=== PATIENT | female | born 1995 | race Caucasian/White ===

== ENCOUNTER → 2018-08-10 09:12 | Outpatient (CLI) | payer BC, SELFPAY ==
[2018-08-10 08:04] VITALS: BMI 26.7
[2018-08-10 10:22] LABS: Absolute Lymphocyte Count 1.67 X10^3/ul (0.83-4.51); Absolute Neutrophil Count 4.9 X10^3/uL (2.0-7.7); Basophil# 0.03 X10^3/uL; Basophil% 0.4 % (0-1); Eosinophils% 1.4 % (0-5); Hematocrit 32.7 % (37-47); Hemoglobin 10.9 g/dl (12.0-15.0); Lymphocyte # 1.67 X10^3/ul (4.0); Lymphocyte % 23.3 % (19-41); Mean Corp Hgb Conc 33.3 g/gl (32-36); Mean Corpuscular Hgb 29.6 pg (27.0-32.0); Mean Corpuscular Volume 88.9 fL (81-99); Mean Platelet Vol. 9.6 fl (6.2-12.0); Neutrophil # 4.87 X10^3/uL (2.7-7.7); Neutrophil % 67.8 % (47-70); Platelet Count 268 K/mm3 (150-450); RBC Distribution Width CV 12.9 % (11.6-14.6); RBC Distribution Width SD 41.6 fl (35.1-43.9); Red Blood Count 3.68 M/mm3 (4.2-5.4); White Blood Count 7.2 K/mm3 (4.4-11.0)
[2018-08-10 10:30] LABS: POSITIVE COUNT NO; POSITIVE DIFFERENTIAL NO; POSITIVE MORPHOLOGY NO
[2018-08-10 11:52] LABS: HIV - WCH Non-Reactive (Nonreactive); Rubella IgG 46.7 IU/mL
[2018-08-10 17:54] LABS: Chlamydia Trachomatis by PCR Negative (Negative); Neisserai gonorrhoeae by PCR Negative (Negative); Probe Check PASS; Sample Adequacy Control PASS; Specimen Processing Control PASS
[2018-08-12 05:48] LABS: Rapid Plasmin Reagin (RPR) NONREACTIVE (NONREACTIVE)
[2018-08-15 14:55] LABS: HPV Reflexed? NOT INDICATED
== END ==
PROVIDERS: Family Provider Family Medicine; PCP Family Medicine; Referring Provider Obstetrics & Gynecology; Visit Provider Obstetrics & Gynecology
DX: Z34.90 Encounter for supervision of normal pregnancy, unspecified, unspecified trimester (principal)
CPT/HCPCS: 36415; 85025; 86592; 86703; 86762; 86850; 86900; 87086; 87088; 87491; 87591; 87624; 88175; G0145

== ENCOUNTER → 2018-12-02 08:30 | Outpatient (CLI) | payer BC, SELFPAY ==
[2018-12-02 08:27] VITALS: BMI 26.7
[2018-12-02 09:25] LABS: Absolute Neutrophil Count 6.8 X10^3/uL (2.0-7.7); Basophil# 0.06 X10^3/uL; Basophil% 0.6 % (0-1); Eosinophil# 0.13 X10^3/uL; Eosinophils% 1.3 % (0-5); Hematocrit 33.9 % (37-47); Hemoglobin 11.3 g/dL (12.0-15.0); Lymphocyte % 19.6 % (19-41); Mean Corp Hgb Conc 33.3 g/dL (32-36); Mean Corpuscular Hgb 30.8 pg (27.0-32.0); Mean Corpuscular Volume 92.4 fL (81-99); Mean Platelet Vol. 9.6 fl (6.2-12.0); Monocyte# 0.75 X10^3/uL; Monocyte% 7.7 % (0-10); NRBC Flagged by Analyzer 0 % (0-5); Neutrophil # 6.82 X10^3/uL (2.7-7.7); Neutrophil % 70.3 % (47-70); Platelet Count 237 K/mm3 (150-450); RBC Distribution Width CV 12.8 % (11.6-14.6); RBC Distribution Width SD 43.2 fl (35.1-43.9); Red Blood Count 3.67 M/mm3 (4.2-5.4); White Blood Count 9.7 K/mm3 (4.4-11.0)
[2018-12-02 09:31] LABS: Glucose Challenge Gest 1H 50g 88 mg/dL (70-140)
[2018-12-02 10:16] LABS: Hepatitis B Surface Antigen Non-Reactive (Nonreactive)
== END ==
PROVIDERS: Family Provider Family Medicine; PCP Family Medicine; Referring Provider Obstetrics & Gynecology; Visit Provider Obstetrics & Gynecology
DX: Z34.90 Encounter for supervision of normal pregnancy, unspecified, unspecified trimester (principal)
CPT/HCPCS: 36415; 82950; 85025; 87340

== ENCOUNTER → 2019-01-12 14:32 | Outpatient (CLI) | payer BC, SELFPAY ==
[2019-01-11 15:17] VITALS: BMI 26.7
[2019-01-12 15:36] LABS: Color, Urine Yellow (Yellow); Glucose, Dipstick Normal (Normal); Ketone-Dipstick Negative (Negative); Leukocyte Esterase-Dipstick 25 /ul (Negative); Nitrite-Dipstick Negative (Negative); Occult Blood-Urine 250 /ul (Negative); Protein-Dipstick 15 mg/dl (Negative); Urine Bilirubin Dipstick Negative (Negative); Urine Clarity Sl. Cloudy (Clear); Urine Urobilinogen Normal (Normal)
[2019-01-12 15:41] LABS: Amorphous Sediment 2+; Bacteria 2+ /hpf (None Seen); Mucous, Urine RARE /hpf (<or=2+); Red Blood Cells-Urine 25-50 SEEN /hpf (0-5); Squamous Epithelial Cells - UA 0-5 SEEN /hpf (5-10); White Blood Cells 5-10 SEEN /hpf (0-5)
== END ==
PROVIDERS: Family Provider Family Medicine; PCP Family Medicine; Referring Provider Nurse Practitioner Family; Visit Provider Nurse Practitioner Family
DX: N39.0 Urinary tract infection, site not specified (principal); R35.0 Frequency of micturition
CPT/HCPCS: 81001; 87086

== ENCOUNTER 2019-01-12 19:05 | Outpatient (CLI) | payer BC, SELFPAY ==
[2019-01-11 15:17] VITALS: BMI 26.7
[2019-01-12 19:41] VITALS: BMI 31.8
[2019-01-12 20:14] LABS: Absolute Lymphocyte Count 2.19 X10^3/uL (0.83-4.51); Absolute Neutrophil Count 10.1 X10^3/uL (2.0-7.7); Basophil# 0.03 X10^3/uL; Basophil% 0.2 % (0-1); Eosinophil# 0.08 X10^3/uL; Eosinophils% 0.6 % (0-5); Hematocrit 31.8 % (37-47); Hemoglobin 10.7 g/dL (12.0-15.0); Lymphocyte # 2.19 X10^3/ul (4.0); Lymphocyte % 16.5 % (19-41); Mean Corp Hgb Conc 33.6 g/dL (32-36); Mean Corpuscular Hgb 30.1 pg (27.0-32.0); Mean Corpuscular Volume 89.6 fL (81-99); Mean Platelet Vol. 10.1 fl (6.2-12.0); Monocyte# 0.78 X10^3/uL; Monocyte% 5.9 % (0-10); NRBC Flagged by Analyzer 0 % (0-5); Neutrophil # 10.12 X10^3/uL (2.7-7.7); Neutrophil % 76.3 % (47-70); Platelet Count 227 K/mm3 (150-450); RBC Distribution Width CV 12.5 % (11.6-14.6); Red Blood Count 3.55 M/mm3 (4.2-5.4); White Blood Count 13.3 K/mm3 (4.4-11.0)
[2019-01-12] MEDS: Ondansetron 4 MG/2 ML Vial IV (20:14)
[2019-01-12] MEDS: HYDROmorphone 1 MG/ML Syringe IV (20:14)
--- NOTE | 2019-01-12 20:18 | CT_ITS ---
STUDY: CT ABDOMEN AND PELVIS WITHOUT CONTRAST REASON FOR EXAM: Female, 23 years old. Flank pain. Surgery 1 week . RADIATION DOSAGE (If Supplied By Facility): CTDIvol = ( 012.00 ) mGy, DLP = ( 603.02 ) mGycm TECHNIQUE: Transaxial images were obtained from the dome of the diaphragm to the symphysis pubis without oral contrast, and without intravenous contrast. Sagittal and coronal images were reconstructed. Individualized dose optimization techniques were used for this CT. COMPARISON: None. FINDINGS: The visualized lung bases are unremarkable. The visualized portions of the heart are within normal limits. Normal liver. Normal gallbladder and extrahepatic biliary system. Normal spleen. Normal pancreas. Normal bilateral adrenal glands. There is a 3 mm nonobstructing calculus in the mid right kidney. No other evidence of renal abnormality. Normal left kidney. Normal visualized ureters. Normal visualized stomach. Normal small intestine. There is feces scattered throughout the nondistended colon. The appendix is visualized and appears normal. Normal abdominal aorta. Normal inferior vena cava. Normal retroperitoneum. Normal urinary bladder. Uterus is enlarged. There is evidence of a late term intrauterine in a cephalic presentation. No obvious anatomic abnormality. The placenta appears fundal and posterior in location. There is adequate amniotic fluid. There is no free air or free fluid within the abdominal cavity. Normal abdominal wall. Normal osseous structures. CT/Abdomen/Pelvis without Cont IMPRESSION: 1. Nonobstructing right renal calculus. There is no other obvious renal or ureteral or urinary bladder abnormality. 2. Late term intrauterine . 3. No other evidence of acute intra-abdominal or pelvic abnormality. Electronically Signed: José Luis Haines DO at 20:55 EST Tel [phone], Service support ,
[2019-01-12] MEDS: 0.9% Normal Saline 1,000 ML IV.SOLN. 1000 ML IV (21:06)
[2019-01-12] MEDS: Ceftriaxone 1 GM/50 ML BAG IV (21:19)
--- NOTE | 2019-01-13 04:02 | OB.TRI.NOTE ---
- Problem List (1) Nephrolithiasis Status: Acute Comment: seen 01/12- ct showed kidney stones, recommend fluids and given augmentin History of Present Illness Date of Service: 01/12/19 Was patient seen by the physician?: No Reason For Visit: LEFT SIDED BACK PAIN History of Present Illness: flank pain, recent UTI Allergies No Known Allergies Allergy (Verified 01/12/19 19:42) - Pertinent Past Medical History Medical History: Past Medical History (Last Reviewed 01/11/19 @ 15:07 by Ethan Foreman) History of cardiac murmur Family history of heart murmur Surgical History: Past Surgical History (Last Reviewed 01/11/19 @ 15:07 by Ethan Foreman) S/P tonsillectomy and adenoidectomy Laboratory Studies: Laboratory Tests 01/12/19 Range/Units 20:05 WBC 13.3 H (4.4-11.0) K/mm3 RBC 3.55 L (4.2-5.4) M/mm3 Hgb 10.7 L (12.0-15.0) g/dL Hct 31.8 L (37-47) % MCV 89.6 (81-99) fL MCH 30.1 (27.0-32.0) pg MCHC 33.6 (32-36) g/dL RDW Std Deviation 41.0 (35.1-43.9) fl RDW Coeff of Toni 12.5 (11.6-14.6) % Plt Count 227 (150-450) K/mm3 MPV 10.1 (6.2-12.0) fl Immature Gran % (Auto) 0.500 (0.0-0.9) % Neut % (Auto) 76.3 H (47-70) % Lymph % (Auto) 16.5 L (19-41) % Waller % (Auto) 5.9 (0-10) % Eos % (Auto) 0.6 (0-5) % Baso % (Auto) 0.2 (0-1) % Absolute Neuts (auto) 10.1 H (2.0-7.7) X10^3/uL Absolute Lymphs (auto) 2.19 (0.83-4.51) X10^3/uL Nucleated RBC % 0 (0-5) % NST - FHR Rate Baby A Baseline: 130 Variability:: Moderate Accelerations:: 15 x 15 Decelerations:: None NST Reactive:: Yes FHR Category:: Category I Uterine Activity:: irregular Impression/Plan nephrolithiasis Multi Select Codes - Urinary/Genital Urinary/Genital CPT Codes: 05730-63 non-stress test Interp
== END 2019-01-12 22:50 | disposition home or self-care (01) ==
LOC: WPOUT 19:16 → WP 19:20
PROVIDERS: Family Provider Family Medicine; PCP Family Medicine; Referring Provider Obstetrics & Gynecology; Visit Provider Obstetrics & Gynecology
DX: O26.831 Pregnancy related renal disease, first trimester (principal); N20.0 Calculus of kidney; Z3A.00 Weeks of gestation of pregnancy not specified
CPT/HCPCS: 96365; 96366; 96367; 36415; 59025; 59050; 74176; 85025; 87086; 99218; J7030; G0378; J2405

== ENCOUNTER → 2019-02-13 12:53 | Outpatient (CLI) | payer BC, SELFPAY ==
[2019-02-13 08:28] VITALS: BMI 31.8
== END ==
PROVIDERS: Family Provider Family Medicine; PCP Family Medicine; Referring Provider Nurse Practitioner Women's Health; Visit Provider Nurse Practitioner Women's Health
DX: Z34.90 Encounter for supervision of normal pregnancy, unspecified, unspecified trimester (principal)
CPT/HCPCS: 87081

== ENCOUNTER 2019-03-11 09:01 | Outpatient (CLI) | payer BC, SELFPAY ==
[2019-03-10 10:12] VITALS: BMI 31.8
[2019-03-11 09:20] VITALS: BMI 33.5
--- NOTE | 2019-03-11 10:41 | OB.TRI.PN ---
Progress Notes Date of Service: 03/11/19 Progress Note: seen for vb and abdminal pain fht 140s moderate vairbilaity reactive no decels cat I toco q 2-4 a/p abdominal pain - false labor dc home no cervical change labor precautions and kick counts Multi Select Codes - Urinary/Genital Urinary/Genital CPT Codes: 26366-63 non-stress test Interp
== END 2019-03-11 09:40 | disposition home or self-care (01) ==
PROVIDERS: PCP Family Medicine; Referring Provider Obstetrics & Gynecology; Visit Provider Obstetrics & Gynecology
DX: O47.9 False labor, unspecified (principal); Z3A.00 Weeks of gestation of pregnancy not specified
CPT/HCPCS: 59025; 59050; 99218; G0378

== ENCOUNTER 2019-03-12 09:10 | Inpatient (IN) | payer BC, SELFPAY ==
[2019-03-11 09:20] VITALS: BMI 33.5
[2019-03-12] MEDS: Lactated Ringers 1,000 ML 50 ML IV (09:40)
[2019-03-12 09:57] VITALS: BMI 33.5
[2019-03-12 10:22] LABS: Absolute Lymphocyte Count 2.13 X10^3/uL (0.83-4.51); Absolute Neutrophil Count 9.9 X10^3/uL (2.0-7.7); Basophil# 0.06 X10^3/uL; Basophil% 0.5 % (0-1); Eosinophil# 0.03 X10^3/uL; Eosinophils% 0.2 % (0-5); Hematocrit 38.3 % (37-47); Hemoglobin 12.5 g/dL (12.0-15.0); Lymphocyte # 2.13 X10^3/ul (4.0); Lymphocyte % 16.3 % (19-41); Mean Corp Hgb Conc 32.6 g/dL (32-36); Mean Corpuscular Hgb 29.2 pg (27.0-32.0); Mean Corpuscular Volume 89.5 fL (81-99); Mean Platelet Vol. 11.5 fl (6.2-12.0); Monocyte# 0.74 X10^3/uL; Monocyte% 5.7 % (0-10); NRBC Flagged by Analyzer 0 % (0-5); Neutrophil # 9.91 X10^3/uL (2.7-7.7); Neutrophil % 75.6 % (47-70); Platelet Count 228 K/mm3 (150-450); RBC Distribution Width CV 14.6 % (11.6-14.6); RBC Distribution Width SD 46.8 fl (35.1-43.9); Red Blood Count 4.28 M/mm3 (4.2-5.4); White Blood Count 13.1 K/mm3 (4.4-11.0)
--- NOTE | 2019-03-12 10:32 | PCM.HP.OB ---
- Problem List (1) Active labor at term Status: Acute (2) Supervision of normal Status: Acute Qualifiers: Comment: PRR (HepB) ALLIE 03/10/2019 girl Spouse Abram (3) Status: Acute Qualifiers: Comment: declined genetic, carrier and NTD. MFM Anatomy US normal. Cardiac and spine views complete and normal History Date of Admission: 03/12/19 Final ALLIE: 03/10/19 Gestational age: 40 Weeks and 2 Days History of this : This is a 24 year-old, at 40 weeks gestational age presents IAL 4-5 cm. she co regular ctx and no vb or lof Medical History: Medical History (Last Reviewed 03/10/19 @ 10:08 by Nita Frost) History of cardiac murmur Z86.79 Family history of heart murmur Z84.89 Surgical History: Surgical History (Last Reviewed 03/10/19 @ 10:08 by Nita Frost) S/P tonsillectomy and adenoidectomy Z90.89 Allergies No Known Allergies Allergy (Verified 03/10/19 10:08) Home Medications: Home Medications vitamin#30 30 mg iron-10 mg iron-folic acid 1 mg-omg3 capsule 1 cap PO DAILY cap 08/10/18 Magnesium Citrate [Citrate Of Magnesia] 300 ml PO Q8 03/11/19 Smoking Status: Former smoker Number of Fetus(es): 1 NST - FHR Rate Baby A Baseline: 130 Variability:: Moderate Accelerations:: 15 x 15 Decelerations:: None NST Reactive:: Yes FHR Category:: Category I Uterine Activity:: q 2-3 History Past Pregnancies: Past Pregnancies Delivery Date Name GA/ Weeks Outcome Route Wt Sex Labor Length Anesthesia Delivery Location Provider FOB Labs: Mom's Labs & Results 03/12/19 03/12/19 09:40 09:40 WBC 13.1 H RBC 4.28 Hgb 12.5 Hct 38.3 MCV 89.5 MCH 29.2 MCHC 32.6 RDW Std Deviation 46.8 H RDW Coeff of Toni 14.6 Plt Count 228 MPV 11.5 Immature Gran % (Auto) 1.700 H Neut % (Auto) 75.6 H Lymph % (Auto) 16.3 L [place] % (Auto) 5.7 Eos % (Auto) 0.2 Baso % (Auto) 0.5 Absolute Neuts (auto) 9.9 H Absolute Lymphs (auto) 2.13 Nucleated RBC % 0 Blood Type Pending Antibody Screen Pending Course Did the patient receive Yes care? Labs RPR/VDRL/Syphilis Nonreactive Rubella status Equivocal HbSAg Negative Date Done: 12/02/18 Chlamydia Negative Gonorrhea Negative HIV/AIDS Reactive Group B Strep: Negative Social History Hx Smoking Yes Smoking Status Former smoker How long have you used denies substances (years)? Expected Delivery Method: Spontaneous Vaginal Review of Systems Constitutional: Denies: Fever, Malaise Eyes: Denies: Blurred vision, Vision Change HEENT: Denies: Head Aches, Visual Changes Cardiovascular: Denies: Chest Pain, Palpitations Respiratory: Denies: Cough, Shortness of Breath, Wheezing Gastrointestinal: Denies: Abdominal Pain, Diarrhea, Nausea, Vomiting Genitourinary: Denies: Dysuria, Hematuria Musculoskeletal: Denies: Joint Pain, Muscle pain Skin: Denies: Lesions, Rash Neurological: Denies: Blurred vision, Focal weakness, Headaches Psychiatric: Denies: Anxiety, Depression Endocrine: Denies: Heat/ Cold Intolerance Hematologic/ Lymphatic: Denies: Easy Bruising, Easy Bleeding Physical Exam General: Alert, Cooperative, No apparent distress HEENT: Atraumatic, Normocephalic. Negative for: Thyromegaly, Lymphadenopathy Cardiovascular: Regular rate Lungs: Normal air movement Abdomen: Soft, Non Tender, Gravid Neurological: Deep Tendon Reflexes 2+/4 and Symmetrical, Neuro grossly intact. Negative for: Clonus [employer]: Normal external genitalia. Negative for: Vulvar lesions Estimated gestational size: Appropriate for gestational size Presentation: Cephalic Cervix Dilation (cm): 4.5 Assessment/Plan All Active Problems (Last Reviewed 03/10/19 @ 10:08 by Nita Frost) Nephrolithiasis (Acute) Active labor at term (Acute) Supervision of normal (Acute) (Acute) Missed (Resolved) Threatened (Resolved) This is a 24 year-old, , at 40 weeks gestational age presents IAL. Patient presents IAL, arom and pit PRN. Pain management: plans epidural. GBS neg. Management of any complications: none I have reviewed the [facility] and made any clinically relevant updates.
[2019-03-12] MEDS: Ondansetron 4 MG/2 ML Vial IV (16:53)
[2019-03-12] MEDS: 0.9% Saline Lock 10 ML Syringe IV ×2 (16:53→23:42)
[2019-03-12] MEDS: Lactated Ringers 500 ML 999 ML IV ×2 (17:15→20:15)
[2019-03-12] MEDS: fentaNYL-bupivacaine (epidural) 100 ML BAG EPIDURAL (18:09)
--- NOTE | 2019-03-12 21:27 | PCM.OPRPT ---
Problem List (1) Active labor at term Status: Acute (2) Supervision of normal Status: Acute Qualifiers: Comment: PRR (HepB) ALLIE 03/10/2019 girl Spouse Abram (3) Status: Acute Qualifiers: Comment: declined genetic, carrier and NTD. MFM Anatomy US normal. Cardiac and spine views complete and normal (4) Fourth degree perineal laceration during delivery, delivered Status: Acute Comment: intermediate risk for recurrence- may be considered if smaller EFW Vaginal Delivery Maternal Presentation: Active Labor ial Amniotic Membrane Rupture Type: Artificial Amniotic Fluid Description: Clear Final ALLIE: 03/10/19 Gestational age: 40 Weeks and 2 Days Date of Procedure: 03/12/19 Pre-Operative Diagnosis: ial Post-Operative Diagnosis: same plus 4th degree laceration Surgery/ Procedure Performed: Spontaneous Vaginal Delivery Type of Anesthesia: Epidural Description of Procedure: Patient began pushing and delivered the head in the CHRISTY presentation. The head was delivered atraumatically . The anterior and posterior shoulders delivered without complication followed by the rest of the and the infant was placed on the maternal abdomen. Delayed cord clamping was employed for approximately 60 seconds. Cord was clamped and cut and gentle traction was applied to the cord and the placenta delivered spontaneously immediately following it was noted to be intact with three-vessel cord. The perineum and vagina were inspected and noted to have what was initially thought to be third-degree perineal laceration which was repaired partially and then with rectal exploration a small rectal mucosal tear was noted and therefore the repair was taken down and redone to include the rectal mucosa separation making and 1/4 degree perineal laceration. The rectal mucosa was reapproximated in 2 layers with 3-0 Vicryl Rapide and a third layer overlapping and reapproximating the rectovaginal fascia was done and the anal sphincter was repaired including the capsule and muscle with 2 interrupted [id number] stitches of 2-0 PDS. The rest of the laceration was then closed per routine incorporating Betadine washes throughout the repair and changing gloves. The repair came together well and excellent hemostasis was noted. Increased EBL was noted overall due to the lacerations. EBL was 700 cc. Some postdelivery hypotension was noted which was felt to be intravascular depletion and therefore IV fluids including hetastarch was given and a stat hemoglobin was sent. Upon review of the predelivery hemoglobin and taking to account EBL, significant anemia is unlikely. Patient and tolerated delivery well. Presentation: CHRISTY Placental Delivery Description: Spontaneous Placenta Disposition: [facility] Cord Vessel Description: 3 Vessels Estimated Blood Loss: 700 Infant A gender: Female Episiotomy Description: None Laceration: Perineal Extension/lac, 4th Degree Medications given after delivery: IV Pitocin Complications: None Multi Select Codes - Urinary/Genital Urinary/Genital CPT Codes: 95854 Vaginal Delivery global pkg - fourth degree laceration repair
[2019-03-12] MEDS: Oxytocin 30 units/NS 500 ml 30 UNITS/500 ML IV.SOLN 999 UNITS IV (22:05)
[2019-03-12] MEDS: Lactated Ringers 1,000 ML 999 ML IV (22:31)
[2019-03-12] MEDS: Oxytocin 30 units/NS 500 ml 30 UNITS/500 ML IV.SOLN 334 UNITS IV (22:35)
[2019-03-12 22:50] LABS: Hematocrit 26.7 % (37-47); Hemoglobin 8.8 g/dL (12.0-15.0)
[2019-03-12] MEDS: Cefazolin 2 GM in 0.9% Normal Saline 100 ML IV (23:22)
[2019-03-12] MEDS: Ketorolac 30 MG/ML Syringe IM (23:41)
[2019-03-13 03:55] VITALS: BP 115/75; PULSE 75; RESP 16; TEMP 36.9
[2019-03-13 04:55] VITALS: BP 107/58
[2019-03-13] MEDS: Ketorolac 10 MG Tablet PO ×3 (06:39→17:55)
[2019-03-13 07:51] VITALS: BP 109/67; PULSE 80; RESP 16; TEMP 36.8
--- NOTE | 2019-03-13 08:19 | PCM.PN.OB ---
Patient Problems: Active and Suspected Problems (Last Reviewed 03/10/19 @ 10:08 by Nita Frost) Active labor at term (Acute) Fourth degree perineal laceration during delivery, delivered (Acute) intermediate risk for recurrence- may be considered if smaller EFW Subjective: Doing well, no complaints.Pain controlled. Denies CP, SOB, N,V. Ambulating well, tolerating po. Lochia moderate, going well. Has not urinated yet, straight cath early AM - Physical Exam Vitals/I&O's: Vital Signs Temp Pulse Resp BP 98.3 F 80 16 109/67 03/13/19 07:51 03/13/19 07:51 03/13/19 07:51 03/13/19 07:51 Oxygen Delivery Method Room Air Weight: 189 lb 3.2 oz Body Mass Index (BMI) 33.5 Intake and Output for Last 24 Hours 03/11/19 03/12/19 03/13/19 23:59 23:59 23:59 Intake Total 3271.59 / 3271.59 437.43 / 437.43 Output Total 80 / 80 200 / 200 Balance 3191.59 / 3191.59 237.43 / 237.43 General: Alert, Oriented x3 Abdomen: Soft, Non Tender, Non-Distended, - - FF below U. Per nurse exam-perineum well approximated and limited edema. Laboratory Results 03/12/19 09:40: WBC 13.1 H, RBC 4.28, Hgb 12.5, Hct 38.3, MCV 89.5, MCH 29.2, MCHC 32.6, RDW Std Deviation 46.8 H, RDW Coeff of Toni 14.6, Plt Count 228, MPV 11.5, Immature Gran % (Auto) 1.700 H, Neut % (Auto) 75.6 H, Lymph % (Auto) 16.3 L, Ashley % (Auto) 5.7, Eos % (Auto) 0.2, Baso % (Auto) 0.5, Absolute Neuts (auto) 9.9 H, Absolute Lymphs (auto) 2.13, Nucleated RBC % 0 03/12/19 09:40: Blood Type A POSITIVE, Antibody Screen NEGATIVE 03/12/19 22:41: Hgb 8.8 L, Hct 26.7 L Current Medications Acetaminophen (Tylenol) 1,000 mg PO Q8H PRN PRN PRN Reason: Pain Score 1-3/10 Bisacodyl (Dulcolax) 10 mg RECTAL UD PRN PRN Reason: If no BM Dibucaine (Dibucaine) 1 applic TOPICAL TID PRN PRN; Protocol PRN Reason: Discomfort Fentanyl/Bupivacaine/Sodium Chlor () 0 ml EPIDURAL UD [facility]; Protocol Last Admin: 03/12/19 18:09 Dose: 10 ml Documented by: Hydrocortisone (Hytone) 1 applic TOPICAL TID PRN PRN; Protocol PRN Reason: Discomfort Naloxone HCl 4 mg/ Dextrose 504 mls @ 0 mls/hr IV .Q0M PRN; Protocol PRN Reason: To maintain Resp. rate >10 Ketorolac Tromethamine (Toradol) 10 mg PO Q6H [facility] Stop: 03/17/19 22:52 Last Admin: 03/13/19 06:39 Dose: 10 mg Documented by: Methylergonovine Maleate (Methergine) 0.2 mg IM X1 PRN PRN Reason: Excess bleeding/uterine atony Naloxone HCl (Narcan) 0.02 mg IV Q1M PRN PRN Reason: RR <10 and pt unresponsive Naproxen (Naprosyn) 500 mg PO Q8H PRN PRN PRN Reason: Pain Score 1-3/10 Ondansetron HCl (Zofran) 4 mg IV Q4H PRN PRN PRN Reason: Nausea Oxycodone HCl (Oxyir) 5 - 10 mg PO Q4H PRN PRN PRN Reason: Pain Score 4-10/10 Multivit/Folic Acid/Iron (Prenatabs Fa) 1 tablet PO DAILY@1200 [facility] Senna/Docusate Sodium (Senokot-S, Beverly-Colace) 1 tablet PO BID [facility] Simethicone (Mylicon) 80 mg PO PCHS PRN PRN Reason: Indigestion/Stomach pain Sodium Chloride () 5 - 15 ml IV UD PRN PRN Reason: SALINE FLUSH Last Admin: 03/12/19 23:42 Dose: 10 ml Documented by: Medical Necessity - Tobacco Use Smoking Status: Former smoker Assessment/Plan All Active Problems (Last Reviewed 03/10/19 @ 10:08 by Nita Frost) Nephrolithiasis (Acute) Active labor at term (Acute) Fourth degree perineal laceration during delivery, delivered (Acute) Supervision of normal (Acute) (Acute) Missed (Resolved) Threatened (Resolved) s/p PPD # 1 1. routine post delivery care 2. breast feeding- support given 3. rh positive 4. rubella equivicol, plan MMR 5. stool softener scheduled.
[2019-03-13] MEDS: Senna/Docusate Sodium 1 Tablet PO ×2 (09:02→22:08)
[2019-03-13] MEDS: Prenatal Vits Tablet 1 TABLET PO (13:00)
[2019-03-13 13:05] VITALS: BP 102/63; PULSE 78; TEMP 36.9
--- NOTE | 2019-03-13 13:41 | NURSING ---
This instructor reviewed the documentation completed by Maggie Funk, student nurse. Also, directly observed the medication administration of toradol and vitamins.
[2019-03-13 18:00] VITALS: BP 118/69; PULSE 91; RESP 16; TEMP 36.9
[2019-03-13 20:24] VITALS: BP 112/78; PULSE 93; RESP 16; TEMP 37.4
[2019-03-14] MEDS: Ketorolac 10 MG Tablet PO ×3 (00:18→12:34)
[2019-03-14 03:16] VITALS: BP 107/55; PULSE 73; RESP 16; TEMP 37.1
--- NOTE | 2019-03-14 06:57 | DCINST_ITS ---
Discharge Diet: No Restrictions Discharge Activity: Return to Normal Activity, May not drive while taking narcotic pain medications., May Shower May resume sexual activity in: 4-6 weeks Call your doctor if your incision/area has: Continuous Slow Oozing, Sudden Increased Bleeding, Increased Pain/ Swelling, Increased Redness, Foul Smelling Discharge Additional Instructions: If you experience any of the following, contact your healthcare provider. * Bleeding that soaks a pad every hour for 2 hours * Fever 100.4 or higher * Unrelieved incision or abdominal pain * Swelling, redness, discharge or bleeding from your incision or episiotomy site * Your incision begins to separate * Problems urinating (including inability to urinate or burning while urinating). * Visual changes * Severe headache * Flu-like symptoms * Pain or redness in one of both of your breasts * Pain, warmth, tenderness or swelling in your legs, especially the calf area * Frequent nausea and vomiting * Symptoms of depression or anxiety If you experience any of the following, call 911 or go to the nearest Emergency Room. * Chest pain * Problems breathing * Seizure activity * Partial or complete paralysis of a body part, slurred speech, weakness or drooping of the face, or a sudden inability to walk or hold your balance Allergies/Adverse Reactions: Allergies No Known Allergies Allergy (Verified 03/12/19 11:18) Medications to take at Discharge vitamin#30 30 mg iron-10 mg iron-folic acid 1 mg-omg3 capsule 1 cap PO DAILY cap 08/10/18 Magnesium Citrate [Citrate Of Magnesia] 300 ml PO Q8 03/11/19 Docusate Sodium [Colace] 100 mg PO BID #60 cap 03/14/19 Ibuprofen [Motrin] 600 mg PO Q6H PRN PRN #30 tab 03/14/19 Oxycodone HCl/Acetaminophen [Percocet 5-325] 1 - 2 tablet PO Q6H PRN PRN 7 Days #15 tablet 03/14/19 The following prescriptions were given: Docusate Sodium [Colace] 100 mg PO BID #60 cap Transmission Status: Pending to [facility] Ibuprofen [Motrin] 600 mg PO Q6H PRN PRN #30 tab PRN Reason: Pain Transmission Status: Pending to [facility] Oxycodone HCl/Acetaminophen [Percocet 5-325] 1 - 2 tablet PO Q6H PRN PRN 7 Days #15 tablet PRN Reason: Pain Transmission Status: Sent to [facility] Please Follow Up With: Lois Killian MD - [phone] When: Call to make an appointment with your doctor in 6 weeks. If you had elevated Blood pressure or 4th degree laceration you will need to be seen in 2 weeks. Primary Care Physician: Lele Barraza III, MD [Primary Care Provider] - Test Results: Test results from this visit will be discussed in further detail at your follow- up appointment, if applicable.
--- NOTE | 2019-03-14 08:05 | PCM.PN.OB ---
Patient Problems: Active and Suspected Problems (Last Reviewed 03/10/19 @ 10:08 by Nita Frost) Active labor at term (Acute) Fourth degree perineal laceration during delivery, delivered (Acute) intermediate risk for recurrence- may be considered if smaller EFW Subjective: Doing well, no complaints.Pain controlled. Did have 4th degree lac-states pain controlled. Denies CP, SOB, N,V. Ambulating well, tolerating po. Lochia moderate, going well. - Physical Exam Vitals/I&O's: Vital Signs Temp Pulse Resp BP 98.7 F 73 16 107/55 L 03/14/19 03:16 03/14/19 03:16 03/14/19 03:16 03/14/19 03:16 Oxygen Delivery Method Room Air Weight: 189 lb 3.2 oz Body Mass Index (BMI) 33.5 Intake and Output for Last 24 Hours 03/12/19 03/13/19 03/14/19 23:59 23:59 23:59 Intake Total 3271.59 / 3271.59 437.43 / 437.43 Output Total 80 / 80 1580 / 1580 Balance 3191.59 / 3191.59 -1142.57 / -1142.57 General: Alert, Oriented x3 Abdomen: Soft, Non Tender, Non-Distended, - - FF below U Current Medications Acetaminophen (Tylenol) 1,000 mg PO Q8H PRN PRN PRN Reason: Pain Score 1-3/10 Bisacodyl (Dulcolax) 10 mg RECTAL UD PRN PRN Reason: If no BM Dibucaine (Dibucaine) 1 applic TOPICAL TID PRN PRN; Protocol PRN Reason: Discomfort Fentanyl/Bupivacaine/Sodium Chlor () 0 ml EPIDURAL UD [facility]; Protocol Last Admin: 03/14/19 07:46 Dose: Not Given Documented by: Hydrocortisone (Hytone) 1 applic TOPICAL TID PRN PRN; Protocol PRN Reason: Discomfort Naloxone HCl 4 mg/ Dextrose 504 mls @ 0 mls/hr IV .Q0M PRN; Protocol PRN Reason: To maintain Resp. rate >10 Ketorolac Tromethamine (Toradol) 10 mg PO Q6H [facility] Stop: 03/17/19 22:52 Last Admin: 03/14/19 06:06 Dose: 10 mg Documented by: Methylergonovine Maleate (Methergine) 0.2 mg IM X1 PRN PRN Reason: Excess bleeding/uterine atony Naloxone HCl (Narcan) 0.02 mg IV Q1M PRN PRN Reason: RR <10 and pt unresponsive Naproxen (Naprosyn) 500 mg PO Q8H PRN PRN PRN Reason: Pain Score 1-3/10 Ondansetron HCl (Zofran) 4 mg IV Q4H PRN PRN PRN Reason: Nausea Oxycodone HCl (Oxyir) 5 - 10 mg PO Q4H PRN PRN PRN Reason: Pain Score 4-10/10 Multivit/Folic Acid/Iron (Prenatabs Fa) 1 tablet PO DAILY@1200 [facility] Last Admin: 03/13/19 13:00 Dose: 1 tablet Documented by: Senna/Docusate Sodium (Senokot-S, Beverly-Colace) 1 tablet PO BID [facility] Last Admin: 03/13/19 22:08 Dose: 1 tablet Documented by: Simethicone (Mylicon) 80 mg PO PCHS PRN PRN Reason: Indigestion/Stomach pain Sodium Chloride () 5 - 15 ml IV UD PRN PRN Reason: SALINE FLUSH Last Admin: 03/12/19 23:42 Dose: 10 ml Documented by: Medical Necessity - Tobacco Use Smoking Status: Former smoker Assessment/Plan All Active Problems (Last Reviewed 03/10/19 @ 10:08 by Nita Frost) Nephrolithiasis (Acute) Active labor at term (Acute) Fourth degree perineal laceration during delivery, delivered (Acute) Supervision of normal (Acute) (Acute) Missed (Resolved) Threatened (Resolved) s/p PPD # 2 1. routine post delivery care 2. breast feeding- support given 3. rh equivocal-MMR 4. rubella immune 5. Encouraged stool softener at home 6. Home today.
[2019-03-14 09:30] VITALS: BP 110/56; PULSE 88; RESP 16; TEMP 36.4
[2019-03-14] MEDS: Senna/Docusate Sodium 1 Tablet PO (12:34)
[2019-03-14] MEDS: Prenatal Vits Tablet 1 TABLET PO (12:35)
== END 2019-03-14 13:25 | disposition home or self-care (01) | DRG 768 ==
PROVIDERS: Admitting Provider Obstetrics & Gynecology; PCP Family Medicine; Referring Provider Obstetrics & Gynecology; Visit Provider Obstetrics & Gynecology
DX: O36.0130 Maternal care for anti-D [Rh] antibodies, third trimester, not applicable or unspecified (principal); Z37.0 Single live birth; O70.3 Fourth degree perineal laceration during delivery; O26.53 Maternal hypotension syndrome, third trimester; Z3A.40 40 weeks gestation of pregnancy; Z86.79 Personal history of other diseases of the circulatory system; Z87.891 Personal history of nicotine dependence
CPT/HCPCS: 59025; 59050; 85014; 85018; 85025; 86850; 86900; 86901; 99218; J7120; A4216; G0378; J2405

== ENCOUNTER → 2020-07-10 13:40 | Outpatient (CLI) | payer OTHER, SELFPAY ==
[2020-07-10 13:01] VITALS: BMI 33.5
[2020-07-10 14:20] LABS: Absolute Lymphocyte Count 1.12 X10^3/uL (0.83-4.51); Absolute Neutrophil Count 6.9 X10^3/uL (2.0-7.7); Basophil# 0.03 X10^3/uL; Basophil% 0.3 % (0-1); Eosinophil# 0.04 X10^3/uL; Eosinophils% 0.5 % (0-5); Hematocrit 34.7 % (37-47); Hemoglobin 11.7 g/dL (12.0-15.0); Lymphocyte # 1.12 X10^3/ul (0.83-4.51); Lymphocyte % 12.9 % (19-41); Mean Corp Hgb Conc 33.7 g/dL (32-36); Mean Corpuscular Hgb 30.7 pg (27.0-32.0); Mean Corpuscular Volume 91.1 fL (81-99); Monocyte# 0.54 X10^3/uL; Monocyte% 6.2 % (0-10); NRBC Flagged by Analyzer 0 % (0-5); Neutrophil # 6.91 X10^3/uL (2.7-7.7); Neutrophil % 79.8 % (47-70); Platelet Count 223 K/mm3 (150-450); RBC Distribution Width CV 12.6 % (11.6-14.6); RBC Distribution Width SD 41.7 fl (35.1-43.9); Red Blood Count 3.81 M/mm3 (4.2-5.4); White Blood Count 8.7 K/mm3 (4.4-11.0)
[2020-07-10 17:45] LABS: Amphetamine Urine VISTA NEGATIVE (<1000 ng/mL); Barbiturate Urine VISTA NEGATIVE (< 200 ng/mL); Benzodiazepine Urine VISTA NEGATIVE (< 200 ng/mL); Cocaine Urine VISTA NEGATIVE (< 300 ng/mL); Ecstacy Urine VISTA NEGATIVE (< 500 ng/mL); Methadone Urine VISTA NEGATIVE (< 300 ng/mL); PCP Urine VISTA NEGATIVE (< 25 ng/mL); THC Urine VISTA NEGATIVE (< 50 ng/mL); Vista UDS pH Range 7
[2020-07-11 10:33] LABS: HIV - WCH Non-Reactive (Nonreactive); Hepatitis B Surface Antigen Non-Reactive (Nonreactive); Hepatitis C Antibody Non-Reactive (Nonreactive); Rubella IgG Reactive (Nonreactive); Syphilis Antibodies Non-reactive
[2020-07-13 03:06] LABS: Chlamydia By Nucleic Acid AMP Negative (Negative)
[2020-07-13 07:33] LABS: Gonococcus By Nucleic Acid AMP Negative (Negative)
== END ==
PROVIDERS: PCP Family Medicine; Referring Provider Obstetrics & Gynecology; Visit Provider Obstetrics & Gynecology
DX: O26.891 Other specified pregnancy related conditions, first trimester (principal); Z67.91 Unspecified blood type, Rh negative; Z3A.01 Less than 8 weeks gestation of pregnancy
CPT/HCPCS: 36415; 80307; 85025; 86703; 86762; 86780; 86803; 86850; 86900; 86901; 87086; 87088; 87340; 87491; 87591

== ENCOUNTER → 2020-11-29 09:31 | Outpatient (CLI) | payer OTHER, SELFPAY ==
[2020-11-29 09:50] LABS: Absolute Lymphocyte Count 1.91 X10^3/uL (0.83-4.51); Absolute Neutrophil Count 6.1 X10^3/uL (2.0-7.7); Basophil# 0.04 X10^3/uL; Basophil% 0.4 % (0-1); Eosinophil# 0.14 X10^3/uL; Eosinophils% 1.6 % (0-5); Hematocrit 32.9 % (37-47); Hemoglobin 10.8 g/dL (12.0-15.0); Lymphocyte # 1.91 X10^3/ul (0.83-4.51); Lymphocyte % 21.3 % (19-41); Mean Corp Hgb Conc 32.8 g/dL (32-36); Mean Corpuscular Hgb 30.3 pg (27.0-32.0); Mean Corpuscular Volume 92.2 fL (81-99); Mean Platelet Vol. 9.9 fl (6.2-12.0); Monocyte# 0.75 X10^3/uL; Monocyte% 8.4 % (0-10); NRBC Flagged by Analyzer 0 % (0-5); Neutrophil # 6.06 X10^3/uL (2.7-7.7); Neutrophil % 67.5 % (47-70); Platelet Count 226 K/mm3 (150-450); RBC Distribution Width CV 13.5 % (11.6-14.6); RBC Distribution Width SD 45.8 fl (35.1-43.9); Red Blood Count 3.57 M/mm3 (4.2-5.4)
== END ==
PROVIDERS: Referring Provider Obstetrics & Gynecology; Visit Provider Obstetrics & Gynecology
DX: Z34.80 Encounter for supervision of other normal pregnancy, unspecified trimester (principal)
CPT/HCPCS: 36415; 85025

== ENCOUNTER → 2020-12-13 10:25 | Outpatient (CLI) | payer OTHER, SELFPAY ==
[2020-12-13 10:55] LABS: Basophil# 0.04 X10^3/uL; Basophil% 0.4 % (0-1); Eosinophil# 0.12 X10^3/uL; Eosinophils% 1.2 % (0-5); Hematocrit 33.1 % (37-47); Hemoglobin 11.1 g/dL (12.0-15.0); Lymphocyte % 18.5 % (19-41); Mean Corp Hgb Conc 33.5 g/dL (32-36); Mean Corpuscular Hgb 30.4 pg (27.0-32.0); Mean Corpuscular Volume 90.7 fL (81-99); Monocyte# 0.61 X10^3/uL; Monocyte% 6.3 % (0-10); NRBC Flagged by Analyzer 0 % (0-5); Neutrophil # 7.03 X10^3/uL (2.7-7.7); Neutrophil % 72.4 % (47-70); Platelet Count 215 K/mm3 (150-450); RBC Distribution Width CV 13.7 % (11.6-14.6); Red Blood Count 3.65 M/mm3 (4.2-5.4); White Blood Count 9.7 K/mm3 (4.4-11.0)
[2020-12-13 11:21] LABS: Glucose Challenge Gest 1H 50g 102 mg/dL (70-140)
== END ==
PROVIDERS: Referring Provider Obstetrics & Gynecology; Visit Provider Obstetrics & Gynecology
DX: Z34.92 Encounter for supervision of normal pregnancy, unspecified, second trimester (principal); Z13.1 Encounter for screening for diabetes mellitus
CPT/HCPCS: 36415; 82950; 85025

== ENCOUNTER → 2021-01-07 10:35 | Outpatient (CLI) | payer OTHER, SELFPAY | PROVIDERS: Visit Provider Obstetrics & Gynecology | DX: O26.899 Other specified pregnancy related conditions, unspecified trimester (principal); R30.0 Dysuria; Z3A.00 Weeks of gestation of pregnancy not specified | CPT/HCPCS: 87086; 87088 ==

== ENCOUNTER → 2021-01-27 | Outpatient (CLI) | payer OTHER, SELFPAY | END | disposition home or self-care (01) | LOC: LABSPEC 13:02 | PROVIDERS: Visit Provider Obstetrics & Gynecology | DX: Z34.80 Encounter for supervision of other normal pregnancy, unspecified trimester (principal) | CPT/HCPCS: 87081 ==

== ENCOUNTER 2021-02-11 08:07 | Outpatient (CLI) | payer OTHER, SELFPAY ==
--- NOTE | 2021-02-11 08:09 | US_ITS ---
STUDY: SECOND AND THIRD TRIMESTER OBSTETRICAL ULTRASOUND - LIMITED REASON FOR EXAM: Female, 26 years old growth LMP: 05/19/2020. PRIOR ULTRASOUND: None. TECHNIQUE: Transabdominal TECHNICAL QUALITY: Adequate. FINDINGS: There is a single intrauterine fetus. The fetus is in a cephalic presentation. There is demonstrated cardiac activity with a heart rate of 147 bpm. There is a normal amniotic fluid volume. The largest amniotic fluid pocket measures 7.2 cm. The amniotic fluid index (SATINDER) is 14.2 cm. The placenta is fundal in location. There are Grade 1 placental changes. BIOMETRY: BPD: 9.35 cm: 38 weeks, 0 days HC: 33.97 cm: 39 weeks, 0 days AC: 39.73 cm: weeks, days FL: 7.57 cm: 38 weeks, 5 days Age by LMP: 38 weeks, 2 days. ALLIE by LMP: 02/23/2021 age by current US: 38 weeks, 4 days. ALLIE by current US: 02/21/2021. Estimated weight: 4489 grams, +/- 673 grams, 99 percentile. Gender: US/OB Limited With Biometrics IMPRESSION: Single live intrauterine gestation with a mean gestational age of 38 weeks and 4 days Electronically Signed: Chan Freed MD at 15:52 EST , Service support ,
== END 2021-02-11 23:59 | disposition short-term general hospital (02) ==
LOC: OPUS 08:07
PROVIDERS: Referring Provider Nurse Practitioner Women's Health; Visit Provider Nurse Practitioner Women's Health
DX: O98.513 Other viral diseases complicating pregnancy, third trimester (principal); U07.1 COVID-19; Z3A.00 Weeks of gestation of pregnancy not specified
CPT/HCPCS: 76816

== ENCOUNTER 2021-02-21 12:40 | Outpatient (CLI) | payer OTHER, SELFPAY | END 2021-02-21 23:59 | disposition short-term general hospital (02) | LOC: LABSPEC 12:42 | PROVIDERS: Referring Provider Obstetrics & Gynecology; Visit Provider Obstetrics & Gynecology | DX: Z34.80 Encounter for supervision of other normal pregnancy, unspecified trimester (principal); Z20.822 Contact with and (suspected) exposure to COVID-19 | CPT/HCPCS: 87635; U0003; U0005 ==

== ENCOUNTER 2021-02-24 07:30 | Inpatient (IN) | payer OTHER, SELFPAY ==
[2021-02-24] VITALS (44 sets, daily range): BP systolic 94–145; BP diastolic 50–87; PULSE 44–107; RESP 16; TEMP 36.6–37.4; O2SAT 83–100; BMI 33.3
[2021-02-24] MEDS: Lactated Ringers 1,000 ML 50 ML IV (07:50)
[2021-02-24 08:05] LABS: Absolute Neutrophil Count 6.2 X10^3/uL (2.0-7.7); Basophil# 0.06 X10^3/uL; Basophil% 0.6 % (0-1); Eosinophil# 0.08 X10^3/uL; Eosinophils% 0.8 % (0-5); Hematocrit 35.1 % (37-47); Hemoglobin 11.5 g/dL (12.0-15.0); Lymphocyte % 25.5 % (19-41); Mean Corp Hgb Conc 32.8 g/dL (32-36); Mean Corpuscular Hgb 29.8 pg (27.0-32.0); Mean Corpuscular Volume 90.9 fL (81-99); Mean Platelet Vol. 11.3 fl (6.2-12.0); Monocyte% 7.1 % (0-10); NRBC Flagged by Analyzer 0 % (0-5); Neutrophil # 6.21 X10^3/uL (2.7-7.7); Neutrophil % 63.3 % (47-70); Platelet Count 189 K/mm3 (150-450); RBC Distribution Width CV 14.9 % (11.6-14.6); RBC Distribution Width SD 48.9 fl (35.1-43.9); Red Blood Count 3.86 M/mm3 (4.2-5.4); White Blood Count 9.8 K/mm3 (4.4-11.0)
[2021-02-24] MEDS: Oxytocin 30 units/NS 500 ml 30 UNITS/500 ML IV.SOLN IV (08:14)
[2021-02-24] MEDS: Lactated Ringers 500 ML 999 ML IV (10:57)
[2021-02-24] MEDS: fentaNYL-bupivacaine (epidural) 100 ML BAG EPIDURAL ×2 (12:23→12:29)
[2021-02-24] MEDS: Oxytocin 30 units/NS 500 ml 30 UNITS/500 ML IV.SOLN 334 UNITS IV (16:53)
[2021-02-24] MEDS: Methylergonovine 0.2 MG/ML Ampul IM (16:53)
--- NOTE | 2021-02-24 17:35 | HP.PCM.OB_ITS ---
HPI - General General Date of Admission: 02/24/21 HPI Narrative SHERRI ROSEN, is a 26 F who presents for IOL sec history of fourth degree. Maternal Data Information ALLIE Calculator Estimated Delivery Date Method Current WG Current Estimate 02/23/21 Ultrasound #1 40w 1d Other Estimates 02/06/21 LMP (Uncertain) 42w 4d PFSH PFS Medical History (Updated 02/24/21 @ 08:04 by Hortensia Cisneros) Family history of heart murmur History of cardiac murmur macrosomia hemorrhage Home Medications vitamin#30 30 mg iron-10 mg iron-folic acid 1 mg-omg3 capsule 1 cap PO DAILY cap 08/10/18 [History Last Taken 02/23/21 10:00] ferrous sulfate 325 mg PO DAILY 02/24/21 [History Last Taken 02/23/21 22:00] Allergy/AdvReac Type Severity Reaction Status Date / Time No Known Allergies Allergy Verified 02/21/21 08:18 Family History Father Heart disease Grandmother No problems noted. Surgical History S/P tonsillectomy and adenoidectomy Social History adopted: No household members: spouse and children housing: house number of children: 1 current occupational status: employed current occupation: [employer] Smoking Status: Former smoker second hand exposure: No alcohol intake: never substance use type: does not use what type of physical activity do you participate in: none and walking seatbelt use: always do you feel safe at home: Yes additional social history: Abram Patient works at [employer] History 2 Elective abortions Hx Para 1 Spontaneous abortions Hx # Term Pregnancies Ectopic pregnancies Hx # Pregnancies Multiple births # of living children 1 Past Pregnancies Del. Date Name GA/Weeks Outcome Route Bth Weight Infant Gen Labor Lgth Anesthesia Del Locatn Provider FOB 03/12/19 Snow 40 live - full term 8lbs 11oz Female e pidural [facility] SUN[facility] Abram Delivery Date: 03/12/19 4 degree laceration Erna Smith Visit Details Expected Delivery Route/Plan discussed risks of recurrent laceration, desires , discussed IOL 39-40 to reduce size at Labor Preferences- labor support person: Abram labor intervention preferences: minimal intervention if possible pain management options preferred: epidural cut cord/dad catch: desires delayed : [] PP control planned: declines LARC discussed possible routes of delivery and associated risks: [] special requests: [] Plans covid vaccine: naturally immune, counseled regarding risk of covid in vs vaccination and declined vaccination flu vaccine: declined tdap vaccine: declined rhogam: [] LARC form signed: 12/26/2020 movement and labor precautions reviewed. Problem list reviewed and updated with the most current plan of care details and appropriate orders placed. Relevant counseling for the gestational age provided. Continue routine care and follow up unless otherwise noted in visit notes/problem list details OB Flowsheet Initial Weight: Not Recorded Date -?-?-?-?-?-?-?-?-?-?-?-?- EGA Weight BP Urine Prot -?-?-?-?-?-?-?-?-?-?-?-?- Glucose FHR FuHt Pres Dilation -?-?-?-?-?-?-?-?-?-?-?-?- Effaced St Visit Note 07/02/20 -?-?-?-?-?-?-?-?-?-?-?-?- 6w 2d -?-?-?-?-?-?-?-?-?-?-?-?- -?-?-?-?-?-?-?-?-?-?-?-?- 07/10/20 -?--?-?-?-?-?-?-?-?-?-?-?- 7w 3d 164 lb 138/70 -?-?-?-?-?-?-?-?-?-?-?-?- 160 -?-?-?-?-?-?-?-?-?-?-?-?- GP - CRL 13mm co nsistent with LMP. 08/09/20 -?-?-?-?-?-?-?-?-?-?-?-?- 11w 5d 161 lb 6 oz 114/62 Nega tive -?-?-?-?-?-?-?-?-?-?-?-?- Negative 170 -?-?-?-?-?-?-?-?-?-?-?-?- GP - no cramping or bleeding. Anatomy ordered. 09/06/20 -?-?-?-?-?-?-?-?-?-?-?-?- 15w 5d 166 lb 2 oz 130/62 Nega tive -?-?-?-?-?-?-?-?-?-?-?-?- Negative 155 -?-?-?-?-?-?-?-?-?-?-?-?- GP - no cramping or bleeding. +FM. Did a sneak peak - having a girl! 11/01/20 -?-?-?-?-?-?-?-?-?-?-?-?- 23w 5d 175 lb 138/80 Negative -?-?-?-?-?-?-?-?-?-?-?-?- Negative 150 24 -?-?-?-?-?-?-?-?-?-?-?-?- GP - no LOF, VB, dFM, ctx. Denies complaints. Plan home BGTs in place of GCT 11/29/20 -?-?-?-?-?-?-?-?-?-?-?-?- 27w 5d 112/82 Negative -?-?-?-?-?-?-?-?-?-?-?-?- Negative 150 28 -?-?-?-?-?-?-?-?-?-?-?-?- SM- no vb lof go od fm no regular ctx discused and andrew get 1 hr GCT. 12/13/20 -?-?-?-?-?-?-?-?-?-?-?-?- 29w 5d 114/72 -?-?-?-?-?-?-?-?-?-?-?-?- 135 30 -?-?-?-?-?-?-?-?-?-?-?-?- SM- no vb lof go od fm no regular ctx 12/26/20 -?-?-?-?-?-?-?-?-?-?-?-?- 31w 4d 178 lb 2 oz 118/78 Nega tive -?-?-?-?-?-?-?-?-?-?-?-?- Negative 140 32 -?-?-?-?-?-?-?-?-?-?-?-?- JV- no lof, vagi nal bleeding, or dec fm. PTL precautions discussed 01/07/21 -?-?-?-?-?-?-?-?-?-?-?-?- 33w 2d 180 lb 8 oz 110/70 Nega tive -?-?-?-?-?-?-?-?-?-?-?-?- Negative 147 34 -?-?-?-?-?-?-?-?-?-?-?-?- JV- pt had some kidney stone like pain and has blood in urine today. she feels better today. trace leuks. urine sent for cx and encouraged increasing fluids. stop calcium supplement due to h/o stones. 01/24/21 -?-?-?-?-?-?-?-?-?-?-?-?- 35w 5d 184 lb 4 oz 110/60 Trac e -?-?-?-?-?-?-?-?-?-?-?-?- Negative 145 36 Cephalic -?-?-?-?-?-?-?-?-?-?-?-?- SM- no vb lof go od fm no reualr ctx pain resolved. 01/27/21 -?-?-?-?-?-?-?-?-?-?-?-?- 36w 1d 186 lb 110/70 -?-?-?-?-?-?-?-?-?-?-?-?- 140 37 Cephalic 0.5 -?-?-?-?-?-?-?-?-?-?-?-?- SM- co pelvic pr essure, no vb lof good fm no regular ctx gbd collected 02/12/21 -?-?-?-?-?-?-?-?-?-?-?-?- 38w 3d 185 lb 112/86 -?-?-?-?-?-?-?-?-?-?-?-?- 140 39 Cephalic 1 -?-?-?-?-?-?-?-?-?-?-?-?- 60- -2 Sm- discus sed 10% risk of fecal incontinence if recurrent laceration, discussed LGA diagnosis, patient wants exp management is open to considering IOL at 39-40 weeks to reduce size. patient to call with decision. Patient declines primary . 02/21/21 -?-?-?-?-?-?-?-?-?-?-?-?- 39w 5d 189 lb 2 oz 130/84 Nega tive -?-?-?-?-?-?-?-?-?-?-?-?- Negative 140 40 3 -?-?-?-?-?-?-?-?-?--?-?-?- 60 -2 SM- no vb lof dec fm will get NST now no reuglar ctx plan IOL wednesday02/24/21 -?-?-?-?-?-?-?-?-?-?-?-?- 40w 1d 188 lb 127/60 122/87 115/74 137/82 129/76 135/77 124/73 114/59 145/70 112/63 112/53 125/68 103/57 94/54 97/50 128/62 127/58 -?-?-?-?-?-?-?-?-?-?-?-?- -?-?-?-?-?-?-?-?-?-?-?-?- NST FHR Rate Baby A Baseline: 130 Variability:: Moderate Accelerations:: 15 x 15 Decelerations:: None NST Reactive:: Yes FHR Category:: Category I Uterine Activity:: irregular ROS Constitutional Constitutional: Reports systems reviewed and no addt'l complaints, except as documented Eyes Eyes: Denies change in vision ENT HEENT: Reports systems reviewed and no addt'l complaints, except as documented; Denies headache(s) Cardiovascular Cardiovascular: Reports systems reviewed and no addt'l complaints, except as documented; Denies chest pain or dyspnea Respiratory/Chest Respiratory/Chest: Reports systems reviewed and no addt'l complaints, except as documented Gastrointestinal Gastrointestinal: Reports systems reviewed and no addt'l complaints, except as documented; Denies abdominal pain Genitourinary Genitourinary: Reports systems reviewed and no addt'l complaints, except as documented, contractions Details: present (irregular) and movement Details: present; Denies dysuria or genital lesions Musculoskeletal Musculoskeletal: Reports systems reviewed and no addt'l complaints, except as documented Neurologic Neurologic: Reports systems reviewed and no addt'l complaints, except as documented Endocrine Endocrinology: Reports systems reviewed and no addt'l complaints, except as documented Vital Signs Vital Signs Vital Signs: 02/24/21 08:17 02/24/21 08:18 02/24/21 09:23 Temperature 98.2 F Temperature Source Temporal Pulse Rate 69 Blood Pressure 127/60 H BP Systolic 127 BP Diastolic 60 Pulse Ox 98 97 02/24/21 09:24 02/24/21 10:24 02/24/21 10:25 Temperature 99.0 F 97.9 F Temperature Source Temporal Pulse Rate 84 86 Blood Pressure 122/87 H 115/74 BP Systolic 122 115 BP Diastolic 87 74 Pulse Ox 83 97 02/24/21 11:30 02/24/21 11:31 02/24/21 11:35 Temperature 99.3 F H Temperature Source Temporal Pulse Rate 68 Blood Pressure 137/82 H BP Systolic 137 BP Diastolic 82 Pulse Ox 100 99 02/24/21 11:36 02/24/21 11:40 02/24/21 11:41 Temperature Temperature Source Pulse Rate 75 68 Blood Pressure 129/76 H 135/77 H BP Systolic 129 135 BP Diastolic 76 77 Pulse Ox 99 02/24/21 11:45 02/24/21 11:46 02/24/21 11:50 Temperature Temperature Source Pulse Rate 75 70 Blood Pressure 124/73 H BP Systolic 124 BP Diastolic 73 Pulse Ox 98 99 02/24/21 11:51 02/24/21 11:55 02/24/21 11:56 Temperature Temperature Source Pulse Rate 63 76 Blood Pressure 114/59 L 145/70 H BP Systolic 114 145 BP Diastolic 59 70 Pulse Ox 100 01/17/22 12:00 02/24/21 12:01 02/24/21 12:06 Temperature 97.8 F Temperature Source Pulse Rate 60 65 61 Blood Pressure 112/63 112/53 L BP Systolic 112 112 BP Diastolic 63 53 Pulse Ox 100 98 02/24/21 12:27 02/24/21 12:32 02/24/21 12:37 Temperature 98.9 F Temperature Source Temporal Pulse Rate 65 64 62 Blood Pressure 125/68 H BP Systolic 125 BP Diastolic 68 Pulse Ox 100 100 98 02/24/21 12:40 02/24/21 13:25 02/24/21 14:05 Temperature 98.9 F Temperature Source Temporal Pulse Rate 65 71 65 Blood Pressure 103/57 L 94/54 L 97/50 L BP Systolic 103 94 97 BP Diastolic 57 54 50 Pulse Ox 100 02/24/21 14:06 02/24/21 14:10 02/24/21 15:28 Temperature 98.8 F 99.2 F H Temperature Source Temporal Pulse Rate 64 Blood Pressure 128/62 H BP Systolic 128 BP Diastolic 62 Pulse Ox 98 98 02/24/21 17:23 02/24/21 17:24 02/24/21 17:29 Temperature 98.9 F Temperature Source Temporal Pulse Rate 44 L 77 Blood Pressure 127/58 H BP Systolic 127 BP Diastolic 58 Pulse Ox 86 Weight Weight: 188 lb Body Mass Index (BMI) 33.3 Physical Exam Const alert, oriented x3, no apparent distress and healthy appearing HEENT normocephalic and moist oral mucous membranes Head and Scalp: atraumatic Neck full ROM, no lymphadenopathy, supple and thyroid normal General: trachea midline Lymph Lymphatic: no lymphadenopathy noted Chest inspection of chest normal Resp normal respiratory effort Cardio regular rate GI normal to inspection, nondistended, normoactive bowel sounds, soft to palpation and non-tender Inspection: gravid external exam normal Manual OB Exam: estimated gestational size appropriate, presentation cephalic, dilated, effaced and station Extremity normal to inspection General Extremity: Negative for edema Skin no rashes or lesions noted Neuro no focal motor deficits and deep tendon reflexes 2+ bilaterally Motor Exam: strength 5/5 throughout and clonus absent Psych mental status grossly normal Labs Labs Labs: Blood Type A POSITIVE Antibody Screen NEGATIVE Hct 35.1 % (37-47) L Hgb 11.5 g/dL (12.0-15.0) L Obstetrics US Syphilis Total Ab Non-reactive Rubella IgG Antibody Reactive (Nonreactive) Hep Bs Antigen Non-Reactive (Nonreactive) Neisseria gonorrhoeae DNA (COOPER) Negative (Negative) HIV 1&2 Antibody Non-Reactive (Nonreactive) C.trachomatis DNA (PCR) Negative (Negative) Glucose 1 Hr 50 gm 102 mg/dL (70-140) Rhogam given: No Assessment & Plan (1) Macrosomia: COMMENT: counseled regarding increased risk for laceration with larger EFW. discussed IOL at 39-40. patient to decide will call (2) COVID-19 affecting in third trimester: COMMENT: Start aspirin, growth US ordered (3) Supervision of other normal : COMMENT: PRR ALLIE 02/24/20 girl PC: Gabriela Spouse:Abram (4) : QUALIFIERS: Weeks of gestation: 39 weeks Qualified Code(s): Z3A.39 - 39 weeks gestation of COMMENT: Declines ntd, carrier and genetic screen; NL anatomy; GBS NEG (5) Fourth degree perineal laceration during delivery, delivered: COMMENT: Discussed vs. PCD. Desires . Discussed growth at 36w. PLAN: pit IOL epi PRN
--- NOTE | 2021-02-24 17:39 | OP.PCM_ITS ---
Maternal Data Information ALLIE Calculator Estimated Delivery Date Method Current WG Current Estimate 02/23/21 Ultrasound #1 40w 1d Other Estimates 02/06/21 LMP (Uncertain) 42w 4d Vaginal Delivery Operative Information Date of Procedure: 02/24/21 Pre-Operative Diagnosis: IOL Post-Operative Diagnosis: same Surgery / Procedure Performed: Spontaneous Vaginal Delivery Type of Anesthesia: Epidural Special Medications: methergine Estimated Blood Loss: 400 Fluids Replaced: crystalloid Findings Description of Procedure: Patient began pushing and delivered the head in the ASHOK presentation. The head was delivered atraumatically a mild shoulder dystocia lasting 30 seconds and it was treated and remedied with Siva and suprapubic pressure. The anterior and posterior shoulders delivered without complication followed by the rest of the and the infant was placed on the maternal abdomen. Short cord was encountered and during delivery the cord spontaneously avulsed in the middle and was quickly clamped close to the infant's abdomen. The placenta delivered spontaneously immediately following it was noted to be intact with three-vessel cord. The perineum and vagina were inspected and noted to have 3 degree perineal laceration which was repaired in the usual fashion in 3 layers with 2-0 PDS and 3-0 Vicryl Rapide Methergine given for atony.. EBL was 400 cc. Patient and infant tolerated delivery well. Presentation: CHRISTY Amniotic Membrane Rupture Type: Artificial Amniotic Fluid Description: Clear Placental Delivery Description: Spontaneous Placenta Disposition: [facility] Cord Vessel Description: 3 Vessels Cord Entanglement: None Delayed Cord Clamping: Yes Post Vaginal Delivery Medications Given After Delivery: IV Pitocin and IM Methergin Episiotomy Description: None Laceration: Perineal Extension/lac and 3rd degree Complication Complications: None Procedures Urinary/Genital [id number]: [id number] Vaginal Delivery+PP Care([facility])
[2021-02-24] MEDS: Ondansetron 4 MG/2 ML Vial IV (17:59)
[2021-02-24] MEDS: Senna/Docusate Sodium 1 Tablet PO (23:04)
[2021-02-24] MEDS: Ketorolac 10 MG Tablet PO (23:05)
[2021-02-25] MEDS: Acetaminophen 500 MG Tablet 1000 MG PO ×3 (04:31→18:18)
[2021-02-25] MEDS: Benzocaine/Lanolin/Aloe Vera 1 SPRAY EACH TOPICAL (04:31)
[2021-02-25 04:32] VITALS: BP 122/67; PULSE 67; RESP 16; TEMP 36.8
[2021-02-25] MEDS: Ketorolac 10 MG Tablet PO ×2 (08:33→17:20)
[2021-02-25] MEDS: Senna/Docusate Sodium 1 Tablet PO (08:33)
[2021-02-25 09:30] VITALS: BP 111/53; PULSE 70; RESP 16; TEMP 36.4
--- NOTE | 2021-02-25 12:18 | PCM.PN.OB ---
Subjective Subjective Patient doing well without complaints. Tolerating PO. Ambulating and voiding without difficulty. feeding well. Denies chest pain, shortness of breath, calf pain/swelling, fevers, chills, lightheadedness. Objective Data Objective Data Vital Signs: Vital Signs Temp Pulse Resp BP Pulse Ox 97.6 F L 70 16 111/53 L 86 02/25/21 09:30 02/25/21 09:30 02/25/21 09:30 02/25/21 09:30 02/24/21 17:24 Oxygen Delivery Method Room Air Weight: 188 lb Body Mass Index (BMI) 33.3 Intake & Output: Intake and Output for Last 24 Hours 02/23/21 02/24/21 02/25/21 23:59 23:59 23:59 Intake Total 2089.41 / 2089.41 Output Total 1300 / 1300 350 / 350 Balance 789.41 / 789.41 -350 / -350 Lab / Micro Data Result Diagrams: 02/24/21 07:50 ROS Constitutional Constitutional: Reports systems reviewed and no addt'l complaints, except as documented Cardiovascular Cardiovascular: Reports systems reviewed and no addt'l complaints, except as documented Respiratory/Chest Respiratory/Chest: Reports systems reviewed and no addt'l complaints, except as documented Gastrointestinal Gastrointestinal: Reports systems reviewed and no addt'l complaints, except as documented Physical Exam Const alert, oriented x3 and no apparent distress HEENT Head and Scalp: atraumatic Resp normal respiratory effort GI soft to palpation and non-tender Bimanual Exam - Vag & Uterus: uterus non-tender Uterus Palpation: uterus fundus firm (below Umbilicus) Assessment & Plan (1) Third degree laceration of perineum during delivery, : (2) Vaginal delivery: COMMENT: SM 3rd degree laceration mild SD lance suprapubic 10lb1 oz girl Lina PLAN: s/p PPD # 1 1. routine post delivery care 2. breast feeding- support given 3. rh positive 4. rubella immune
--- NOTE | 2021-02-25 12:19 | PCM.DC ---
Discharge Instructions Diet Discharge Diet: No restrictions Activity Discharge Activity: Return to Normal Activity, May Not Drive (while taking narcotic pain medications.) and May Shower May resume sexual activity in: 4-6 weeks Dressing / Incision Call your doctor if your incision/area has: Continuous Slow Oozing, Sudden Increased Bleeding, Increased Pain/ Swelling, Increased Redness and Foul Smelling Discharge Follow Up Care Please Follow Up With: Lois Killian MD When: Call [phone] to make an appointment with your doctor in 6 weeks. If you had elevated blood pressure or 4th degree laceration, you will need to be seen in 2 weeks. Test Results: Test results from this visit will be discussed in further detail at your follow-up appointment, if applicable. Discharge Plan Admission Admit Date/Time: 02/24/21 07:30 Attending Provider: Lois Killian Primary Care Provider: Care Physician,No Primary Discharge Orders/Prescriptions Prescriptions: New oxycodone-acetaminophen [Percocet] 5-325 mg tablet 1 tab PO Q6H PRN (Reason: pain) 7 Days Qty: 20 RF: 0 naproxen 250 MG tablet 250 - 500 mg PO Q8H PRN PRN (Reason: MILD PAIN) Qty: 30 RF: 1 Continued vitamin#30 30 mg iron-10 mg iron-folic acid 1 mg-omg3 capsule 30 mg iron-10 mg iron-1 mg capsule 1 cap PO DAILY RF: 0 ferrous sulfate 325 mg (65 mg iron) Tablet,Delayed Release (Dr/Ec) 325 mg PO DAILY RF: 0 Referrals / Follow Up: Care Physician,No Primary [Primary Care Provider] - Disposition Disposition (needs filled in before D/C Order can be placed): Home, Self Care
[2021-02-25 12:26] VITALS: BP 118/70; PULSE 59; RESP 18; TEMP 36.4
[2021-02-25 17:12] VITALS: BP 110/73; PULSE 61; RESP 16; TEMP 36.3
== END 2021-02-25 18:50 | disposition home or self-care (01) | DRG 768 ==
PROVIDERS: Admitting Provider Obstetrics & Gynecology; Referring Provider Obstetrics & Gynecology; Visit Provider Obstetrics & Gynecology
DX: O36.63X0 Maternal care for excessive fetal growth, third trimester, not applicable or unspecified (principal); Z37.0 Single live birth; O72.1 Other immediate postpartum hemorrhage; O70.20 Third degree perineal laceration during delivery, unspecified; O69.3XX0 Labor and delivery complicated by short cord, not applicable or unspecified; O66.0 Obstructed labor due to shoulder dystocia; Z87.891 Personal history of nicotine dependence; Z3A.40 40 weeks gestation of pregnancy
CPT/HCPCS: 59025; 59050; 85025; 86850; 86900; 86901; 99218; J7120; G0378; J2405; J3490

== ENCOUNTER 2021-03-04 15:00 | Outpatient (CLI) | payer OTHER, SELFPAY | END 2021-03-04 23:59 | disposition short-term general hospital (02) | LOC: LABSPEC 03-06 11:13 | PROVIDERS: Visit Provider Obstetrics & Gynecology | DX: O70.20 Third degree perineal laceration during delivery, unspecified (principal) | CPT/HCPCS: 87070; 87205 ==

== ENCOUNTER 2021-04-25 16:21 | Outpatient (CLI) | payer OTHER, SELFPAY ==
[2021-05-01 20:37] LABS: HPV Reflexed? NOT INDICATED
== END 2021-04-25 23:59 | disposition home or self-care (01) ==
LOC: LABSPEC 16:23
PROVIDERS: Referring Provider Obstetrics & Gynecology; Visit Provider Obstetrics & Gynecology
DX: Z12.4 Encounter for screening for malignant neoplasm of cervix (principal)
CPT/HCPCS: 88175; G0145

== ENCOUNTER → 2022-03-13 | Outpatient (CLI) | payer MEDICAID, SELFPAY ==
[2022-03-13 15:17] LABS: Absolute Neutrophil Count 3.5 X10^3/uL (2.0-7.7); Basophil# 0.06 X10^3/uL; Basophil% 0.9 % (0-1); Eosinophil# 0.17 X10^3/uL; Eosinophils% 2.6 % (0-5); Hematocrit 39.3 % (37-47); Hemoglobin 12.7 g/dL (12.0-15.0); Mean Corp Hgb Conc 32.3 g/dL (32-36); Mean Corpuscular Hgb 29.3 pg (27.0-32.0); Mean Corpuscular Volume 90.6 fL (81-99); Mean Platelet Vol. 10.2 fl (6.2-12.0); Monocyte# 0.52 X10^3/uL; Monocyte% 7.9 % (0-10); NRBC Flagged by Analyzer 0 % (0-5); Neutrophil # 3.51 X10^3/uL (2.7-7.7); Neutrophil % 53.4 % (47-70); Platelet Count 340 K/mm3 (150-450); RBC Distribution Width CV 13.1 % (11.6-14.6); RBC Distribution Width SD 43.3 fl (35.1-43.9); Red Blood Count 4.34 M/mm3 (4.2-5.4); White Blood Count 6.6 K/mm3 (4.4-11.0)
[2022-03-13 15:37] LABS: Vitamin B12 383 pg/mL (211-911); Vitamin D,25 Hydroxy 18.2 ng/mL
[2022-03-13 15:53] LABS: AST(SGOT) 14 U/L (15-37); Alanine Aminotransfer ALT/SGPT 23 U/L (13-56); Albumin, Serum 4.2 g/dL (3.2-5.0); Alkaline Phosphatase 66 U/L (45-117); Anion Gap 7 (5-15); BUN 18 mg/dL (7-18); BUN/Creat Ratio 17.1 RATIO (10-20); Calcium,Total 9.3 mg/dL (8.5-10.1); Chloride 106 mmol/L (98-107); Cholesterol 144 mg/dL (200); Creatinine, Serum 1.05 mg/dL (0.55-1.02); EST Glomerular Filtration Rate 66 mL/min (>60); Est Glom Filt Rate - Afr Amer 80 mL/min (>60); Glucose 93 mg/dL (74-106); High Density Lipoprotein 37 mg/dL; Potassium 3.6 mmol/L (3.5-5.1); Protein, Total 8.2 g/dL (6.4-8.2); Sodium Level 142 mmol/L (136-145); Thyroid Stim Hormone (TSH) 2.97 uIU/mL (0.358-3.74); Triglycerides 113 mg/dL; Very Low Density Lipoprotein 23 mg/dL (5-40)
== END | disposition home or self-care (01) ==
LOC: MFPLAB 12:03
PROVIDERS: PCP Family Medicine; Referring Provider Family Medicine; Visit Provider Family Medicine
DX: R53.83 Other fatigue (principal); E66.9 Obesity, unspecified
CPT/HCPCS: 36415; 80053; 80061; 82306; 82607; 84439; 84443; 85025

== ENCOUNTER → 2022-03-20 | Outpatient (CLI) | payer MEDICAID, SELFPAY ==
--- NOTE | 2022-03-20 10:53 | ECHOCS_ITS ---
Version 2 Reason For Study: Murmur Procedure This was a 2D Doppler, Color Flow transthoracic echocardiogram. Contrast injection was performed. Exam performed in department. Left Ventricle Normal LV size. Left ventricular systolic function is normal. The estimated ejection fraction is 65 %. No regional wall motion abnormalities noted. Right Ventricle Normal RV size. Normal systolic function. Atria Normal left atrium. Normal right atrium. Mitral Valve Normal mitral valve. Tricuspid Valve Normal tricuspid valve. Mild (1+) tricuspid valve insufficiency. Pulmonary artery systolic pressure is 22 mmHg. Aortic Valve Normal aortic valve. Trisinus/trileaflet aortic valve. Pulmonic Valve Normal pulmonic valve. Great Vessels Normal aortic root. The pulmonary artery is normal size. Normal inferior vena cava. Pericardium/Pleural No pericardial effusion. Medication Diluted definity 2.5ml given slow IV push to enhance endocardial definition. MMode/2D Measurements & Calculations LVIDd: 4.6 cm IVSd: 0.86 cm Ao root diam: 2.6 cm LVIDs: 3.1 cm LVPWd: 0.82 cm RVDd: 3.9 cm FS: 32.2 % LAV(MOD-bp): 34.1 ml LVAd ap4: 34.5 cm2 SV(MOD-sp4): 71.0 ml LAV(MOD-bp) Indexed: 17.8 ml/m2 LVLd ap4: 8.5 cm LAV(MOD-sp2): 34.6 ml EDV(MOD-sp4): 114.9 ml LAV(MOD-sp4): 31.6 ml EDV(sp4-el): 118.4 ml LVAs ap4: 19.0 cm2 LVLs ap4: 7.1 cm ESV(MOD-sp4): 43.9 ml ESV(sp4-el): 43.2 ml EF(MOD-sp4): 61.8 % EF(sp4-el): 63.5 % SV(sp4-el): 75.2 ml LA A4 area: 13.7 cm2 LA dimension(2D): 3.6 cm RA A4 area: 13.8 cm2 Time Measurements MV dec time: 0.21 sec Doppler Measurements & Calculations MV E max scott: 96.6 cm/sec Lat Peak E' Scott: 17.2 cm/sec Med Peak E' Scott: 12.6 cm/sec MV A max scott: 59.4 cm/sec E/E' lat: 5.6 E/E' med: 7.7 MV E/A: 1.6 MV dec slope: 453.5 cm/sec2 Ao V2 max: 169.3 cm/sec LV V1 max: 156.6 cm/sec Ao max P.5 mmHg LV V1 max P.8 mmHg Ao V2 mean: 115.1 cm/sec Ao mean P.2 mmHg Ao V2 VTI: 35.2 cm PA V2 max: 108.4 cm/sec PI end-d scott: 73.9 cm/sec TR max scott: 212.4 cm/sec TR max P.1 mmHg ECHO/Echo Complete W/ Contrast Interpretation Summary Normal LV size. Left ventricular systolic function is normal. The estimated ejection fraction is 65 %. Pulmonary artery systolic pressure is 22 mmHg. Structurally normal valves. Contrast injection was performed. Ordering Physician: [place] Gilbert Referring Physician: [place] Gilbert Performed By: Rupinder Caraballo, LORA, RVT
== END | disposition home or self-care (01) ==
PROVIDERS: PCP Family Medicine; Referring Provider Family Medicine; Visit Provider Family Medicine
DX: R01.1 Cardiac murmur, unspecified (principal)
CPT/HCPCS: 93306; Q9957; A4216; C8929

== ENCOUNTER → 2022-06-04 | Outpatient (CLI) | payer MEDICAID, SELFPAY | END | disposition home or self-care (01) | LOC: SL 19:57 | PROVIDERS: PCP Family Medicine; Visit Provider Internal Medicine | DX: G47.33 Obstructive sleep apnea (adult) (pediatric) (principal) | CPT/HCPCS: 95810 ==

== ENCOUNTER → 2022-07-03 | Outpatient (CLI) | payer MEDICAID, SELFPAY ==
[2022-07-03 17:57] LABS: AST(SGOT) 12 U/L (15-37); Alanine Aminotransfer ALT/SGPT 18 U/L (13-56); Albumin, Serum 4.1 g/dL (3.2-5.0); Alkaline Phosphatase 70 U/L (45-117); Anion Gap 8 (5-15); BUN 13 mg/dL (7-18); BUN/Creat Ratio 16.2 RATIO (10-20); Calcium,Total 9.2 mg/dL (8.5-10.1); Chloride 104 mmol/L (98-107); EST Glomerular Filtration Rate 90 mL/min (>60); Est Glom Filt Rate - Afr Amer 109 mL/min (>60); Globulin 4.2 g/dL (2.2-4.2); Glucose 89 mg/dL (74-106); Potassium 3.4 mmol/L (3.5-5.1); Protein, Total 8.3 g/dL (6.4-8.2); Sodium Level 139 mmol/L (136-145)
== END | disposition home or self-care (01) ==
LOC: MFPLAB 13:49
PROVIDERS: PCP Family Medicine; Visit Provider Family Medicine
DX: E55.9 Vitamin D deficiency, unspecified (principal)
CPT/HCPCS: 36415; 80053; 82306

== ENCOUNTER → 2022-12-10 | Outpatient (CLI) | payer MEDICAID, SELFPAY ==
--- NOTE | 2022-12-10 10:29 | RAD_ITS ---
STUDY: X-RAY CHEST REASON FOR EXAM: Female, 27 years old. 4 week history of cough. TECHNIQUE: PA and lateral views of the chest. COMPARISON: None. FINDINGS: The lungs are clear and expanded. There is no demonstrated pleural abnormality. Normal size heart. Normal mediastinum and kalie. Normal visualized pulmonary arteries. Normal visualized aortic arch and descending thoracic aorta. Normal visualized thoracic spine. Normal visualized ribs, clavicles, and shoulders. There is no demonstrated abnormality of the visualized soft tissue structures of the upper abdomen. RAD/Chest PA and Lateral IMPRESSION: Normal x-ray examination of the chest. Electronically Signed: Chan Freed MD at 11:03 EDT ,
== END | disposition home or self-care (01) ==
LOC: MTRAD 10:28
PROVIDERS: PCP Family Medicine; Referring Provider Family Medicine; Visit Provider Family Medicine
DX: J20.9 Acute bronchitis, unspecified (principal)
CPT/HCPCS: 71046

== ENCOUNTER 2023-12-20 18:07 | Emergency (ER) | payer MEDICAID, SELFPAY ==
[2023-12-20] VITALS (7 sets, daily range): BP systolic 111–153; BP diastolic 82–99; PULSE 75–103; RESP 16–18; TEMP 36.9–37.6; O2SAT 98–100; BMI 35.4
[2023-12-20] MEDS: Ibuprofen 600 MG Tablet PO (19:20)
[2023-12-20 19:22] LABS: Mucous, Urine 0 SEEN /hpf (<or=2+); Red Blood Cells-Urine 0 SEEN /hpf (0-5)
[2023-12-20 19:24] LABS: Absolute Neutrophil Count 5.8 X10^3/uL (2.0-7.7); Basophil# 0.04 X10^3/uL; Basophil% 0.6 % (0-1); Eosinophil# 0.02 X10^3/uL; Eosinophils% 0.3 % (0-5); Hematocrit 39.8 % (37-47); Hemoglobin 12.9 g/dL (12.0-15.0); Lymphocyte % 12.5 % (19-41); Mean Corp Hgb Conc 32.4 g/dL (32-36); Mean Corpuscular Hgb 28.5 pg (27.0-32.0); Mean Corpuscular Volume 88.1 fL (81-99); Mean Platelet Vol. 9.5 fl (6.2-12.0); Monocyte# 0.41 X10^3/uL; Monocyte% 5.7 % (0-10); NRBC Flagged by Analyzer 0 % (0-5); Neutrophil # 5.79 X10^3/uL (2.7-7.7); Neutrophil % 80.6 % (47-70); Platelet Count 270 K/mm3 (150-450); RBC Distribution Width CV 13.3 % (11.6-14.6); RBC Distribution Width SD 43.3 fl (35.1-43.9); Red Blood Count 4.52 M/mm3 (4.2-5.4); White Blood Count 7.2 K/mm3 (4.4-11.0)
[2023-12-20 19:37] LABS: Anion Gap 7 (5-15); BUN 11 mg/dL (7-18); BUN/Creat Ratio 12.3 RATIO (10-20); Calcium,Total 9.1 mg/dL (8.5-10.1); Chloride 103 mmol/L (98-107); Creatinine, Serum 0.89 mg/dL (0.55-1.02); EST Glomerular Filtration Rate 79 mL/min (>60); Est Glom Filt Rate - Afr Amer 95 mL/min (>60); Estimated Creatinine Clearance 99.72 ml/min; Glucose 102 mg/dL (74-106); Potassium 3.3 mmol/L (3.5-5.1); Sodium Level 138 mmol/L (136-145)
[2023-12-20 19:46] LABS: Internal QC Validated? YES +Cl - CLEAR BKGD; Pregnancy, Serum, hCG Quali. NEGATIVE Negative
[2023-12-20 19:47] LABS: Color, Urine Yellow (Yellow); Glucose, Dipstick Normal (Normal); Ketone-Dipstick 15 mg/dl (Negative); Leukocyte Esterase-Dipstick 25 /ul (Negative); Nitrite-Dipstick Negative (Negative); Occult Blood-Urine 25 /ul (Negative); Protein-Dipstick Negative (Negative); Urine Bilirubin Dipstick Negative (Negative); Urine Clarity Clear (Clear); Urine Urobilinogen 1 mg/dl (Normal)
[2023-12-20 19:54] LABS: Bacteria RARE /hpf (None Seen); Squamous Epithelial Cells - UA 0-5 SEEN /hpf (5-10); White Blood Cells 0-5 SEEN /hpf (0-5)
[2023-12-20] MEDS: Azithromycin 250 MG Tablet 500 MG PO (21:18)
== END 2023-12-20 21:20 | disposition home or self-care (01) ==
PROVIDERS: Emergency Provider Emergency Medicine; PCP Family Medicine; Visit Provider Emergency Medicine
DX: J18.9 Pneumonia, unspecified organism (principal); Z87.891 Personal history of nicotine dependence
CPT/HCPCS: 71046; 80048; 81001; 84703; 85025; 87631; 99283

== ENCOUNTER → 2024-01-28 | Outpatient (CLI) | payer MEDICAID, SELFPAY ==
[2024-02-10 14:07] LABS: HPV APTIMA, High Risk Negative (Negative)
[2024-02-11 11:38] LABS: HPV Reflexed? YES, CHARGE PATIENT
== END | disposition home or self-care (01) ==
LOC: LABSPEC 11:27
PROVIDERS: PCP Family Medicine; Referring Provider Obstetrics & Gynecology; Visit Provider Obstetrics & Gynecology
DX: Z12.4 Encounter for screening for malignant neoplasm of cervix (principal)
CPT/HCPCS: 87624; 88175; G0145

== ENCOUNTER → 2024-09-22 | Outpatient (CLI) | payer MEDICAID, SELFPAY ==
[2024-09-22 15:29] LABS: Hematocrit 38.2 % (37-47); Hemoglobin 12.6 g/dL (12.0-15.0); Immature Granulocytes Count 0.020 X10^3/uL (0.0-0.0); Mean Corp Hgb Conc 33.0 g/dL (32-36); Mean Corpuscular Volume 87.6 fL (81-99); Mean Platelet Vol. 10.0 fl (6.2-12.0); NRBC Flagged by Analyzer 0 % (0-5); Platelet Count 331 K/mm3 (150-450); RBC Distribution Width CV 13.2 % (11.6-14.6); RBC Distribution Width SD 42.5 fl (35.1-43.9); Red Blood Count 4.36 M/mm3 (4.2-5.4); White Blood Count 6.9 K/mm3 (4.4-11.0)
[2024-09-22 15:59] LABS: AST(SGOT) 20 U/L (<=31); Alanine Aminotransfer ALT/SGPT 27 U/L (<=34); Albumin, Serum 4.4 g/dL (3.5-5.0); Alkaline Phosphatase 63 U/L (35-104); Anion Gap 10 (5-15); BUN 13 mg/dL (4-19); BUN/Creat Ratio 16.9 RATIO (10-20); Calcium,Total 9.6 mg/dL (7.6-11.0); Carbon Dioxide 25.4 mmol/L (21.0-32.0); Chloride 103 mmol/L (98-108); Globulin 3.0 g/dL (2.2-4.2); Glucose 92 mg/dL (70-99); Potassium 4.0 mmol/L (3.3-5.1)
--- OUTSIDE RECORDS SUMMARY | 2024-09-22 18:56 | XMS RPT_ITS | CCD ---
Author Organization [facility] CliniSyut Care Team Providers Care Payroll Examiner Name Role Phone ADEBAYO WILKES Unavailable Unavailable MOSES WILDE Unavailable Unavailable MOSES WILDE Unavailable Unavailable Unavailable Primary Care Provider Dr. Ailyn Tate Primary Care Provider Dr. Vimal Kumar Attending Provider Dr. Ailyn Brasher Primary Care Provider Dr. Vimal Kumar Attending Provider Dr. Ailyn Brasher Referring Provider Dr. Emerson Kimball Attending Provider [phone] Care Physician, No Primary Referring Provider Un available Dr. Gudelia Gilbert Attending Provider Dr. Ailyn Brasher Primary Care Provider Gudelia Gilbert Attending UnavailAilyn Levy Primary Care Unavailable Ailyn Brasher Referring Unavailable Gudelia Gilbert Attending UnavailGudelia Moon Referring UnavailAilyn Levy Primary Care Unavailable Ailyn Brasher Primary Care Unavailable Romeo Richardson Attending Unavailable Unavailable Primary Care Provider UnavailAilyn Levy MD Primary Care Provider AILYN BRASHER Primary Care Unavailable SARAI MAY Attending Unavailable MADHURI CHRISTOPHER Attending Unavailable AILYN BRASHER Primary Care Unavailable ARIEL SOLO Attending Unavailable Allergies Allergy Classification Reported Allergen(s) Allergy Type Date of Onset Reaction(s) Facility (2 sources) OTHER; Translations: [OTHER] Propensity to adverse reactions (disorder) 9 [facility] Repository (5 sources) Seasonal allergy; Translations: [SEASONAL ALLERGIES] Allergy to substance [address] [facility] (1 source) oxyCODONE Drug Allergy 4 [facility] Repository Medications Current Medications Medication Drug Class(es) Dates Sig (Normalized) Sig (Original) acetaminophen 250 mg / aspirin 250 mg / caffeine 65 mg oral tablet (1 source) Platelet Aggregation Inhibitor, Nonsteroidal Anti-inflammatory Drug, Central Nervous System Stimulant, Methylxanthine Start: 09-01-2024 take 2 tablets by mouth every six hours as needed Aspirin-Acetamino phen-Caffeine (EXCEDRIN MIGRAINE) 250-250-65 mg per tablet Take 2 tablets by mouth every 6 hours as needed (Headache). Do not exceed 8 tablets per 24 hours 16 tablet 09/01/2024 Active amoxicillin 500 mg oral capsule (2 sources) Penicillin-class Antibacterial Start: 07-06-2024 End: 07-16-2024 take 1 capsule by mouth twice daily amoxicillin (AMOXIL) 500 mg capsule Indications: Strep throat Take 1 capsule by mouth two times a day for 10 days. 20 capsule 07/06/2024 07/16/2024 Active Start: 01-30-2022 End: 02-06-2022 take 1 tablet by mouth twice daily amoxicillin (AMOXIL) 875 mg tablet Take 1 tablet by mouth twice daily for 7 days. 14 tablet 0 01/30/2022 02/06/2022 Active Comment on above: Take 1 tablet by iker twice daily for 7 days. baclofen 5 mg oral tablet (1 source) gamma-Aminobutyric Acid-ergic Agonist Start: 08-19-19 take 1 tablet by mouth three times daily baclofen 5 mg tablet Take 5 mg by mouth three times a day. 08/18/2024 Active lidocaine hydrochloride 20 mg/ml mucous membrane topical solution (4 sources) Antiarrhythmic, Amide Local Anesthetic Start: 05-26-19 19 lidocaine viscous (LIDOCAINE VISCOUS) 2 % solution Indications: Sore throat Gargle and spit 10-15mLs every 3-4 hours as need for throat discomfort. 120 mL 05/25/2018 Active Comment on above: Gargle and spit 10-1 5mLs every 3-4 hours as need for throat discomfort. metoclopramide 5 mg oral tablet (1 source) Dopamine-2 Receptor Antagonist Start: 09-02-19 End: 09-09-19 take 1 tablet by mouth every six hours as needed metoclopramide HCl (REGLAN) 5 mg tablet Take 1 tablet by mouth every 6 hours as needed for up to 7 days. 20 tablet 09/01/2024 09/08/2024 Active naproxen 250 mg oral tablet (6 sources) Nonsteroidal Anti-inflammatory Drug Start: 08-19-19 take 1 tablet by mouth every eight hours as needed naproxen (NAPROSYN) 250 mg tablet Take 250 mg by mouth three times a day as needed. 08/18/2024 Active Start: 02-25-2021 End: 03-04-2021 take 250-500 mg by mouth every eight hours as needed Naproxen Discontinued 250 - 500 MG PO EVERY 8 HOURS NEEDED February 25, 2021 12:00am March 04, 2021 1:31pm vitamin#30 30 mg iron-10 mg iron-folic acid 1 mg-omg3 capsule (5 sources) Start: 08-10-2018 take 1 capsule by mouth once daily vitamin#30 30 mg iron-10 mg iron-folic acid 1 mg-omg3 capsule Active 1 CAP PO DAILY August 10, 2018 12:00am Start: 08-10-2018 take 1 capsule by mo ut once daily vitamin#30 30 mg iron-10 mg iron-folic acid 1 mg-omg3 capsule Active 1 CAP PO DAILY August 09, 2018 11:00pm Completed/Discontinued Medications Medication Drug Class(es) Dates Sig (Normalized) Sig (Original) acetaminophen 325 mg / oxyCODONE hydrochloride 5 mg oral tablet (10 sources) Opioid Agonist Start: 02-25-2021 End: 03-04-2021 take 1 tablet by mouth every six hours Oxycodone-Acetamino phen (Percocet) 5-325 mg tablet Discontinued 1 TABLET PO EVERY 6 HOURS 27 08February 25, 2021 March 04, 2021 1:31pm Start: 03-14-2019 End: 03-21-2019 take 1 tablet by mouth every six hours as needed Oxycodone-Acetaminophen Discontinued 1 - 2 TABLET PO EVERY 6 HOURS NEEDED 15 March 14, 2019 March 21, 2019 12:08am amoxicillin 875 mg / clavulanate 125 mg oral tablet (5 sources) Penicillin-class Antibacterial Start: 01-11-2019 End: 01-19-2019 take 1 tablet by mouth every twelve hours Amoxicillin-Pot Clavulanate Discontinued 1 TABLET PO Q12H 14 January 11, 2019 12:00am January 19, 2019 12:08am dicloxacillin 500 mg oral capsule (5 sources) Penicillin-class Antibacterial Start: 10-12-2019 End: 10-26-2019 take 500 mg by mouth every six hours Dicloxacillin Discontinued 500 MG PO EVERY 6 HOURS 56 14 October 11, 2019 11:00pm October 25, 2019 11:02pm docusate sodium 100 mg oral capsule (5 sources) Start: 03-14-2019 End: 04-26-2019 take 100 mg by mouth twice daily Docusate Sodium Discontinued 100 MG PO TWICE A DAY March 14, 2019 12:00am April 26, 2019 9:48am ferrous sulfate 325 mg delayed release oral tablet (5 sources) Start: 02-24-2021 End: 03-04-2021 take 325 mg by mouth once daily Ferrous Sulfate Discontinued 325 MG PO DAILY February 24, 2021 12:00am March 04, 2021 1:31pm fluconazole 150 mg oral tablet (10 sources) Azole Antifungal Start: 03-02-2021 End: 04-25-2021 take 1 tablet by mouth once daily Fluconazole (Diflucan) 150 mg tablet Discontinued 150 MG PO DAILY 1 March 02, 2021 12:00am April 25, 2021 2:41pm Start: 05-29-2019 End: 07-02-2020 take 1 tablet by mouth once Fluconazole (Diflucan) 150 mg tablet Discontinued 150 MG PO ONCE May 28, 2019 11:00pm July 02, 2020 12:33pm ibuprofen 600 mg oral tablet (10 sources) Nonsteroidal Anti-inflammatory Drug Start: 03-14-2019 End: 04-26-2019 take 600 mg by mouth every six hours as needed Ibuprofen Discontinued 600 MG PO EVERY 6 HOURS NEEDED March 14, 2019 12:00am April 26, 2019 9:48am Start: 01-14-2017 End: 01-25-2017 take 600 mg by mouth every six hours Ibuprofen Discontinued 600 MG PO EVERY 6 HOURS January 14, 2017 12:00am January 25, 2017 9:54am 2 ml ketorolac tromethamine 30 mg/ml injection (2 sources) Nonsteroidal Anti-inflammatory Drug, Cyclooxygenase Inhibitor Start: 09-01-2024 End: 09-01-2024 keTORolac 60 mg injection (Toradol) Start: 09-01-2024 End: 09-01-2024 60 mg, INTRAMUSCULAR, ONCE, 1 dose, On Wed09/01/24 at 1630, Ketorolac (Toradol) is indicated for the short-term (up to 5 days) management of moderately severe acute pain. Continuation of ketorolac (Toradol) beyond 5 days increases the risk of developing serious adverse events. Please verify the duration of therapy for ketorolac (Toradol). magnesium citrate 58.2 mg/ml oral solution (10 sources) Start: 08-06-2015 End: 04-26-2019 take 1 mL by mouth every eight hours Magnesium Citrate Discontinued 300 ML PO EVERY 8 HOURS March 11, 2019 9:23am April 26, 2019 9:48am metroNIDAZOLE 500 mg oral tablet (20 sources) Nitroimidazole Antimicrobial Start: 03-18-2021 End: 03-25-2021 take 500 mg by mouth twice daily Metronidazole Discontinued 500 MG PO TWICE A DAY 14 7 March 18, 2021 9:03am March 25, 2021 12:03am Start: 03-06-2021 End: 03-13-2021 take 500 mg by mouth twice daily Metronidazole Discontinued 500 MG PO TWICE A DAY 14 7 March 06, 2021 12:00am March 13, 2021 12:03am Start: 10-12-2019 End: 10-12-2019 take 1 tablet by mouth twice daily Metronidazole (Flagyl) 500 mg tablet Discontinued 500 MG PO TWICE A DAY 14 7 October 11, 2019 11:00pm October 12, 2019 2:56pm Start: 05-29-2019 End: 06-05-2019 take 1 tablet by mouth twice daily Metronidazole (Flagyl) 500 mg tablet Discontinued 500 MG PO TWICE A DAY 14 7 May 28, 2019 11:00pm June 04, 2019 11:02pm Start: 05-12-2019 End: 05-19-2019 take 1 tablet by mouth twice daily Metronidazole (Flagyl) 500 mg tablet Discontinued 500 MG PO TWICE A DAY 14 7 May 11, 2019 11:00pm May 18, 2019 11:02pm miSOPROStol 0.2 mg oral tablet (5 sources) Prostaglandin E1 Analog Start: 01-14-2017 End: 01-25-2017 take 1 tablet by mouth at bedtime Misoprostol (Cytotec) 200 mcg tablet Discontinued 800 MCG PO after meals and at bedtime January 14, 2017 12:00am January 25, 2017 9:54am norethindrone 0.35 mg oral tablet (5 sources) Start: 07-28-2019 End: 07-02-2020 take 1 tablet by mouth once daily Norethindrone (Contraceptive) (Ortho Micronor) 0.35 mg tablet Discontinued 0.35 MG PO DAILY July 27, 2019 11:00pm July 02, 2020 12:33pm Problems Active Problems Problem Classification Problem Date Documented Date Episodic/Chronic Calculus of urinary tract (5 sources) Kidney stone; Translations: [Calculus of kidney] 11-29-2020 Episodic Fever of unknown origin (1 source) Fever, unspecified; Translations: [Fever, unspecified] Onset: 01-16-2024 Episodic Headache; including migraine (2 sources) Migraine without aura, not refractory ; Translations: [Migraine without aura, not intractable, without status migrainosus] Onset: 09-01-2024 09-01-2024 Chronic Hemorrhage during ; abruptio placenta; placenta previa (5 sources) Threatened miscarriage; Translations: [Threatened ] 01-25-2017 Episodic OB-related trauma to perineum and vulva (10 sources) Fourth degree perineal laceration; Translations: [Fourth degree perineal laceration during delivery] 02-25-2021 Episodic Other complications of (5 sources) Missed miscarriage; Translations: [Missed ] 01-25-2017 Episodic Other complications of (5 sources) Disease caused by 2019-nCoV; Translations: [Other viral diseases complicating , third trimester] 02-25-2021 Episodic Other complications of (5 sources) Reduced movement; Translations: [Decreased movements, third trimester, not applicable or unspecified] 02-25-2021 Episodic Other complications of (5 sources) RhD negative; Translations: [Other specified related conditions, unspecified trimester] 02-24-2021 Episodic Other ear and sense organ disorders (1 source) Otalgia, left ear; Translations: [Otalgia, left ear] Onset: 01-19-2018 Episodic Other female genital disorders (5 sources) Pruritus of vagina; Translations: [Other specified noninflammatory disorders of vagina] 03-04-2021 Episodic Other lower respiratory disease (3 sources) Snoring; Translations: [Snoring] 05-15-2022 Episodic Other conditions (5 sources) Exceptionally large at ; Translations: [Exceptionally large baby] 02-25-2021 Episodic Other and delivery including normal (15 sources) Vaginal delivery; Translations: [Encounter for full-term uncomplicated delivery] 02-25-2021 Episodic Other screening for suspected conditions (not mental disorders or infectious disease) (1 source) Encounter for screening for malignant neoplasm of cervix; Translations: [Encounter for screening for malignant neoplasm of cervix] Onset: 02-24-2024 Episodic Other upper respiratory infections (8 sources) Pharyngitis; Translations: [Acute pharyngitis, unspecified] Onset: 07-03-2024 Episodic Otitis media and related conditions (1 source) Acute left otitis media; Translations: [Otitis media, unspecified, left ear] Episodic Residual codes; unclassified (2 sources) Obstructive sleep apnea (adult) (pediatric); Translations: [Obstructive sleep apnea (adult)(pediatric)] 04-17-2022 Chronic Unclassified (1 source) Unknown / UNK(Unknown) Onset: 01-19-2018 Past or Other Problems Problem Classification Problem Date Documented Da te Episodic/Chronic Deficiency and other anemia (4 sources) Anemia; Translations: [Anemia, unspecified] Onset: 08-26-2018 08-26-2018 Episodic Other skin disorders (4 sources) Ingrowing nail; Translations: [Ingrowing nail] Onset: 01-02-2009 01-02-2009 Episodic Skin and subcutaneous tissue infections (8 sources) Cellulitis and abscess of toe; Translations: [Cellulitis of unspecified toe] Onset: 02-07-2008 02-07-2008 Episodic Unclassified (1 source) Otalgia, left ear Onset: 01-19-2018 Results Test Name Value Interpretation Reference Range Facility [facility] 09-01-2024 CNOV Office Visit ([facility]) -- SHERRI ROSEN ([id number]) 1995 F Date Time Provider Department 09/01/24 4:00 PM SARAI MAY During your visit today, we recorded the following information about you: Temperature Pulse Respiration Blood pressure 99.2 degrees 77/minute 20/minute 123/85 Weight Last Period 90 kg 08/21/24 Sarai May PA 09/01/2024 4:36 PM Signed [facility] Subjective Sherri Rosen is a 29 year old female. Patient presents with: Migraine: States she has had them for 4 months on and off, has seen PCP and had no testing done, placed on muscle relaxer's, and naproxen, same has had no relief, today @ 7:30 and having them weekly, states Behind R eye usually HPI Migraine: - Severe migraine, primarily right-sided, with onset this morning. - Chronic migraines occurring approximately once a week for the past 4 months. - Current treatment with muscle relaxers and naproxen, prescribed two weeks ago, is ineffective. - Prfk-ypb-[id number] medications, including Excedrin, Tylenol, and ibuprofen, provide no relief. - Benadryl used at night but causes excessive sedation. - Associated symptoms today include nausea and blurred vision, which have since resolved. 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 - Recent menstrual period ended last Wednesday; denies concern for . - Reports anxiety about upcoming travel due to potential for prolonged migraine episodes. Review of Systems Head: (+) right-sided headache Eyes: (+) right eye pain, (-) blurred vision Neck: (+) neck pain Gastrointestinal: (+) nausea, (-) vomiting Psychiatric: (+) anxiety Objective BP 123/85 Pulse 77 Temp 37.3 ?C (99.2 ?F) Resp 20 Wt 90 kg (198 lb 6.6 oz) LMP 08/21/2024 SpO2 100% BMI 35.15 kg/m? Physical Exam Vitals and nursing note reviewed. Constitutional: General: She is not in acute distress. Appearance: Normal appearance. She is not toxic-appearing. HENT: Mouth/Throat: Mouth: Mucous membranes are moist. Eyes: General: Vision grossly intact. Extraocular Movements: Extraocular movements intact. Conjunctiva/sclera: Conjunctivae normal. Pupils: Pupils are equal, round, and reactive to light. Cardiovascular: Rate and Rhythm: Normal rate and regular rhythm. Pulmonary: Effort: Pulmonary effort is normal. Breath sounds: Normal breath sounds. Skin: General: Skin is warm and dry. Neurological: Mental Status: She is alert. Cranial Nerves: Cranial nerves 2-12 are intact. Sensory: Sensation is intact. Motor: Motor function is intact. Coordination: Coordination is intact. Gait: Gait is intact. { 1. Migraine without aura and without status migrainosus, not intractable (G43.009) - Chronic migraines occurring approximately once per week; current episode refractory to naproxen, muscle relaxants, Excedrin, Tylenol, and ibuprofen. - Acute episode today - Administer Toradol 60 mg IM in clinic. Denies concern . LMP last week - Prescribe Reglan for nausea. - Advised to avoid additional NSAIDs for the rest of the day; may use Tylenol if needed. - May use Benadryl at night for symptom relief. - May use Excedrin Migraine as needed, not to exceed recommended daily dose. - Advised to maintain adequate hydration. - Instructed to go to the emergency room if symptoms become severe or unmanageable. - Advised to follow up with primary care on Wednesday to discuss initiation of abortive and/or preventative migraine therapy. - Referral to primary care for ongoing management. and Recording using milog software for draft documentation of the visit was discussed with the patient/authorized telephone service representative; all questions welcomed and answered. Patient/authorized telephone service representative agreed to proceed Diagnosis and treatment plan were discussed and questions were answered to the patient's satisfaction. Pt acknowledged understanding of concepts and follow up plan. Specific signs and symptoms that would indicate the need for higher level of care were discussed in detail warranting prompt ER evaluation. Differential Diagnoses - Migraine is more likely for the following reason(s): suggested by HANDP - Acute intracranial hemorrhage is less likely for the following reason(s): Duration of symptoms, chronic, no neurodeficit, HANDP not suggestive Disposition The patient was discharged. Procedures Allergies As of Date: 09/01/2024 Noted Allergy Reaction SEASONAL ALLERGIES 11/12/2008 5 - Intolerance Date Reviewed: 09/01/2024 Reviewed by: Coby Puga LPN - Fully Assessed Reason for Visit: Migraine [4107] Cmt: States she has had them for 4 months on and off, has seen PCP and had no testing done, placed on muscle relaxer's, and naproxen, same has had no relief, today @ 7:30 and having them weekly, states Behind R eye usually Pr (more content not included)... Normal [facility] CNOVon 07-06-2024 CNOV Office Visit ([facility] ) -- SHERRI ROSEN Marina ([id number]) 1995 F Date Time Provider Department 07/06/24 8:15 AM MADHURI CHRISTOPHER [facility] During your visit today, we recorded the following information about you: Temperature Pulse Respiration Blood pressure 98.5 degrees 93/minute 18/minute 127/88 Weight 90.3 kg Madhuri Christopher APRN.PRICER 07/06/2024 8:31 AM Signed [facility] Subjective HPI HPI Sherri Rosen is a 29 year old female who presents today for CC of st, h/a, sinus congestion. This started 5 days ago. Has tried otc medication for relief. Symptoms are worsened by nothing. Risk factors daughter pos for strep last week. Patient tested negative on 07/03 for strep. Denies possibility of being . nonsmoker .Patient presents with: Sore Throat: MENDEZ, sinus congestion x5 days, 07/03 for same PAST MEDICAL HISTORY Diagnosis Date Allergic rhinitis, cause unspecified Seizure (HCC) febrile seizure x 1 age 2 , no further seizures. PAST SURGICAL HISTORY Procedure Laterality Date TONSILLECTOMY PRIMARY/SECONDARY Tonsillectomy ALLERGIES Seasonal Allergies MEDICATIONS amoxicillin (AMOXIL) 500 mg capsule Take 1 capsule by mouth two times a day for 10 days. lidocaine viscous (LIDOCAINE VISCOUS) 2 % solution Gargle and spit 10-15mLs every 3-4 hours as need for throat discomfort. (Patient not taking: Reported on 01/30/2022) FAMILY HISTORY Problem Relation Age of Onset Hypertension Maternal Grandmother other (skin cancer) Maternal Grandmother bc AND sc Cancer Paternal Grandmother Stroke Paternal Grandmother Social History Tobacco Use Smoking status: Never Smokeless tobacco: Never Substance Use Topics Alcohol use: No Drug use: No Review of Systems Constitutional: Negative for chills, fatigue and fever. HENT: Positive for rhinorrhea and sore throat. Negative for ear discharge, ear pain, sinus pressure and sinus pain. Eyes: Negative for discharge and redness. Respiratory: Negative for cough, shortness of breath and wheezing. Cardiovascular: Negative for chest pain. Skin: Negative for rash. Neurological: Positive for headaches. Objective BP 127/88 Pulse 93 Temp 36.9 ?C (98.5 ?F) Resp 18 Wt 90.3 kg (199 lb 1.2 oz) LMP 01/20/2018 SpO2 100% BMI 35.26 kg/m? Physical Exam Constitutional: General: She is not in acute distress. Appearance: She is not toxic-appearing or diaphoretic. HENT: Head: Normocephalic and atraumatic. Right Ear: Hearing, tympanic membrane, ear canal and external ear normal. Left Ear: Hearing, tympanic membrane, ear canal and external ear normal. Nose: Nose normal. Mouth/Throat: Lips: [place]. Mouth: Mucous membranes are moist. Pharynx: Uvula midline. Posterior oropharyngeal erythema (uvulitis noted.) present. Eyes: General: Lids are normal. No scleral icterus. Right eye: No discharge. Left eye: No discharge. Conjunctiva/sclera: Conjunctivae normal. Pupils: Pupils are equal, round, and reactive to light. Neck: Trachea: Trachea normal. Cardiovascular: Rate and Rhythm: Normal rate and regular rhythm. Heart sounds: Normal heart sounds. Pulmonary: Effort: Pulmonary effort is normal. Breath sounds: Normal breath sounds. Musculoskeletal: Cervical back: Normal range of motion and neck supple. Lymphadenopathy: Cervical: Cervical adenopathy present. Right cervical: Superficial cervical adenopathy present. Left cervical: Superficial cervical adenopathy present. Skin: Findings: No rash. Neurological: Mental Status: She is alert and oriented to person, place, and time. {ASSESSMENT/PLAN: 1. Strep throat - ICD9: 034.0, ICD10: J02.0 (primary diagnosis) - suspect strep - Group A strep molecular testing positive - antibiotic as written - Discussed supportive care treatment with fluids, rest and analgesia. - Contagious dz precautions discussed- including considered contagious until on antibiotics for 24 hours - The patient should follow up in 3-5 days if symptoms persist or worsen - AMOXICILLIN 500 MG CAPSULE 2. Sore throat - ICD9: 462, ICD10: J02.9 Positive, strep - STREP A MOLECULAR (POC) Madhuri Christopher APRN.PRICER History and Record Review External record(s) reviewed: prior outpatient record. Differential Diagnoses - strep is more likely for the following reason(s): consistent with laboratory studies Disposition The patient was discharged. Procedures Allergies As of Date: 07/06/2024 Noted Allergy Reaction SEASONAL ALLERGIES 11/12/2008 5 - Intolerance Date Reviewed: 07/06/2024 Reviewed by: Tamica Kerr MA - Fully Assessed Reason for Visit: Sore Throat [200] Cmt: MENDEZ, sinus congestion x5 days, 07/03 for same Primary Visit Diagnosis:Strep throat [J02.0] Other Visit Diagnosis:Sore throat [J02.9] Order(s):STREP A MOLECULAR (POC) [[id number]] Order #: [id number]. #:[id number] (more content not included)... Normal [facility] STREP A MOLECULAR (POC)on Interpretation and review of laboratory results Abnormal [facility] Procedural Control Valid [facility] Strep A (POCT) Positive Abnormal Negative [facility] CNOVon 07-03-2024 CNOV Office Visit ([facility] ) -- SHERRI ROSEN ([id number]) 1995 F Date Time Provider Department 07/03/24 12:00 PM ARIEL SOLO [facility] During your visit today, we recorded the following information about you: Temperature Pulse Respiration Blood pressure 99.1 degrees 76/minute 18/minute 128/82 Weight 90.3 kg Ariel SoloZEUS.PRICER 07/03/2024 12:19 PM Signed [facility] Subjective Sherri Rosen is a 29 year old female. Patient presents with: Sore Throat: ST, MENDEZ x 1 day-strep exposure Sore Throat Fever, Headache, and Sore Throat: - Low-grade fever of 99.5?F, onset last night. - Severe headache. - Sore throat described as feeling like a big lump. - Took ibuprofen with some relief. - Recent exposure to daughter with similar symptoms; shared a spoon on Wednesday. - No other family members with symptoms. Constitutional: (+) fever Head: (+) headache Ears/Nose/Mouth/Throat: (+) sore throat, (+) globus Objective BP 128/82 Pulse 76 Temp 37.3 ?C (99.1 ?F) (Tympanic) Resp 18 Wt 90.3 kg (199 lb 1.2 oz) LMP 01/20/2018 SpO2 98% BMI 35.26 kg/m? PAST MEDICAL HISTORY Diagnosis Date Allergic rhinitis, cause unspecified Seizure (HCC) febrile seizure x 1 age 2 , no further seizures. PAST SURGICAL HISTORY Procedure Laterality Date TONSILLECTOMY PRIMARY/SECONDARY Tonsillectomy ALLERGIES Seasonal Allergies MEDICATIONS lidocaine viscous (LIDOCAINE VISCOUS) 2 % solution Gargle and spit 10-15mLs every 3-4 hours as need for throat discomfort. (Patient not taking: Reported on 01/30/2022) FAMILY HISTORY Problem Relation Age of Onset Hypertension Maternal Grandmother other (skin cancer) Maternal Grandmother bc AND sc Cancer Paternal Grandmother Stroke Paternal Grandmother Social History Tobacco Use Smoking status: Never Smokeless tobacco: Never Substance Use Topics Alcohol use: No Drug use: No Physical Exam Vitals and nursing note reviewed. Constitutional: Appearance: Normal appearance. HENT: Mouth/Throat: Mouth: Mucous membranes are moist. Pharynx: Oropharynx is clear. Uvula midline. Postnasal drip present. No posterior oropharyngeal erythema. Tonsils: No tonsillar exudate or tonsillar abscesses. Eyes: Pupils: Pupils are equal, round, and reactive to light. Cardiovascular: Rate and Rhythm: Normal rate and regular rhythm. Pulses: Normal pulses. Heart sounds: Normal heart sounds. Pulmonary: Effort: Pulmonary effort is normal. Breath sounds: Normal breath sounds. Abdominal: General: Abdomen is flat. Lymphadenopathy: Cervical: No cervical adenopathy. Neurological: Mental Status: She is alert. - Onset of symptoms following exposure to daughter's spoon; low-grade fever of 99.5?F, headache, and sensation of a lump in the throat. - Awaiting results of strep PCR test. - Advised use of ibuprofen for symptomatic relief. 1. Sore throat (J02.9) 2. Viral Pharyngitis { and Recording using milog software for draft documentation of the visit was discussed with the patient/authorized telephone service representative; all questions welcomed and answered. Patient/authorized telephone service representative agreed to proceed History and Record Review External record(s) reviewed: prior outpatient record. Findings from review of outpatient records: Previous medical history Differential Diagnoses - Viral pharyngitis is more likely for the following reason(s): suggested by HANDP and consistent with laboratory studies - Strep is less likely for the following reason(s): HANDP not suggestive and laboratory studies not suggestive - OPERATIONS SUPPORT COORDINATOR is less likely for the following reason(s): HANDP not suggestive Disposition The patient was discharged. OTC Medications were advised: Tylenol and Ibuprofen Allergies As of Date: 07/03/2024 Noted Allergy Reaction SEASONAL ALLERGIES 11/12/2008 5 - Intolerance Date Reviewed: 07/03/2024 Reviewed by: Abeba Lau LPN - Fully Assessed Reason for Visit: Sore Throat [200] Cmt: ST, MENDEZ x 1 day-strep exposure Primary Visit Diagnosis:Sore throat [J02.9] Other Visit Diagnosis:Viral pharyngitis [J02.9] Order(s):STREP A MOLECULAR (POC) [0849873] Order #: [id number]. #:[id number] Prescriptions as of 07/03/2024 - lidocaine viscous (LIDOCAINE VISCOUS) 2 % solution Gargle and spit 10-15mLs every 3-4 hours as need for throat discomfort. Problem List As Of Date 07/03/2024 Noted Resolved CELLULITIS, TOE NOS [L03.039, L02.619] 02/07/2008 Onychia and Paronychia of Toe [L03.039] 11/12/2008 Ingrowing Nail [L60.0] 01/02/2009 Anemia [D64.9] 08/26/2018 Encounter Status:Closed by ARIEL SOLO on 07/03/24 Normal [facility] STREP A MOLECULAR (POC)on Procedural Control Valid [facility] Strep A (POCT) Negative Negative [facility] PAP I-G w/rfx hrHPV-Aptimaon 02-10-2024 HPV APTIMA, HR Negative Normal Negative [facility] Comment on above: Order Comment: Speci men Comment: Source.............Cervix Specimen Comment: No. of containers..01 ThinPrep Vial Result Comment: This nucleic acid amplification test detects fourteen high- risk HPV types (16,18,31,33,35,39,45,51,52,56,58,59,66,68) without differentiation. Performed By: #### L 7400.0353 #### [facility] [address] [place], [address] Associate Professor Of Radiology Office Visit Reporton 2024 Associate Professor Of Radiology Office Visit Report [facility] [address], [address] [place] [address] OFFICE VISIT Date of Service: 01/28/24 MR#: [id number] Acct: [id number] Name: SHERRI ROSEN Rep #: [id number] : 1995 Provider: Dr. 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 Is patient in pain?: No Allergies oxycodone Allergy (Intermediate, Verified 01/28/24 09:03) Vomiting Medications ???Medication ???Instructions ???Recorded ???Confirmed ???Type cholecalciferol (vitamin D3) 50 50 mcg PO QDAY 01/28/24 01/28/24 History mcg (2,000 unit) capsule vitamin B complex 1 tab PO QDAY 01/28/24 01/28/24 History Post menopausal: No Patient : No : No [facility] Medical History Primary snoring macrosomia hemorrhage History of cardiac murmur Family history of heart murmur Surgical History S/P tonsillectomy and adenoidectomy Family History Father Heart disease Grandmother No problems noted. Social History (Updated 01/28/24 @ 09:12 by Nita Frost) adopted: No household members: spouse and children housing: house number of children: 2 current occupational status: employed current occupation: [employer] Smoking Status: Former smoker second hand exposure: No alcohol intake: never substance use type: does not use what type of physical activity do you participate in: none seatbelt use: always do you feel safe at home: Yes additional social history: Abram Patient works at [employer] History 2 Elective abortions Hx Para 2 Spontaneous abortions Hx # Term Pregnancies Ectopic pregnancies Hx # Pregnancies Multiple births # of living children 2 Past Pregnancies Del. Date Name GA/Weeks Outcome Route Bth Weight Gen Labor Lgth Anesthesia Del Locatn Provider FOB 03/12/19 Snow 40 live - full term 8lbs 11oz Female epidural [facility] SUNNI Abram 02/25/21 Lina 40 live - full term Female [facility] Alden nthony Delivery Date: 03/12/19 Last Updated by: rEna Smith 4 degree laceration Delivery Date: 02/25/21 Last Updated by: Beatriz Wilkins Shoulder dystocia third degree laceration, IOL HPI Encounter for routine gynecological examination Details: SHERRI ROSEN is a 28 year old who presents for annual exam. Last PAP: 04/2021 History of abnormal PAP: no Last mammogram: n/a History of abnormal mammogram: n/a Colon cancer screening: n/a Other preventative health care screenings: followed by pcp Female Reproductive History Cycle Length: 21-35 Bleeding Duration: 5 Questions: metorrhagia: No, sexually active: Yes, dyspareunia: No and PCB: No Menopausal Symptoms: No hot flashes, No night sweats, No weight change, No mood changes, No difficulty concentrating, No sleep problems and No change in libido ROS Const Constitutional: Reports as per HPI; Denies fatigue, increased appetite, poor appetite, night sweats, weight gain or weight loss Cardio Card: Denies chest pain Resp Resp: Denies cough or dyspnea GI GI: Reports as per HPI; Denies abdominal pain, bloating, constipation, nausea or vomiting : Reports as per HPI and other; Denies difficulty voiding, dysuria, hematuria, hot flashes, nipple discharge, pelvic pain, prolapse symptoms, urinary frequency, urinary incontinence, urinary urgency, vaginal discharge, vaginal dryness, vaginal odor or vaginal pruritus Skin Skin/Breast: Denies changing lesions, breast mass, breast pain, breast skin changes or nipple discharge Psych Psych: Denies anxiety, change in libido, depression or difficulty concentrating Exam Const General: cooperative, healthy appearing, comfortable, no acute distress, well developed and well groomed [facility] Head: normal to inspection and normocephalic Ears: hearing grossly normal bilaterally and external ears normal Nose: external nose normal Face and sinus: normal facial exam Neck Neck: normal visual inspection, full ROM and no lymphadenopathy Thyroid: thyroid normal Chest Chest palpation inspection: normal inspection of the chest Breast inspection: normal inspection of the breasts and normal inspection of the axillae Breast palpation: normal palpation of the breasts, normal palpation of the axillae and no axillary lymphadenopathy Resp Effort Inspection: normal respi (more content not included)... Normal [facility] Basic Metabolic Profile (BMP )on 12-20-2023 BUN/CRE 12.3 RATIO Normal 10-20 [facility] Comment on above: Performed By: #### L 500.2500, L100.0100, L700.6800 #### [facility] [address] [place], [address] CA,Total 9.1 mg/dL Normal 8.5-10.1 [facility] Comment on above: Performed By: #### L 500.2500, L100.0100, L700.6800 #### [facility] [address] [place], [address] Chloride [Moles/Vol] 103 mmol/L Normal 98-107 [facility] Comment on above: Performed By: #### L 500.2500, L100.0100, L700.6800 #### [facility] [address] [place], [address] CO2 [Moles/Vol] 28.0 mmol/L Normal 21.0-32.0 [facility] Comment on above: Performed By: #### L 500.2500, L100.0100, L700.6800 #### [facility] [address] [place], [address] Creatinine [Mass/Vol] 0.89 mg/dL Normal 0.55-1.02 [facility] Comment on above: Result Comment: The validity of the calculated GFR GFRAA in patients over 70 years has not been determined. Clinical correlation is essential. Performed By: #### L 500.2500, L100.0100, L700.6800 #### [facility] [address] [place], [address] ECRCL 99.72 ml/min Normal [facility] Comment on above: Performed By: #### L 500.2500, L100.0100, L700.6800 #### [facility] [address] [place], [address] EST GFR - AA 95 mL/min Normal >60 [facility] Comment on above: Result Comment: Afri can [place] GFR Calc Performed By: #### L 500.2500, L100.0100, L700.6800 #### [facility] [address] [place], [address] GAP 7 Normal 5-15 [facility] Comment on above: Performed By: #### L 500.2500, L100.0100, L700.6800 #### [facility] [address] [place], [address] GFR/1.73 sq M.predicted among non-blacks MDRD (S/P/Bld) [Vol rate/Area] 79 mL/min/{1.73_m2} Normal >60 [facility] Comment on above: Result Comment: Non- GFR Calc Performed By: #### L 500.2500, L100.0100, L700.6800 #### [facility] [address] [place], [address] Glucose [Mass/Vol] 102 mg/dL Normal 74-106 [facility] Comment on above: Result Comment: Fast ing Glucose result from 100 to 125 mg/dL suggests IMPAIRED HOMEOSTASIS per A.D.A. criteria. Performed By: #### L 500.2500, L100.0100, L700.6800 #### [facility] [address] [place], [address] Potassium [Moles/Vol] 3.3 mmol/L Low 3.5-5.1 [facility] Comment on above: Performed By: #### L 500.2500, L100.0100, L700.6800 #### [facility] [address] [place], [address] Sodium [Moles/Vol] 138 mmol/L Normal 136-145 [facility] Comment on above: Performed By: #### L 500.2500, L100.0100, L700.6800 #### [facility] [address] [place], [address] Urea nitrogen [Mass/Vol] 11 mg/dL Normal 7-18 [facility] Comment on above: Performed By: #### L 500.2500, L100.0100, L700.6800 #### [facility] [address] [place], [address] CBC W/Diff, Automatedon 11-1 Absolute Lymph 0.90 X10 3/uL Normal 0.83-4.51 [facility] Comment on above: Performed By: #### L 500.2500, L100.0100, L700.6800 #### [facility] [address] [place], [address] Absolute Neut 5.8 X10 3/uL Normal 2.0-7.7 [facility] Comment on above: Performed By: #### L 500.2500, L100.0100, L700.6800 #### [facility] [address] [place], [address] Basophils/100 WBC (Bld) 0.6 % Normal 0-1 [facility] Comment on above: Performed By: #### L 500.2500, L100.0100, L700.6800 #### [facility] [address] [place], [address] Eosinophils/100 WBC (Bld) 0.3 % Normal 0-5 [facility] Comment on above: Performed By: #### L 500.2500, L100.0100, L700.6800 #### [facility] [address] [place], [address] Erythrocyte distribution width (RBC) [Ratio] 13.3 % Normal 11.6-14.6 [facility] Comment on above: Performed By: #### L 500.2500, L100.0100, L700.6800 #### [facility] [address] [place], [address] Hematocrit (Bld) [Volume fraction] 39.8 % Normal 37-47 [facility] Comment on above: Performed By: #### L 500.2500, L100.0100, L700.6800 #### [facility] [address] [place], [address] Hemoglobin (Bld) [Mass/Vol] 12.9 g/dL Normal 12.0-15.0 [facility] Comment on above: Performed By: #### L 500.2500, L100.0100, L700.6800 #### [facility] [address] [place], [address] IG% 0.300 Normal 0.0-0.9 [facility] Comment on above: Result Comment: IG% - Immature Granulocytes (promyelocytes, myelocytes and metamyelocytes) > 1% indicates that a LEFT SHIFT is Present. Performed By: #### L 500.2500, L100.0100, L700.6800 #### [facility] [address] [place], [address] Lymphocytes/100 WBC (Bld) 12.5 % Low 19-41 [facility] Comment on above: Performed By: #### L 500.2500, L100.0100, L700.6800 #### [facility] [address] [place], [address] MCH (RBC) [Entitic mass] 28.5 pg Normal 27.0-32.0 [facility] Comment on above: Performed By: #### L 500.2500, L100.0100, L700.6800 #### [facility] [address] [place], [address] MCHC (RBC) [Mass/Vol] 32.4 g/dL Normal 32-36 [facility] Comment on above: Performed By: #### L 500.2500, L100.0100, L700.6800 #### [facility] [address] [place], [address] MCV (RBC) [Entitic vol] 88.1 fL Normal 81-99 [facility] Comment on above: Performed By: #### L 500.2500, L100.0100, L700.6800 #### [facility] [address] [place], [address] Monocytes/100 WBC (Bld) 5.7 % Normal 0-10 [facility] Comment on above: Performed By: #### L 500.2500, L100.0100, L700.6800 #### [facility] [address] [place], [address] Neutrophils/100 WBC (Bld) 80.6 % High 47-70 [facility] Comment on above: Performed By: #### L 500.2500, L100.0100, L700.6800 #### [facility] [address] [place], [address] Nucleated RBC (Bld) [#/Vol] 0 10*3/uL Normal 0-5 [facility] Comment on above: Performed By: #### L 500.2500, L100.0100, L700.6800 #### [facility] [address] [place], [address] Platelet mean volume (Bld) [Entitic vol] 9.5 fL Normal 6.2-12.0 [facility] Comment on above: Performed By: #### L 500.2500, L100.0100, L700.6800 #### [facility] [address] [place], [address] Platelets (Bld) [#/Vol] 270 10*3/uL Normal 150-450 [facility] Comment on above: Performed By: #### L 500.2500, L100.0100, L700.6800 #### [facility] [address] [place], [address] RBC (Bld) [#/Vol] 4.52 10*6/uL Normal 4.2-5.4 [facility] Comment on above: Performed By: #### L 500.2500, L100.0100, L700.6800 #### [facility] [address] [place], [address] RDW SD 43.3 fl Normal 35.1-43.9 [facility] Comment on above: Performed By: #### L 500.2500, L100.0100, L700.6800 #### [facility] [address] [place], [address] WBC (Bld) [#/Vol] 7.2 10*3/uL Normal 4.4-11.0 [facility] Comment on above: Performed By: #### L 500.2500, L100.0100, L700.6800 #### [facility] [address] [place], [address] Chest PA and Lateralon 12-19 Chest PA and Lateral [facility] [address] [place] [address] Chest PA and Lateral MR#: [id number] Acct: [id number] Name: SHERRI ROSEN Rep #: [id number] : 1995 F 28 From: Layo sheridan DO PCP: Dr. Ailyn Brasher MD Status: [facility] ER Study: Chest PA and Lateral Date of Exam: 12/20/23 Exam# [id number] Ordering Dr: Romeo Richardson DO [id number] EXAM: XR CHEST, 2 VIEWS CLINICAL INDICATION: Fever TECHNIQUE: Frontal and lateral views of the chest. COMPARISON: 12/10/2022 FINDINGS: LUNGS AND PLEURAL SPACES: Left lower lobe pulmonary opacities consistent with pneumonia. No pneumothorax. No effusion. HEART: No significant abnormality. Cardiac silhouette not enlarged. MEDIASTINUM: Central airways and mediastinal contour are unremarkable. BONES/JOINTS: No significant abnormality. No acute fracture. SOFT TISSUES: No significant abnormality. RAD/Chest PA and Lateral IMPRESSION: Left lower lobe pulmonary opacities consistent with pneumonia. Electronically Signed: Layo Phelps DO at 20:04 EST , CC: Dr. Romeo Richardson DO; Dr. Ailyn Brasher MD Drum Puller: Signed Normal [facility] Emergency Department Summary on 12-20-2023 Emergency Department Summary [facility] Medical Records Department [address] [place] [address] Emergency Department Summary 12/20/23 MR#: [id number] Acct: [id number] Name: SHERRI ROSEN Rep #: [id number] : 1995 28 From: Romeo Richardson DO PCP: Dr. Ailyn Brasher MD Status:DEP ER Location: ED HPI History of Present Illness Chief Complaint: Fever Informant: patient Onset/Context/Timing Onset: Yesterday Context: Gradual Onset Timing: Continuous Quality: Aching Location: Generalized Worsened by: Nothing Relieved by: Warm bath Narrative Narrative: Patient presents with fever that began last night. Patient states that last night her temperature was up to 102. Patient states she has been taking some Tylenol. Patient states that today her temperature went up to 106.4 at home. Patient states she took Tylenol at home and this helped. Patient admits to diffuse myalgias. Patient describes it as aching. Patient also admits to a headache. Patient admits to some nausea but denies any vomiting. Patient admits to a cough but denies any sputum production. Patient denies any chest pain or shortness of breath. [facility] Medical History Primary snoring macrosomia hemorrhage History of cardiac murmur Family history of heart murmur Home Medications ???Medication ???Instructions ???Recorded ???Last Taken ???Type azithromycin 250 mg tablet 250 mg PO DAILY #4 TABLETS 12/20/23 Unknown Rx Allergy/AdvReac Type Severity Reaction Status Date / Time oxycodone Allergy Intermediate Vomiting Verified 12/20/23 18:09 Family History Father Heart disease Grandmother No problems noted. Surgical History S/P tonsillectomy and adenoidectomy Social History adopted: No household members: spouse and children housing: house number of children: 1 current occupational status: employed current occupation: [employer] Smoking Status: Former smoker second hand exposure: No alcohol intake: never substance use type: does not use what type of physical activity do you participate in: none and walking seatbelt use: always do you feel safe at home: Yes additional social history: Abram Patient works at [employer] ROS ROS ED Constitutional Constitutional ED: Reports fever(s); Denies chills Eyes Eyes: Reports blurry vision; Denies change in vision ENT ENT ED: Denies rhinorrhea or sore throat Cardiovascular Cardiovascular: Denies chest pain or palpitations Respiratory/Chest Respiratory/Chest: Denies cough or dyspnea Gastrointestinal Gastrointestinal: Reports nausea; Denies vomiting Genitourinary Genitourinary ED: Denies dysuria or hematuria Musculoskeletal Musculoskeletal: Reports neck pain; Denies back pain Integumentary Denies abscess or rash Neurologic Neurologic: Reports headache(s); Denies weakness Allergic/Immunologic Allergic/Immunologic ED: Denies mouth swelling or urticaria EXAM Physical Exam Const Vital Signs: 12/20/23 18:09 12/20/23 18:28 12/20/23 18:28 Temperature 98.6 F 99.6 F H Temperature Source Oral Oral Pulse Rate 97 75 Respiratory Rate 16 16 Respiratory Effort Normal Non-Labored Respiratory Pattern Normal Blood Pressure 137/84 H 111/83 H Blood Pressure Mean 101 92 Pulse Ox 98 100 Oxygen Delivery Method Room Air Room Air 12/20/23 19:11 12/20/23 19:22 12/20/23 20:00 Temperature 98.8 F 98.8 F 98.7 F Temperature Source Oral Oral Oral Pulse Rate 103 H 90 98 Respiratory Rate 18 18 18 Respiratory Effort Respiratory Pattern Blood Pressure 153/99 H 153/99 H 134/88 H Blood Pressure Mean 117 117 103 Pulse Ox 99 99 99 Oxygen Delivery Method Room Air Room Air Room Air Positive well nourished and well developed General Appearance ED: well developed and NAD HEENT Reports moist mucous membranes HEENT Narrative: Oropharynx is mildly erythematous. There are no exudates noted. Neck no lymphadenopathy, supple and no JVD Resp normal respiratory effort and clear to auscultation bilaterally Cardio regular rate and regular rhythm GI non-tender and non-distended Palpation: soft Neuro oriented x3, CN's II-XII intact bilaterally and no sensory deficits noted Sensorium / Orientation: alert Motor Exam: strength 5/5 throughout Psych mental status grossly normal MDM MDM MDM Narrative Medical decision making narrative: Differential diagnosis includes pneumonia, bronchitis, viral illness, and urinary tract infection. Chest x-ray will be obtained to assess for pneumonia and bronchitis. COVID-19, (more content not included)... Normal [facility] M100.678on 12-20-2023 M100.678 Pending SARS-CoV-2 (COVID 19) Negative INFLUENZA A Negative INFLUENZA B Negative RSV PCR Negative Normal [facility] Comment on above: Performed By: #### M 100.678 #### [facility] [address] [place], [address] ,Serum,hCG Quali.on 12-20-2023 HCG, SERUM QUAL Negative Normal [facility] Comment on above: Performed By: #### L 500.2500, L100.0100, L700.6800 #### [facility] [address] [place], [address] Urinalysis, Completeon 12-19 BACTERIA RARE Normal None Seen [facility] Comment on above: Order Comment: CLEAN CATCH Performed By: #### L 400.0001 #### [facility] [address] [place], [address] EPI,SQUAMOUS 0-5 SEEN Normal 5-10 [facility] Comment on above: Order Comment: CLEAN CATCH Performed By: #### L 400.0001 #### [facility] [address] [place], [address] WBC 0-5 SEEN Normal 0-5 [facility] Comment on above: Order Comment: CLEAN CATCH Performed By: #### L 400.0001 #### [facility] [address] [place], [address] Mucus Ql (Urine sed) 0 SEEN Normal [facility] Comment on above: Order Comment: CLEAN CATCH Performed By: #### L 400.0001 #### [facility] [address] [place], [address] RBC 0 SEEN Normal 0-5 [facility] Comment on above: Order Comment: CLEAN CATCH Performed By: #### L 400.0001 #### [facility] [address] [place], [address] Basophil percentageOrdered B y: Ailyn Brasher on 07-03-2022 Bilirubin [Mass/Vol] 0.40 mg/dL 0.20-1.00 [facility] Comment on above: For patients on eltr ombopag therapy, use of Dimension [place] TBIL is not recommended. Chloride [Moles/Vol] 104 mmol/L 98-107 [facility] Glucose [Mass/Vol] 89 mg/dL 74-106 [facility] Potassium [Moles/Vol] 3.4 mmol/L 3.5-5.1 [facility] Protein [Mass/Vol] 8.3 g/dL 6.4-8.2 [facility] Sodium [Moles/Vol] 139 mmol/L 136-145 [facility] - Chemistry and C hemistry - challengeOrdered By: Ailyn Brasher on 07-03-2022 ALP [Catalytic activity/Vol] 70 U/L 45-117 [facility] ALT [Catalytic activity/Vol] 18 U/L 13-56 [facility] CO2 [Moles/Vol] 27.0 mmol/L 21.0-32.0 [facility] Globulin (S) [Mass/Vol] 4.2 g/dL 2.2-4.2 [facility] Urea nitrogen/Creatinine [Mass ratio] 16.2 mg/mg 10-20 [facility] No Panel InformationOrdered By: Ailyn Brasher on 07-03-2022 Estimated GFR (MDRD) Amer 109 mL/min >60 [facility] Comment on above: GFR Calc Estimated GFR (MDRD) Non-Af Amer 90 mL/min >60 [facility] Comment on above: Non- GFR Calc Vitamin D 25-Hydroxy 60.0 ng/mL [facility] Comment on above: Vitamin D 25(OH) Sta tus Range Deficiency <20 ng/mL (50nmol/L) Insufficiency 20 - 30 ng/mL (50 - 75 nmol/L) Sufficiency 30 - 100 ng/mL (75 - 250 nmol/L) Toxicity >100 ng/mL (>250 nmol/L) Serum or plasma albumin payton urement (mass/volume)Ordered By: Ailyn Brasher on 07-03-2022 Albumin [Mass/Vol] 4.1 g/dL 3.2-5.0 [facility] Serum or plasma albumin/glob ulin mass ratioOrdered By: Ailyn Brasher on 07-03-2022 Albumin/Globulin [Mass ratio] 1.0 {ratio} 0.9-2.4 [facility] Serum or plasma calcium payton urement (mass/volume)Ordered By: Ailyn Brasher on 07-03-2022 Calcium [Mass/Vol] 9.2 mg/dL 8.5-10.1 [facility] Serum or plasma creatinine m easurement (mass/volume)Ordered By: Ailyn Brasher on 07-03-2022 Creatinine [Mass/Vol] 0.80 mg/dL 0.55-1.02 [facility] Comment on above: The validity of the calculated GFR & GFRAA in patients over 70 years has not been determined. Clinical correlation is essential. Serum or plasma urea nitroge n measurement (mass/volume)Ordered By: Ailyn Brasher on 07-03-2022 Urea nitrogen [Mass/Vol] 13 mg/dL 7-18 [facility] Thin prep Papanicolaou smear with manual screeningOrdered By: Ailyn Brasher on 07-03-2022 Thin prep Papanicolaou smear with manual screening 12 U/L 15-37 [facility] Thin prep Papanicolaou smear with manual screening 8 5-15 [facility] Absolute lymphocyte countOrd ered By: Dr. Brasher on 03-13-2022 Lymphocytes Auto (Unsp spec) [#/Vol] 2.30 10*3/uL 0.83-4.51 [facility] Basophil percentageOrdered B y: Dr. Brasher on 03-13-2022 Basophils/100 WBC (Bld) 0.9 % 0-1 [facility] Bilirubin [Mass/Vol] 0.40 mg/dL 0.20-1.00 [facility] Comment on above: For patients on eltr ombopag therapy, use of Dimension [place] TBIL is not recommended. Chloride [Moles/Vol] 106 mmol/L 98-107 [facility] Cholesterol [Mass/Vol] 144 mg/dL <200 [facility] Comment on above: <200 mg/dL Desirable 200-240 mg/dL Borderline >240 mg/dL High Risk Eosinophils/100 WBC (Bld) 2.6 % 0-5 [facility] Glucose [Mass/Vol] 93 mg/dL 74-106 [facility] Neutrophils (Bld) [#/Vol] 3.5 10*3/uL 2.0-7.7 [facility] Neutrophils/100 WBC (Bld) 53.4 % 47-70 [facility] Potassium [Moles/Vol] 3.6 mmol/L 3.5-5.1 [facility] Protein [Mass/Vol] 8.2 g/dL 6.4-8.2 [facility] Sodium [Moles/Vol] 142 mmol/L 136-145 [facility] Triglyceride [Mass/Vol] 113 mg/dL <199 [facility] Comment on above: The drugs N-Acetylcy steine and Metamizole may falsely depress this assay.Serum Triglycerides Reference Interval Normal <150 mg/dL Borderline high 150 - 199 mg/dL High 200 - 499 mg/dL Very High > or = 500 mg/dL WBC (Bld) [#/Vol] 6.6 10*3/uL 4.4-11.0 [facility] Blood erythrocytes count (nu mber/volume)Ordered By: Dr. Brasher on 03-13-2022 RBC (Bld) [#/Vol] 4.34 10*6/uL 4.2-5.4 [facility] Blood hemoglobin measurement (mass/volume)Ordered By: Dr. Brasher on 03-13-2022 Hemoglobin (Bld) [Mass/Vol] 12.7 g/dL 12.0-15.0 [facility] Blood lymphocytes/100 leukoc ytesOrdered By: Dr. Brasher on 03-13-2022 Lymphocytes/100 WBC (Bld) 35.0 % 19-41 [facility] Blood monocytes/100 leukocyt esOrdered By: Dr. Brasher on 03-13-2022 Monocytes/100 WBC (Bld) 7.9 % 0-10 [facility] Blood platelet mean volumeOr dered By: Dr. Brasher on 03-13-2022 Platelet mean volume (Bld) [Entitic vol] 10.2 fL 6.2-12.0 [facility] Determination of erythrocyte mean corpuscular volume (MCV)Ordered By: Dr. Brasher on 03-13-2022 MCV (RBC) [Entitic vol] 90.6 fL 81-99 [facility] Hematocrit Auto (Bld) [Volum e fraction]Ordered By: Dr. Brasher on 03-13-2022 Hematocrit (Bld) [Volume fraction] 39.3 % 37-47 [facility] - Chemistry and C hemistry - challengeOrdered By: Dr. Brasher on 03-13-2022 ALP [Catalytic activity/Vol] 66 U/L 45-117 [facility] ALT [Catalytic activity/Vol] 23 U/L 13-56 [facility] CO2 [Moles/Vol] 29.0 mmol/L 21.0-32.0 [facility] Cobalamin (Vitamin B12) [Mass/Vol] 383 pg/mL 211-911 [facility] Free T4 [Mass/Vol] 1.20 ng/dL 0.76-1.46 [facility] Globulin (S) [Mass/Vol] 4.0 g/dL 2.2-4.2 [facility] Urea nitrogen/Creatinine [Mass ratio] 17.1 mg/mg 10-20 [facility] - Hematology and Cell countsOrdered By: Dr. Brasher on 03-13-2022 Erythrocyte distribution width (RBC) [Entitic vol] 43.3 fL 35.1-43.9 [facility] Erythrocyte distribution width (RBC) [Ratio] 13.1 % 11.6-14.6 [facility] Immature granulocytes/100 WBC (Bld) 0.200 % 0.0-0.9 [facility] Comment on above: IG% - Immature Granu locytes (promyelocytes, myelocytes and metamyelocytes) > 1% indicates that a LEFT SHIFT is Present. MCH (RBC) [Entitic mass] 29.3 pg 27.0-32.0 [facility] Nucleated RBC/100 WBC (Bld) [Ratio] 0 % 0-5 [facility] MCHC Auto (RBC) [Mass/Vol]Or dered By: Dr. Brasher on 03-13-2022 MCHC (RBC) [Mass/Vol] 32.3 g/dL 32-36 [facility] No Panel InformationOrdered By: Dr. Brasher on 03-13-2022 Estimated GFR (MDRD) Amer 80 mL/min >60 [facility] Comment on above: GFR Calc Estimated GFR (MDRD) Non-Af Amer 66 mL/min >60 [facility] Comment on above: Non- GFR Calc Thyroid Stimulating Hormone (TSH) 2.97 uIU/mL 0.358-3.74 [facility] Vitamin D 25-Hydroxy 18.2 ng/mL [facility] Comment on above: Vitamin D 25(OH) Sta tus Range Deficiency <20 ng/mL (50nmol/L) Insufficiency 20 - 30 ng/mL (50 - 75 nmol/L) Sufficiency 30 - 100 ng/mL (75 - 250 nmol/L) Toxicity >100 ng/mL (>250 nmol/L) Platelets bldOrdered By: Dr. Brasher on 03-13-2022 Platelets (Bld) [#/Vol] 340 10*3/uL 150-450 [facility] Serum or plasma albumin payton urement (mass/volume)Ordered By: Dr. Brasher on 03-13-2022 Albumin [Mass/Vol] 4.2 g/dL 3.2-5.0 [facility] Serum or plasma albumin/glob ulin mass ratioOrdered By: Dr. Brasher on 03-13-2022 Albumin/Globulin [Mass ratio] 1.0 {ratio} 0.9-2.4 [facility] Serum or plasma calcium payton urement (mass/volume)Ordered By: Dr. Brasher on 03-13-2022 Calcium [Mass/Vol] 9.3 mg/dL 8.5-10.1 [facility] Serum or plasma cholesterol in HDL measurement (mass/volume)Ordered By: Dr. Brasher on 03-13-2022 Cholesterol in HDL [Mass/Vol] 37 mg/dL >40 [facility] Comment on above: The drugs N-Acetylcy steine and Metamizole may falsely depress this assay. Reference Range HDL <40 mg/dL Low HDL Cholesterol HDL >or= 60 mg/dL High HDL Cholesterol Serum or plasma cholesterol in VLDL measurement (mass/volume)Ordered By: Dr. Brasher on 03-13-2022 Cholesterol in VLDL [Mass/Vol] 23 mg/dL 5-40 [facility] Serum or plasma creatinine m easurement (mass/volume)Ordered By: Dr. Brasher on 03-13-2022 Creatinine [Mass/Vol] 1.05 mg/dL 0.55-1.02 [facility] Comment on above: The validity of the calculated GFR & GFRAA in patients over 70 years has not been determined. Clinical correlation is essential. Serum or plasma low density lipoprotein (LDL) cholesterol measurement (mass/volume)Ordered By: Dr. Brasher on 03-13-2022 Cholesterol in LDL [Mass/Vol] 84 mg/dL 0-130 [facility] Serum or plasma urea nitroge n measurement (mass/volume)Ordered By: Dr. Brasher on 03-13-2022 Urea nitrogen [Mass/Vol] 18 mg/dL 7-18 [facility] Thin prep Papanicolaou smear with manual screeningOrdered By: Dr. Brasher on 03-13-2022 Thin prep Papanicolaou smear with manual screening 14 U/L 15-37 [facility] Thin prep Papanicolaou smear with manual screening 7 5-15 [facility] STREP A MOLECULAR (POC)on Procedural Control Valid [facility] Strep A (POCT) Negative Negative [facility] Comprehensive Panelon 2017 ALP enzyme act/vol 68 U/L Normal 46-116 [facility] Comment on above: Performed By: #### P 14 ####[address] [address] Bilirubin mass conc 0.5 mg/dL Normal 0.2-1.0 [facility] Comment on above: Performed By: #### P 14 ####[facility] [place], [place] [address] Protein mass conc 8.2 g/dL Normal 6.4-8.2 [facility] Comment on above: Performed By: #### P 14 ####[facility] [place], [place] [address] ALT enzyme act/vol 23 U/L Normal 12- [facility] Comment on above: Performed By: #### P 14 ####[facility] [place], [place] [address] AST enzyme act/vol 14 U/L Normal 9 [facility] Comment on above: Performed By: #### P 14 ####[facility] [place], [place] [address] Creatinine mass conc 0.66 mg/dL Normal 0.51-0.95 [facility] Comment on above: Performed By: #### P 14 ####[facility] [place], [place] [address] Albumin mass conc 4.2 g/dL Normal 3.4-5.0 [facility] Comment on above: Performed By: #### P 14 ####[address] [address] Anion gap 3 molar conc 10 mmol/L Normal 8-16 [facility] Comment on above: Performed By: #### P 14 ####[facility] [place], [place] [address] Calcium mass conc 9.0 mg/dL Normal 8.5-10.1 [facility] Comment on above: Performed By: #### P 14 ####[place] [address] CO2 molar conc 27 mmol/L Normal 21-32 [facility] Comment on above: Performed By: #### P 14 ####[place] [address] Glucose mass conc 101 mg/dL High 70-99 [facility] Comment on above: Performed By: #### P 14 ####[facility] [place], [place] [address] Urea nitrogen mass conc 11 mg/dL Normal 7-18 [facility] Comment on above: Performed By: #### P 14 ####[facility] [place], [place] [address] Chloride molar conc 104 mmol/L Normal 98-107 [facility] Comment on above: Performed By: #### P 14 ####[facility] [place] [address] Potassium molar conc 3.5 mmol/L Normal 3.5-5.1 [facility] Comment on above: Performed By: #### P 14 ####[facility] [place] [address] Sodium molar conc 137 mmol/L Normal 136-145 [facility] Comment on above: Performed By: #### P 14 ####[place] [address] ED NOTEon 01-19-2018 ED NOTE HNO ID: [id number] thor: Samanta (Rn) [place] RNService: Emergency MedicineAuthor Type: Registered NurseType: ED NotesFiled: 01/19/2018 12:25 AMNote Text:Discharge instructions and prescriptions given to pt. Pt verbalizedunderstanding of follow up with PCP and s/s to return to ED. All questionsanswered. Pt ambulatory by self on departure. Normal [facility] ED NOTE HNO ID: [id number] thor: Hubert (Rn) [place] RNService: Emergency MedicineAuthor Type: Registered NurseType: ED NotesFiled: 01/18/2018 10:32 PMNote Text:Pt seen [facility] and told she may have Mastoiditis, pt has alump behind left ear rates pain 3/10 at this time. Pt was told to comehere because urgent care could not do anything. Pt has tenderness behindleft ear Normal [facility] ED PROV NOTEon 01-19-2018 Protein mass conc HNO ID: [id number] thor: Moses Wilde DOService: Emergency MedicineAuthor Type: PhysicianType: ED Provider NotesFiled: 01/19/2018 12:26 AMNote Text:ED Provider NotePatient Name: Sherri LoaizaRN: [id number] DATE: 01/18/18HistoryPatient presents with:Ear Pain: behind left [id number] otherwise healthy female presents with pain behind the leftear that she's had over the past month. The patient was seen at urgentcare today and was referred to the ED for evaluation for mastoiditis. Thepatient states that the pain has been constant over the past month. Shedenies any injuries to the area. No pain in the ear canal or internal earpain. No fevers or chills. No trauma to the area. No tinnitus. Nodizziness. Denies any other URI symptoms. No nausea or vomiting. She isnot diabetic. She has not been taking any medications for the pain. Shehas no neck pain or rash. She has no other complaints.PAST MEDICAL HISTORYDiagnosis Date- Allergic rhinitis, cause unspecified- Seizure (HCC) febrile seizure x 1 age 2 , no further seizures.PAST SURGICAL HISTORYProcedure Laterality Date- REMOVAL OF TONSILS,<11 Y/O TonsillectomyFAMILY HISTORYProblem Relation Age of Onset- Hypertension Maternal Grandmother- Cancer Paternal Grandmother- Stroke Paternal Grandmother- other (skin cancer [Other]) Maternal Grandmother bc AND scSocial HistorySocial History Main Topics- Smoking status: Never Smoker- Smokeless tobacco: Never Used- Alcohol use No- Drug use: No- Sexual activity: NoALLERGIESAllergen Reactions- Environmental [Othe*Review of SystemsConstitutional: Negative for chills, diaphoresis, fatigue and fever.HENT: Positive for ear pain. Negative for congestion, dental problem, eardischarge, facial swelling, nosebleeds, postnasal drip, rhinorrhea, sinuspain, sinus pressure, sore throat, tinnitus, trouble swallowing and voicechange.Eyes: Negative for photophobia, pain, discharge, redness, itching andvisual disturbance.Respiratory: Negative for cough, choking, chest tightness, shortness ofbreath and stridor.Cardiovascular: Negative for chest pain and palpitations.Gastrointesti nal: Negative for abdominal distention, abdominal pain, bloodin stool, constipation, diarrhea, nausea and vomiting.Endocrine: Negative for polydipsia and polyuria.Genitourinary: Negative for difficulty urinating, dysuria, flank pain,frequency, hematuria and urgency.Musculoskeletal: Negative for arthralgias, back pain, gait problem,myalgias, neck pain and neck stiffness.Skin: Negative for color change and rash.Neurological: Negative for dizziness, tremors, syncope, speech difficulty,weakness, light-headedness, numbness and headaches.Hematological: Negative for adenopathy.Psychiatric/Beh avioral: Negative for confusion, hallucinations,self-injury and suicidal ideas. The patient is not nervous/anxious.Physical ExamBP 138/76 Pulse 82 Temp (Src) 98.4 (Oral) Resp 18 Ht 5' 3 (1.60m) Wt 154 lb (69.9kg) SpO2 100% LMP 12/20/2017 BMI 27.29 kg/(m2).Physical ExamConstitutional: She is oriented to person, place, and time. She appearswell-developed and well-nourished. Non-toxic appearance. No distress.HENT:Head: Normocephalic and atraumatic.Right Ear: External ear normal.Left Ear: External ear normal.Nose: Nose normal.Mouth/Throat: Oropharynx is clear and moist. No oropharyngeal exudate.There is very mild swelling to the left mastoid area. The swelling is masha circular area. There is no overlying erythema. There is very minimalpain to palpation. No external ear swelling or pain. No pain withmanipulation of the ear. Ear canal is clear with no edema or debris. TMsare clear bilaterally.Eyes: Pupils are equal, round, and reactive to light. Conjunctivae and EOMare normal. Right eye exhibits no discharge. Left eye exhibits nodischarge. No scleral icterus.Neck: Normal range of motion. Neck supple. No JVD present. No trachealdeviation present.No nuchal rigidity or meningeal signs.Cardiovascular: Normal rate, regular rhythm, normal heart sounds andintact distal pulses. Exam reveals no gallop and no friction rub.No murmur heard.Pulmonary/Chest: Breath sounds normal. No stridor. No respiratorydistress. She has no wheezes. She has no rales. She exhibits notenderness.Abdominal: Soft. Bowel sounds are normal. She exhibits no distension andno mass. There is no tenderness. There is no rebound and no guarding.Musculoskeletal: Normal range of motion. She exhibits no edema ortenderness.Lymphadenopat hy: She has no cervical adenopathy.Neurological: She is alert and oriented to person, place, and time. Shehas normal reflexes. She displays normal reflexes. No cranial nervedeficit. She exhibits normal muscle tone. Coordination normal.Skin: Skin is warm and dry. No rash noted. She is not diaphoretic.Psychiatric: She has a normal mood and affect. Her behavior is normal.Judgment and thought content normal.Nursing note and vitals reviewed.Diagnostic TestingED Labs Ordered and ReviewedCBC + AUTO DIFF (AK,AV,EU,FV,HL,TITUS,MM,SP) - Abnormal; Notable for thefollowing: Result Value Ref Range Abs. Lymph 4.05 (*) 1.18 - 3.74 thou/cmm Abs. Baso 0.10 (*) 0.01 - 0.08 thou/cmm All other components within normal limitsCOMPREHENSIVE METABOLIC PANEL (AK,AV,EU,FV,HL,TITUS,MM,SP) - Abnormal;Notable for the following: Glucose 101 (*) 70 - 99 mg/dL All other components within normal limitsMDRD GFRHCG QUALITATIVE URINE (AK,AV,EU,FV,HL,TITUS,MM,SP)R esults for orders placed or performed during the hospital encounter of01/18/18CBC + AUTO DIFF (AK,AV,EU,FV,HL,TITUS,MM,SP)R esult Value Ref Range WBC 9.13 3.98 - 10.04 thou/cmm RBC 4.35 3.93 - 5.22 mil/cmm HGB 13.3 11.2 - 15.7 g/dL Hematocrit 38.6 34.1 - 44.9 % MCV 88.7 79.4 - 94.8 fl MCH 30.6 25.6 - 32.2 pg MCHC 34.5 31.6 - 34.8 % RDW 11.9 11.7 - 14.4 % RDW-SD 38.7 36.4 - 46.3 fl Platelet Count 290 182 - 369 thou/cmm MPV 9.6 9.4 - 12.3 fl Seg Neutrophil 45.1 % Immature Grans 0.20 % Lymphocyte 44.4 % Monocyte 7.6 % Eosinophil 1.6 % Basophil 1.1 % Abs. Neut(Anc) 4.12 1.56 - 6.13 thou/cmm Immature Grans # 0.02 0.00 - 0.05 thou/cmm Abs. Lymph 4.05 (H) 1.18 - 3.74 thou/cmm Abs. Cache 0.69 0.27 - 0.70 thou/cmm Abs. Eosin 0.15 0.00 - 0.31 thou/cmm Abs. Baso 0.10 (H) 0.01 - 0.08 thou/cmmCOMPREHENSIVE METABOLIC PANEL (AK,AV,EU,FV,HL,TITUS,MM,SP)R esult Value Ref Range Sodium 137 136 - 145 mEq/L Potassium 3.5 3.5 - 5.1 mEq/L Chloride 104 98 - 107 mEq/L CO2 27 21 - 32 mEq/L Glucose 101 (H) 70 - 99 mg/dL BUN 11 7 - 18 mg/dL Creatinine 0.66 0.51 - 0.95 mg/dL Calcium 9.0 8.5 - 10.1 mg/dL Albumin 4.2 3.4 - 5.0 g/dL Protein, Total 8.2 6.4 - 8.2 g/dL AST 14 9 - 37 U/L ALT 23 12 - 78 U/L Alkaline Phosphatase 68 46 - 116 U/L Bilirubin, Total 0.5 0.2 - 1.0 mg/dL Anion Gap 10 8 - 16MDRD GFRResult Value Ref Range eGFR >60 >60mL/min/[id number] ED Course / Clinical ImpressionClinical Impressions as of Jan 19 19Posterior auricular pain of left earMDM / Disposition / [id number] female presents from urgent care for concern for mastoiditis.The patient is having symptoms for a month. She is not diabetic. She isafebrile and is nontoxic appearing. On physical exam, she has some verymild swelling to the left mastoid area but no overlying erythema. Theswelling is actually in a circular area. I think that it would be veryunlikely for her to have mastoiditis for the past month and have nooverlying erythema, no fever, and be well-appearing. Laboratory workupwas obtained from triage and there is no leukocytosis. However, the causeof her symptoms are not completely clear. I did offer her CT imaging ofthe mastoid and facial bones to rule out and/or confirm diagnosis ofmastoiditis. However, she is declining at this time. She is exercisinginformed refusal at this time. We will treat her with antibiotics for apresumed very minor mastoiditis. Recommended NSAIDs for pain andinflammation as needed. Otherwise she is to follow up with her primarycare doctor or return for any worsening or new symptoms. She is agreeablewith plan.The patient was DISCHARGED: Counseled patient regarding lab results ANDsuspected diagnosis AND need for follow-up. Discharged home with verbal andwritten instructions. They were instructed to return as needed forpersistent or worsening symptoms or any new concerns.Condition at time of disposition: stableSIGNATURE: Tone Vela, DO01/19/18 0026 Normal [facility] ED Triage Noteon 01-19-2018 Cholesterol mass conc HNO ID: [id number] Author: Jose Eduardo (Osiel) Luis Fernando Sullivan: (none)Author Type: Physician AssistantType: ED Triage NotesFiled: 01/18/2018 10:33 PMNote Text:ED INTAKE NOTEPatient Name: Sherri EscalonaN: [id number] Date: 01/18/18BRIEF HPI:22-year-old female presents [place] the [place] for evaluation. [place] she [place] have mastoiditis he statesthat she has a lump behind her left ear and she states that that is tenderto palpation. She states she's had these symptoms for a few days. Deniesany fevers or chills.BRIEF EXAM:Pupils are round, reactive and equal bilaterallyHeart rate is regularLungs are clear to auscultation bilaterallytenderness to L mastoid processINTAKE WORKUP:Cbc, cmp, hcgPlan deferredSIGNATURE: Jose Eduardo Sullivan PA-C Normal [facility] Hemogram/Diffon 01-19-2018 Abs Immature Grans 0.02 thou/cmm Normal 0.00-0.05 [facility] Comment on above: Performed By: #### C BCD1 ####[place] [address] Abs. Baso 0.10 thou/cmm High 0.01-0.08 [facility] Comment on above: Result Comment: Smea r scanned; tech agrees with automated differential Performed By: #### C BCD1 ####[place] [address] Abs. Cache 0.69 thou/cmm Normal 0.27-0.70 [facility] Comment on above: Performed By: #### C BCD1 ####[place] [address] Abs. Neut (ANC) 4.12 thou/cmm Normal 1.56-6.13 [facility] Comment on above: Performed By: #### C BCD1 ####[place] [address] Basophils/100 WBC Auto (Bld) 1.1 % Normal [facility] Comment on above: Performed By: #### C BCD1 ####[place] [address] Eosinophils Auto #/vol (Bld) 0.15 thou/cmm Normal 0.00-0.31 [facility] Comment on above: Performed By: #### C BCD1 ####[place] [address] Eosinophils/100 WBC Auto (Bld) 1.6 % Normal [facility] Comment on above: Performed By: #### C BCD1 ####[place] [address] Immature Grans 0.20 % Normal [facility] Comment on above: Performed By: #### C BCD1 ####[place] [address] Lymphocytes Auto #/vol (Bld) 4.05 thou/cmm High 1.18-3.74 [facility] Comment on above: Performed By: #### C BCD1 ####[place] [address] Lymphocytes/100 WBC Auto (Bld) 44.4 % Normal [facility] Comment on above: Performed By: #### C BCD1 ####[address] [address] Monocytes/100 WBC Auto (Bld) 7.6 % Normal [facility] Comment on above: Performed By: #### C BCD1 ####[address] [address] Seg Neutrophil 45.1 % Normal [facility] Comment on above: Performed By: #### C BCD1 ####[address] [address] Erythrocyte distribution width Auto Ratio (RBC) 11.9 % Normal 11.7-14.4 [facility] Comment on above: Performed By: #### C BCD1 ####[place] [address] Hematocrit Auto Volume Fraction (Bld) 38.6 % Normal 34.1-44.9 [facility] Comment on above: Performed By: #### C BCD1 ####[address] [address] Hemoglobin mass conc (Bld) 13.3 g/dL Normal 11.2-15.7 [facility] Comment on above: Performed By: #### C BCD1 ####[place] [address] MCH Auto Entitic mass (RBC) 30.6 pg Normal 25.6-32.2 [facility] Comment on above: Performed By: #### C BCD1 ####[address] [address] MCHC Auto mass conc (RBC) 34.5 % Normal 31.6-34.8 [facility] Comment on above: Performed By: #### C BCD1 ####[place] [address] MCV Auto Entitic volume (RBC) 88.7 fL Normal 79.4-94.8 [facility] Comment on above: Performed By: #### C BCD1 ####[place] [address] Platelet mean volume Auto Entitic volume (Bld) 9.6 fL Normal 9.4-12.3 [facility] Comment on above: Performed By: #### C BCD1 ####[place] [id number] Platelets Auto #/vol (Bld) 290 thou/cmm Normal 182-369 [facility] Comment on above: Performed By: #### C BCD1 ####[place] [id number] RBC Auto #/vol (Bld) 4.35 mil/cmm Normal 3.93-5.22 [facility] Comment on above: Performed By: #### C BCD1 ####[place] [id number] RDW SD 38.7 fl Normal 36.4-46.3 [facility] Comment on above: Performed By: #### C BCD1 ####[place] [id number] WBC Auto #/vol (Bld) 9.13 thou/cmm Normal 3.98-10.04 [facility] Comment on above: Performed By: #### C BCD1 ####[place] [id number] MDRD GFRon 01-19-2018 GFR/1.73 sq M predicted among non-blacks MDRD vol rate/area (S/P/Bld) mL/min/{1.73_m2} Normal >60mL/min/1. 73m2 [facility] Comment on above: Result Comment: If t he patient is , multiply the result by 1.210. Performed By: #### G FR ####[place] [id number] Vital Signs Date Time Vital Sign Value Performing Clinician Facility 09-01-2024 16:15-0400 Body mass index (BMI) [Ratio] 35.15 kg/m2 Sarai SANDS Work Phone: [facility] 09-01-2024 16:15-0400 Body temperature 99.19 [degF] Krislyn Aberegg PA Work Phone: [facility] 09-01-2024 16:15-0400 Body weight 90 kg Krislyn Aberegg PA Work Phone: [facility] 09-01-2024 16:15-0400 Diastolic blood pressure 85 mm[Hg] Krislyn Aberegg PA Work Phone: [facility] 09-01-2024 16:15-0400 Heart rate 77 /min Krislyn Aberegg PA Work Phone: [facility] 09-01-2024 16:15-0400 Respiratory rate 20 /min Krislyn Aberegg PA Work Phone: [facility] 09-01-2024 16:15-0400 SaO2% (BldA) [Mass fraction] 100 % Krislyn Aberegg PA Work Phone: [facility] 09-01-2024 16:15-0400 Systolic blood pressure 123 mm[Hg] Krislyn Aberegg PA Work Phone: [facility] 07-06-2024 08:07-0400 Body mass index (BMI) [Ratio] 35.26 kg/m2 Madhuri Christopher APRN.PRICER Work Phone: [facility] 07-06-2024 08:07-0400 Body temperature 98.49 [degF] Madhuri Christopher APRN.PRICER Work Phone: [facility] 07-06-2024 08:07-0400 Body weight 90.3 kg Madhuri Christopher OTC CLERK.PRICER Work Phone: [facility] 07-06-2024 08:07-0400 Diastolic blood pressure 88 mm[Hg] Madhuri Christopher OTC CLERK.PRICER Work Phone: [facility] 07-06-2024 08:07-0400 Heart rate 93 /min Madhuri Christopher APRN.PRICER Work Phone: [facility] 07-06-2024 08:07-0400 Respiratory rate 18 /min Madhuri Christopher OTC CLERK.PRICER Work Phone: [facility] 07-06-2024 08:07-0400 SaO2% (BldA) [Mass fraction] 100 % Madhuri Ashwin OTC CLERK.PRICER Work Phone: [facility] 07-06-2024 08:07-0400 Systolic blood pressure 127 mm[Hg] Madhuri Ashwin OTC CLERK.PRICER Work Phone: [facility] 07-03-2024 11:50-0400 Body mass index (BMI) [Ratio] 35.26 kg/m2 Ariel Swank OTC CLERK.PRICER Work Phone: [facility] 07-03-2024 11:50-0400 Body temperature 99.1 [degF] Ariel Swank OTC CLERK.PRICER Work Phone: [facility] 07-03-2024 11:50-0400 Body weight 90.3 kg Ariel Swank OTC CLERK.PRICER Work Phone: [facility] 07-03-2024 11:50-0400 Diastolic blood pressure 82 mm[Hg] Ariel Swank OTC CLERK.PRICER Work Phone: [facility] 07-03-2024 11:50-0400 Heart rate 76 /min Ariel Swank OTC CLERK.PRICER Work Phone: [facility] 07-03-2024 11:50-0400 Respiratory rate 18 /min Ariel Swank OTC CLERK.PRICER Work Phone: [facility] 07-03-2024 11:50-0400 SaO2% (BldA) [Mass fraction] 98 % Ariel Swank OTC CLERK.PRICER Work Phone: [facility] 07-03-2024 11:50-0400 Systolic blood pressure 128 mm[Hg] Ariel Swank OTC CLERK.PRICER Work Phone: [facility] 04-17-2022 14:35-0500 Body height 160.[address] Ailyn Brasher Work Phone: [facility] 04-17-2022 14:34-0500 Body mass index (BMI) [Ratio] 33.7 kg/m2 Dr. Ailyn Brasher Work Phone: [facility] 04-17-2022 14:34-0500 Body weight 86.[address] Ailyn Brasher Work Phone: [facility] 04-17-2022 14:34-0500 Diastolic blood pressure 75 mm[Hg] Dr. Ailyn Brasher Work Phone: [facility] 04-17-2022 14:34-0500 Systolic blood pressure 117 mm[Hg] Dr. Ailyn Brasher Work Phone: [facility] 04-17-2022 09:24-0500 Body mass index (BMI) [Ratio] 33.3 kg/m2 Dr. Ailyn Brasher Work Phone: [phone] [place] [address] 04-17-2022 09:24-0500 Body temperature 97.2 [degF] Dr. Ailyn Brasher Work Phone: [facility] 04-17-2022 09:24-0500 Body weight 85.[address] Ailyn Brasher Work Phone: [facility] 04-17-2022 09:24-0500 Diastolic blood pressure 88 mm[Hg] Dr. Ailyn Brasher Work Phone: [facility] 04-17-2022 09:24-0500 Heart rate 60 /min Dr. Ailyn Brasher Work Phone: [facility] 04-17-2022 09:24-0500 Respiratory rate 18 /min Dr. Ailyn Brasher Work Phone: [facility] 04-17-2022 09:24-0500 SaO2% (BldA) [Mass fraction] 96 % Dr. Ailyn Brasher Work Phone: [facility] 04-17-2022 09:24-0500 Systolic blood pressure 137 mm[Hg] Dr. Ailyn Brasher Work Phone: [facility] 01-30-2022 17:56-0500 Body temperature 99.3 [degF] Kanu Walkerlornaremedios OTC CLERK.PRICER Work Phone: [facility] 01-30-2022 17:56-0500 Body weight 87.54 kg Kanu Walkerlornaremedios OTC CLERK.PRICER Work Phone: [facility] 01-30-2022 17:56-0500 Diastolic blood pressure 86 mm[Hg] Kanu Walkerlornaremedios OTC CLERK.PRICER Work Phone: [facility] 01-30-2022 17:56-0500 Heart rate 94 /min Kanu Walkerlornaremedios OTC CLERK.PRICER Work Phone: [facility] 01-30-2022 17:56-0500 Respiratory rate 20 /min Kanu Walkerlornaremedios OTC CLERK.PRICER Work Phone: [facility] 01-30-2022 17:56-0500 SaO2% (BldA) [Mass fraction] 100 % [facility] OTC CL[facility].PRICER Work Phone: [facility] 01-30-2022 17:56-0500 Systolic blood pressure 130 mm[Hg] [facility] OTC CL[facility].PRICER Work Phone: [facility] Encounters Encounter Date Encounter Type Care Provider Facility Start: 09-01-2024 End: 09-01-2024 Patient encounter procedure Sarai SANDS Work Phone: [facility] Comment on above: Migraine without aur a and without status migrainosus, not intractable (Primary Dx) Start: 09-01-2024 End: 09-01-2024 ambulatory [facility] Facility:[facility] Start: 07-06-2024 End: 07-06-2024 Patient encounter procedure Madhuri Christopher OTC CLERK.PRICER Work Phone: [facility] Comment on above: Strep throat (Primar y Dx); Sore throat Start: 07-06-2024 End: 07-06-2024 ambulatory MADHURI CHRISTOPHER Facility:[facility] Start: 07-03-2024 End: 07-03-2024 Patient encounter procedure Ariel Solo OTC CLERKBARRY Work Phone: [facility] Comment on above: Sore throat (Primary Dx); Viral pharyngitis Start: 07-03-2024 End: 07-03-2024 ambulatory ARIEL SOLO Facility:[facility] Start: 2024 End: 2024 ambulatory Gudelia Ash Miller Facility:[facility] Start: 2024 End: 2024 [facility]ulatory [facility] Start: 12-20-2023 End: 12-20-2023 Emergency department patient visit Ailyn Brasher Facility:[facility] Start: 12-10-2022 End: 12-10-2022 ambulatory [facility] Work Phone: Start: 12-10-2022 End: 12-10-2022 Patient encounter procedure [facility] Work Phone: Start: 07-03-2022 End: 07-03-[address] Ailyn Brasher Work Phone: [facility] Work Phone: Start: 07-03-2022 End: 07-03-[address] Ailyn Brasher Work Phone: [facility] Start: 06-04-2022 End: 06-04-[address] Ailyn Brasher Work Phone: [facility] Work Phone: Start: 06-04-2022 End: 06-04-[address] Ailyn Brasher Work Phone: [facility] Lab Start: 04-17-2022 End: 04-17-[address] Ailyn Brasher Work Phone: [facility] Start: 04-17-2022 End: 04-17-[address] Ailyn Brasher Work Phone: [facility]-Pulmonary Medicine [facility] Start: 03-20-2022 Non-patient / Non-visit Dr. Criss Brasher Work Phone: [facility] Start: 03-20-2022 End: 03-20-[address] Ailyn Brasher Work Phone: [facility] Work Phone: Start: 03-20-2022 End: 03-20-[address] Ailyn Brasher Work Phone: [facility]Cardiov[facility] Start: 03-13-2022 End: 03-13-[address] Ailyn Brasher Work Phone: [facility] Work Phone: Start: 03-13-2022 End: 03-13-[address] Ailyn Brasher Work Phone[facility] Start: 01-30-2022 End: 01-30-2022 Office outpatient visit 25 minutes Kanu Hill APRN.PRICER Work Phone: [facility] Comment on above: Pharyngitis, unspeci fied etiology (Primary Dx); Acute otitis media, left Start: 01-19-2018 End: 01-19-2018 Emergency department patient visit ADEBAYO WILKES Facility:[facility] Procedures Date Procedure Procedure Detail Performing Clinician Start: 07-06-2024 STREP A MOLECULAR (POC) Madhuri Christopher APRN.PRICER Work Phone: Start: 07-03-2024 STREP A MOLECULAR (POC) Ariel Solo APRN.PRICER Work Phone: Start: 12-10-2022 Plain chest X-ray Start: 01-30-2022 STREP A MOLECULAR (POC) Kanu Hill APRN.PRICER Work Phone: Plan of Treatment Date Care Activity Detail Author Start: 12-05-2024 End: 12-05-2024 Patient encounter procedure 12/05/2024 2:00 PM EDT Office Visit [facility] [address] [place] [address] Queta Lawson APRN.PRICER [address] [place] [address] Establish [facility] Comment on above: Establish Care Start: 10-09-2024 Influenza vaccination C [facility] Start: 10-10-2023 Covid-19 Vaccine ( season) Covid-19 Vacc[address] () [facility] Start: 03-20-2022 Echo tthrc r-t 2d w/wom-mode compl spec&colr d TTE W/DOPPLER COMPLETE [facility] Start: 10-09-2021 Influenza vaccination INFLUENZA (#1) [facility] Start: 08-10-2021 PAP TESTING PAP TESTING [facility] Start: 08-10-2021 Screening for malign ant neoplasm of cervix Cervical Cancer Screening [facility] Start: 02-08-2021 DEPRESSION ASSESSMENT [facility] Start: 09-18-[address] [facility] Start: 01-29-2012 Anxiety Screening Anxiety Screening [facility] Start: 01-29-2012 Depression Screening Depression Scre [facility] Start: 01-29-2012 HEPATITIS C SCREENING HEPATITIS C [facility] Start: 01-29-2012 Hepatitis C screening Hepatitis C [facility] Start: 01-29-2012 HIV SCREENING HIV SCREENING [facility] Start: 01-29-2012 HIV screening HIV Screening [facility] Start: 1994 COVID-19 VACCINE (#1) COVID-19 VACCI NE (#1) [facility] Immunizations Immunization Date Immunization Notes Care Provider Fa cility 02-03-2018 influenza virus vaccine, unspecified formulation Ariel Solo APRN.PRICER Work Phone: [facility] 09-18-2010 diphtheria, tetanus toxoids and acellular pertussis vaccine Kanu Hill OTC CLERK.PRICER Work Phone: [facility] Work Phone: 09-18-2010 varicella virus vaccine [facility] OTC CLERK.PRICER Work Phone: [facility] Work Phone: 10-12-2008 human papilloma viru s vaccine, quadrivalent [facility]ony [facility] OTC CLERK.PRICER Work Phone: [facility] Work Phone: 06-11-2008 human papilloma viru s vaccine, quadrivalent [facility] OTC CLERK.PRICER Work Phone: [facility] Work Phone: 04-12-2008 human papilloma viru s vaccine, quadrivalent [facility] OTC CLERK.[facility] Work Phone: [facility] 12-13-2006 influenza virus vaccine, unspecified formulation [facility]uebony [facility] OTC CLERK.[facility] Work Phone: [facility] Work Phone: 02-10-1999 diphtheria, tetanus toxoids and acellular pertussis vaccine [facility] OTC CLERK.PRICER Work Phone: [facility] Work Phone: 02-10-1999 measles, mumps and rubella virus vaccine [facility] OTC CLERK.[facility] Work Phone: [facility] Work Phone: 02-10-1999 trivalent poliovirus vaccine, live, oral [facility] OTC CL[facility] Work Phone: [facility] Work Phone: 05-20-1995 diphtheria, tetanus toxoids and acellular pertussis vaccine [facility] OTC CLERK.PRICER Work Phone: [facility] Work Phone: 05-20-1995 haemophilus influenz ae type b vaccine, HbOC conjugate [facility] OTC CLERK.PRICER Work Phone: [facility] Work Phone: 03-04-1995 measles, mumps and rubella virus vaccine [facility] OTC CLERK.PRICER Work Phone: [facility] Work Phone: 1994 hepatitis B vaccine, pediatric or pediatric/adolescent dosage Kanu Pendlebury OTC CLERK.[facility] Work Phone: [facility] Work Phone: 1994 diphtheria, tetanus toxoids and pertussis vaccine Kanu Pendlebury OTC CLERK.[facility] Work Phone: [facility] Work Phone: 1994 haemophilus influenz ae type b vaccine, HbOC conjugate Kanu Pendlebury OTC CLERK.[facility] Work Phone: [facility] Work Phone: 1994 trivalent poliovirus vaccine, live, oral Kanu Pendlebury OTC CLERK.[facility] Work Phone: [facility] Work Phone: 1994 diphtheria, tetanus toxoids and pertussis vaccine Kanu Pendlebury OTC CLERK.[facility] Work Phone: [facility] Work Phone: 1994 haemophilus influenz ae type b vaccine, HbOC conjugate Kanu Pendlebury OTC CLERK.[facility] Work Phone: [facility] Work Phone: 1994 trivalent poliovirus vaccine, live, oral Kanu Pendlebury OTC CLERK.[facility] Work Phone: [facility] Work Phone: 1994 diphtheria, tetanus toxoids and pertussis vaccine [facility] OTC CLERK.[facility] Work Phone: [facility] Work Phone: 1994 haemophilus influenz ae type b vaccine, HbOC conjugate Kanu Pendbury OTC CLERK.[facility] Work Phone: [facility] Work Phone: 1994 hepatitis B vaccine, pediatric or pediatric/adolescent dosage Aknu Pendlebury OTC CLERK.[facility] Work Phone: [facility] Work Phone: 1994 trivalent poliovirus vaccine, live, oral Kanu Liz OTC CLERK.PRICER Work Phone: [facility] Work Phone: 1994 hepatitis B vaccine, pediatric or pediatric/adolescent dosage Kanu Liz OTC CLERK.PRICER Work Phone: [facility] Work Phone: Payers Date Payer Category Payer Self-pay [id number] 2023 Unknown [id number] 2022 Unknown [id number] 2021 Medicaid [id number] Unknown [employer] [id number] Unknown [facility] [id number] Unknown [id number] Unknown [id number] Unknown [id number] Social History Date Type Detail Facility Start: [facility] Start: 01-30-2022 Tobacco use and exposure Smokeless tobacco non-user [facility] Start: 01-30-2022 End: 09-01-2024 Alcohol intake Current non-drinker of alcohol (finding) [facility] Start: 1995 Sex Assigned At Not on file C [facility] Start: 04-25-2021 End: 04-17-2022 Tobacco smoking status NHIS Unknown if ever smoked [facility] Start: 1995 Sex Assigned At Female W [facility] Start: 01-17-2020 End: 07-03-2024 History of Social function [facility] Start: 01-17-2020 End: 07-03-[address] [facility] Adult Depression Screening Assessment 0 [facility] Start: 02-03-2018 Sexual orientation Heterosexual (liset vicente) [facility] Clinical Notes 01-30-2022 to 09-01-2024 Sarai May PA - 09/01/2024 4:35 PM Madhuri Chopra APRN.PRICER - 07/06/2024 8:25 AM Ariel Benavides APRN.PRICER - 07/03/2024 11:55 AM Catie Hill APRN.PRICER - 01/30/2022 5:56 PM EST Note Date & Type Note Facility 09-01-2024 Note HNO ID: [id number] Author: SARAI MAY PA Service: ? Author Type: Physician Life Manager Type: Progress Notes Filed: 09/01/2024 16:36 Note Text: [facility] Sherri Rosen is a 29 year old female. Patient presents with: Migraine: States she has had them for 4 months on and off, has seen PCP and had no testing done, placed on muscle relaxer's, and naproxen, same has had no relief, today @ 7:30 and having them weekly, states Behind R eye usually HPI Migraine: - Severe migraine, primarily right-sided, with onset this morning. - Chronic migraines occurring approximately once a week for the past 4 months. - Current treatment with muscle relaxers and naproxen, prescribed two weeks ago, is ineffective. - Ogdf-fts-rljliwn medications, including Excedrin, Tylenol, and ibuprofen, provide no relief. - Benadryl used at night but causes excessive sedation. - Associated symptoms today include nausea and blurred vision, which have since resolved. 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 - Recent menstrual period ended last Wednesday; denies concern for . - Reports anxiety about upcoming travel due to potential for prolonged migraine episodes. Review of Systems Head: (+) right-sided headache Eyes: (+) right eye pain, (-) blurred vision Neck: (+) neck pain Gastrointestinal: (+) nausea, (-) vomiting Psychiatric: (+) anxiety Objective BP 123/85 Pulse 77 Temp 37.3 ?C (99.2 ?F) Resp 20 Wt 90 kg (198 lb 6.6 oz) LMP 08/21/2024 SpO2 100% BMI 35.15 kg/m? Physical Exam Vitals and nursing note reviewed. Constitutional: General: She is not in acute distress. Appearance: Normal appearance. She is not toxic-appearing. HENT: Mouth/Throat: Mouth: Mucous membranes are moist. Eyes: General: Vision grossly intact. Extraocular Movements: Extraocular movements intact. Conjunctiva/sclera: Conjunctivae normal. Pupils: Pupils are equal, round, and reactive to light. Cardiovascular: Rate and Rhythm: Normal rate and regular rhythm. Pulmonary: Effort: Pulmonary effort is normal. Breath sounds: Normal breath sounds. Skin: General: Skin is warm and dry. Neurological: Mental Status: She is alert. Cranial Nerves: Cranial nerves 2-12 are intact. Sensory: Sensation is intact. Motor: Motor function is intact. Coordination: Coordination is intact. Gait: Gait is intact. { 1. Migraine without aura and without status migrainosus, not intractable (G43.009) - Chronic migraines occurring approximately once per week; current episode refractory to naproxen, muscle relaxants, Excedrin, Tylenol, and ibuprofen. - Acute episode today - Administer Toradol 60 mg IM in clinic. Denies concern . LMP last week - Prescribe Reglan for nausea. - Advised to avoid additional NSAIDs for the rest of the day; may use Tylenol if needed. - May use Benadryl at night for symptom relief. - May use Excedrin Migraine as needed, not to exceed recommended daily dose. - Advised to maintain adequate hydration. - Instructed to go to the emergency room if symptoms become severe or unmanageable. - Advised to follow up with primary care on Wednesday to discuss initiation of abortive and/or preventative migraine therapy. - Referral to primary care for ongoing management. and Recording using milog software for draft documentation of the visit was discussed with the patient/authorized telephone service representative; all questions welcomed and answered. Patient/authorized telephone service representative agreed to proceed Diagnosis and treatment plan were discussed and questions were answered to the patient's satisfaction. Pt acknowledged understanding of concepts and follow up plan. Specific signs and symptoms that would indicate the need for higher level of care were discussed in detail warranting prompt ER evaluation. Differential Diagnoses - Migraine is more likely for the following reason(s): suggested by HANDP - Acute intracranial hemorrhage is less likely for the following reason(s): Duration of symptoms, chronic, no neurodeficit, HANDP not suggestive Disposition The patient was discharged. Procedures [facility] 09-01-2024 History of Present illness Narrative [facility] Subjective Sherri Rosen is a 29 year old female. Patient presents with: Migraine: States she has had them for 4 months on and off, has seen PCP and had no testing done, placed on muscle relaxer's, and naproxen, same has had no relief, today @ 7:30 and having them weekly, states Behind R eye usually HPI Migraine: - Severe migraine, primarily right-sided, with onset this morning. - Chronic migraines occurring approximately once a week for the past 4 months. - Current treatment with muscle relaxers and naproxen, prescribed two weeks ago, is ineffective. - [id number] medications, including Excedrin, Tylenol, and ibuprofen, provide no relief. - Benadryl used at night but causes excessive sedation. - Associated symptoms today include nausea and blurred vision, which have since resolved. 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 - Recent menstrual period ended last Wednesday; denies concern for . - Reports anxiety about upcoming travel due to potential for prolonged migraine episodes. Review of Systems Head: (+) right-sided headache Eyes: (+) right eye pain, (-) blurred vision Neck: (+) neck pain Gastrointestinal: (+) nausea, (-) vomiting Psychiatric: (+) anxiety Objective BP 123/85 Pulse 77 Temp 37.3 C (99.2 F) Resp 20 Wt 90 kg (198 lb 6.6 oz) LMP 08/21/2024 SpO2 100% BMI 35.15 kg/m Physical Exam Vitals and nursing note reviewed. Constitutional: General: She is not in acute distress. Appearance: Normal appearance. She is not toxic-appearing. HENT: Mouth/Throat: Mouth: Mucous membranes are moist. Eyes: General: Vision grossly intact. Extraocular Movements: Extraocular movements intact. Conjunctiva/sclera: Conjunctivae normal. Pupils: Pupils are equal, round, and reactive to light. Cardiovascular: Rate and Rhythm: Normal rate and regular rhythm. Pulmonary: Effort: Pulmonary effort is normal. Breath sounds: Normal breath sounds. Skin: General: Skin is warm and dry. Neurological: Mental Status: She is alert. Cranial Nerves: Cranial nerves 2-12 are intact. Sensory: Sensation is intact. Motor: Motor function is intact. Coordination: Coordination is intact. Gait: Gait is intact. { 1. Migraine without aura and without status migrainosus, not intractable (G43.009) - Chronic migraines occurring approximately once per week; current episode refractory to naproxen, muscle relaxants, Excedrin, Tylenol, and ibuprofen. - Acute episode today - Administer Toradol 60 mg IM in clinic. Denies concern . LMP last week - Prescribe Reglan for nausea. - Advised to avoid additional NSAIDs for the rest of the day; may use Tylenol if needed. - May use Benadryl at night for symptom relief. - May use Excedrin Migraine as needed, not to exceed recommended daily dose. - Advised to maintain adequate hydration. - Instructed to go to the emergency room if symptoms become severe or unmanageable. - Advised to follow up with primary care on Wednesday to discuss initiation of abortive and/or preventative migraine therapy. - Referral to primary care for ongoing management. and Recording using milog software for draft documentation of the visit was discussed with the patient/authorized telephone service representative; all questions welcomed and answered. Patient/authorized telephone service representative agreed to proceed Diagnosis and treatment plan were discussed and questions were answered to the patient's satisfaction. Pt acknowledged understanding of concepts and follow up plan. Specific signs and symptoms that would indicate the need for higher level of care were discussed in detail warranting prompt ER evaluation. Differential Diagnoses - Migraine is more likely for the following reason(s): suggested by H&P - Acute intracranial hemorrhage is less likely for the following reason(s): Duration of symptoms, chronic, no neurodeficit, H&P not suggestive Disposition The patient was discharged. Procedures documented in this encounter [facility] 07-06-2024 Note HNO ID: [id number] Author: MADHURI CHRISTOPHER APRN.PRICER Service: ? Author Type: Nurse Practitioner Type: Progress Notes Filed: 07/06/2024 08:31 Note Text: [facility] Subjective HPI HPI Sherri Rosen is a 29 year old female who presents today for CC of st, h/a, sinus congestion. This started 5 days ago. Has tried otc medication for relief. Symptoms are worsened by nothing. Risk factors daughter pos for strep last week. Patient tested negative on 07/03 for strep. Denies possibility of being . nonsmoker .Patient presents with: Sore Throat: MENDEZ, sinus congestion x5 days, 07/03 for same PAST MEDICAL HISTORY Diagnosis Date Allergic rhinitis, cause unspecified Seizure (HCC) febrile seizure x 1 age 2 , no further seizures. PAST SURGICAL HISTORY Procedure Laterality Date TONSILLECTOMY PRIMARY/SECONDARY Tonsillectomy ALLERGIES Seasonal Allergies MEDICATIONS amoxicillin (AMOXIL) 500 mg capsule Take 1 capsule by mouth two times a day for 10 days. lidocaine viscous (LIDOCAINE VISCOUS) 2 % solution Gargle and spit 10-15mLs every 3-4 hours as need for throat discomfort. (Patient not taking: Reported on 01/30/2022) FAMILY HISTORY Problem Relation Age of Onset Hypertension Maternal Grandmother other (skin cancer) Maternal Grandmother bc AND sc Cancer Paternal Grandmother Stroke Paternal Grandmother Social History Tobacco Use Smoking status: Never Smokeless tobacco: Never Substance Use Topics Alcohol use: No Drug use: No Review of Systems Constitutional: Negative for chills, fatigue and fever. HENT: Positive for rhinorrhea and sore throat. Negative for ear discharge, ear pain, sinus pressure and sinus pain. Eyes: Negative for discharge and redness. Respiratory: Negative for cough, shortness of breath and wheezing. Cardiovascular: Negative for chest pain. Skin: Negative for rash. Neurological: Positive for headaches. Objective BP 127/88 Pulse 93 Temp 36.9 ?C (98.5 ?F) Resp 18 Wt 90.3 kg (199 lb 1.2 oz) LMP 01/20/2018 SpO2 100% BMI 35.26 kg/m? Physical Exam Constitutional: General: She is not in acute distress. Appearance: She is not toxic-appearing or diaphoretic. HENT: Head: Normocephalic and atraumatic. Right Ear: Hearing, tympanic membrane, ear canal and external ear normal. Left Ear: Hearing, tympanic membrane, ear canal and external ear normal. Nose: Nose normal. Mouth/Throat: Lips: [place]. Mouth: Mucous membranes are moist. Pharynx: Uvula midline. Posterior oropharyngeal erythema (uvulitis noted.) present. Eyes: General: Lids are normal. No scleral icterus. Right eye: No discharge. Left eye: No discharge. Conjunctiva/sclera: Conjunctivae normal. Pupils: Pupils are equal, round, and reactive to light. Neck: Trachea: Trachea normal. Cardiovascular: Rate and Rhythm: Normal rate and regular rhythm. Heart sounds: Normal heart sounds. Pulmonary: Effort: Pulmonary effort is normal. Breath sounds: Normal breath sounds. Musculoskeletal: Cervical back: Normal range of motion and neck supple. Lymphadenopathy: Cervical: Cervical adenopathy present. Right cervical: Superficial cervical adenopathy present. Left cervical: Superficial cervical adenopathy present. Skin: Findings: No rash. Neurological: Mental Status: She is alert and oriented to person, place, and time. {ASSESSMENT/PLAN: 1. Strep throat - ICD9: 034.0, ICD10: J02.0 (primary diagnosis) - suspect strep - Group A strep molecular testing positive - antibiotic as written - Discussed supportive care treatment with fluids, rest and analgesia. - Contagious dz precautions discussed- including considered contagious until on antibiotics for 24 hours - The patient should follow up in 3-5 days if symptoms persist or worsen - AMOXICILLIN 500 MG CAPSULE 2. Sore throat - ICD9: 462, ICD10: J02.9 Positive, strep - STREP A MOLECULAR (POC) Madhuri Christopher APRN.PRICER History and Record Review External record(s) reviewed: prior outpatient record. Differential Diagnoses - strep is more likely for the following reason(s): consistent with laboratory studies Disposition The patient was discharged. Procedures [facility] 07-06-2024 History of Present illness Narrative [facility] Subjective HPI HPI Sherri Rosen is a 29 year old female who presents today for CC of st, h/a, sinus congestion. This started 5 days ago. Has tried otc medication for relief. Symptoms are worsened by nothing. Risk factors daughter pos for strep last week. Patient tested negative on 07/03 for strep. Denies possibility of being . nonsmoker .Patient presents with: Sore Throat: MENDEZ, sinus congestion x5 days, 07/03 for same PAST MEDICAL HISTORY Diagnosis Date Allergic rhinitis, cause unspecified Seizure (HCC) febrile seizure x 1 age 2 , no further seizures. PAST SURGICAL HISTORY Procedure Laterality Date TONSILLECTOMY PRIMARY/SECONDARY <AGE 11 Tonsillectomy ALLERGIES Seasonal Allergies MEDICATIONS amoxicillin (AMOXIL) 500 mg capsule Take 1 capsule by mouth two times a day for 10 days. lidocaine viscous (LIDOCAINE VISCOUS) 2 % solution Gargle and spit 10-15mLs every 3-4 hours as need for throat discomfort. (Patient not taking: Reported on 01/30/2022) FAMILY HISTORY Problem Relation Age of Onset Hypertension Maternal Grandmother other (skin cancer) Maternal Grandmother bc & sc Cancer Paternal Grandmother Stroke Paternal Grandmother Social History Tobacco Use Smoking status: Never Smokeless tobacco: Never Substance Use Topics Alcohol use: No Drug use: No Review of Systems Constitutional: Negative for chills, fatigue and fever. HENT: Positive for rhinorrhea and sore throat. Negative for ear discharge, ear pain, sinus pressure and sinus pain. Eyes: Negative for discharge and redness. Respiratory: Negative for cough, shortness of breath and wheezing. Cardiovascular: Negative for chest pain. Skin: Negative for rash. Neurological: Positive for headaches. Objective BP 127/88 Pulse 93 Temp 36.9 C (98.5 F) Resp 18 Wt 90.3 kg (199 lb 1.2 oz) LMP 01/20/2018 SpO2 100% BMI 35.26 kg/m Physical Exam Constitutional: General: She is not in acute distress. Appearance: She is not toxic-appearing or diaphoretic. HENT: Head: Normocephalic and atraumatic. Right Ear: Hearing, tympanic membrane, ear canal and external ear normal. Left Ear: Hearing, tympanic membrane, ear canal and external ear normal. Nose: Nose normal. Mouth/Throat: Lips: [place]. Mouth: Mucous membranes are moist. Pharynx: Uvula midline. Posterior oropharyngeal erythema (uvulitis noted.) present. Eyes: General: Lids are normal. No scleral icterus. Right eye: No discharge. Left eye: No discharge. Conjunctiva/sclera: Conjunctivae normal. Pupils: Pupils are equal, round, and reactive to light. Neck: Trachea: Trachea normal. Cardiovascular: Rate and Rhythm: Normal rate and regular rhythm. Heart sounds: Normal heart sounds. Pulmonary: Effort: Pulmonary effort is normal. Breath sounds: Normal breath sounds. Musculoskeletal: Cervical back: Normal range of motion and neck supple. Lymphadenopathy: Cervical: Cervical adenopathy present. Right cervical: Superficial cervical adenopathy present. Left cervical: Superficial cervical adenopathy present. Skin: Findings: No rash. Neurological: Mental Status: She is alert and oriented to person, place, and time. {ASSESSMENT/PLAN: 1. Strep throat - ICD9: 034.0, ICD10: J02.0 (primary diagnosis) - suspect strep - Group A strep molecular testing positive - antibiotic as written - Discussed supportive care treatment with fluids, rest and analgesia. - Contagious dz precautions discussed- including considered contagious until on antibiotics for 24 hours - The patient should follow up in 3-5 days if symptoms persist or worsen - AMOXICILLIN 500 MG CAPSULE 2. Sore throat - ICD9: 462, ICD10: J02.9 Positive, strep - STREP A MOLECULAR (POC) Madhuri Christopher APRN.JACKIE History and Record Review External record(s) reviewed: prior outpatient record. Differential Diagnoses - strep is more likely for the following reason(s): consistent with laboratory studies Disposition The patient was discharged. Procedures documented in this encounter [facility] 07-03-2024 Note HNO ID: [id number] Author: ARIEL SOLO APRN.PRICER Service: ? Author Type: Nurse Practitioner Type: Progress Notes Filed: 07/03/2024 12:19 Note Text: [facility] Subjective Sherri Rosen is a 29 year old female. Patient presents with: Sore Throat: ST, MENDEZ x 1 day-strep exposure Sore Throat Fever, Headache, and Sore Throat: - Low-grade fever of 99.5?F, onset last night. - Severe headache. - Sore throat described as feeling like a big lump. - Took ibuprofen with some relief. - Recent exposure to daughter with similar symptoms; shared a spoon on Wednesday. - No other family members with symptoms. Constitutional: (+) fever Head: (+) headache Ears/Nose/Mouth/Throat: (+) sore throat, (+) globus Objective BP 128/82 Pulse 76 Temp 37.3 ?C (99.1 ?F) (Tympanic) Resp 18 Wt 90.3 kg (199 lb 1.2 oz) LMP 01/20/2018 SpO2 98% BMI 35.26 kg/m? PAST MEDICAL HISTORY Diagnosis Date Allergic rhinitis, cause unspecified Seizure (HCC) febrile seizure x 1 age 2 , no further seizures. PAST SURGICAL HISTORY Procedure Laterality Date TONSILLECTOMY PRIMARY/SECONDARY Tonsillectomy ALLERGIES Seasonal Allergies MEDICATIONS lidocaine viscous (LIDOCAINE VISCOUS) 2 % solution Gargle and spit 10-15mLs every 3-4 hours as need for throat discomfort. (Patient not taking: Reported on 01/30/2022) FAMILY HISTORY Problem Relation Age of Onset Hypertension Maternal Grandmother other (skin cancer) Maternal Grandmother bc AND sc Cancer Paternal Grandmother Stroke Paternal Grandmother Social History Tobacco Use Smoking status: Never Smokeless tobacco: Never Substance Use Topics Alcohol use: No Drug use: No Physical Exam Vitals and nursing note reviewed. Constitutional: Appearance: Normal appearance. HENT: Mouth/Throat: Mouth: Mucous membranes are moist. Pharynx: Oropharynx is clear. Uvula midline. Postnasal drip present. No posterior oropharyngeal erythema. Tonsils: No tonsillar exudate or tonsillar abscesses. Eyes: Pupils: Pupils are equal, round, and reactive to light. Cardiovascular: Rate and Rhythm: Normal rate and regular rhythm. Pulses: Normal pulses. Heart sounds: Normal heart sounds. Pulmonary: Effort: Pulmonary effort is normal. Breath sounds: Normal breath sounds. Abdominal: General: Abdomen is flat. Lymphadenopathy: Cervical: No cervical adenopathy. Neurological: Mental Status: She is alert. - Onset of symptoms following exposure to daughter's spoon; low-grade fever of 99.5?F, headache, and sensation of a lump in the throat. - Awaiting results of strep PCR test. - Advised use of ibuprofen for symptomatic relief. 1. Sore throat (J02.9) 2. Viral Pharyngitis { and Recording using milog software for draft documentation of the visit was discussed with the patient/authorized telephone service representative; all questions welcomed and answered. Patient/authorized telephone service representative agreed to proceed History and Record Review External record(s) reviewed: prior outpatient record. Findings from review of outpatient records: Previous medical history Differential Diagnoses - Viral pharyngitis is more likely for the following reason(s): suggested by HANDP and consistent with laboratory studies - Strep is less likely for the following reason(s): HANDP not suggestive and laboratory studies not suggestive - OPERATIONS SUPPORT COORDINATOR is less likely for the following reason(s): HANDP not suggestive Disposition The patient was discharged. OTC Medications were advised: Tylenol and Ibuprofen [facility] 07-03-2024 History of Present illness Narrative [facility] Subjective Sherri Rosen is a 29 year old female. Patient presents with: Sore Throat: ST, MENDEZ x 1 day-strep exposure Sore Throat Fever, Headache, and Sore Throat: - Low-grade fever of 99.5 F, onset last night. - Severe headache. - Sore throat described as feeling like a big lump. - Took ibuprofen with some relief. - Recent exposure to daughter with similar symptoms; shared a spoon on Wednesday. - No other family members with symptoms. Constitutional: (+) fever Head: (+) headache Ears/Nose/Mouth/Throat: (+) sore throat, (+) globus Objective BP 128/82 Pulse 76 Temp 37.3 C (99.1 F) (Tympanic) Resp 18 Wt 90.3 kg (199 lb 1.2 oz) LMP 01/20/2018 SpO2 98% BMI 35.26 kg/m PAST MEDICAL HISTORY Diagnosis Date Allergic rhinitis, cause unspecified Seizure (HCC) febrile seizure x 1 age 2 , no further seizures. PAST SURGICAL HISTORY Procedure Laterality Date TONSILLECTOMY PRIMARY/SECONDARY <AGE 11 Tonsillectomy ALLERGIES Seasonal Allergies MEDICATIONS lidocaine viscous (LIDOCAINE VISCOUS) 2 % solution Gargle and spit 10-15mLs every 3-4 hours as need for throat discomfort. (Patient not taking: Reported on 01/30/2022) FAMILY HISTORY Problem Relation Age of Onset Hypertension Maternal Grandmother other (skin cancer) Maternal Grandmother bc & sc Cancer Paternal Grandmother Stroke Paternal Grandmother Social History Tobacco Use Smoking status: Never Smokeless tobacco: Never Substance Use Topics Alcohol use: No Drug use: No Physical Exam Vitals and nursing note reviewed. Constitutional: Appearance: Normal appearance. HENT: Mouth/Throat: Mouth: Mucous membranes are moist. Pharynx: Oropharynx is clear. Uvula midline. Postnasal drip present. No posterior oropharyngeal erythema. Tonsils: No tonsillar exudate or tonsillar abscesses. Eyes: Pupils: Pupils are equal, round, and reactive to light. Cardiovascular: Rate and Rhythm: Normal rate and regular rhythm. Pulses: Normal pulses. Heart sounds: Normal heart sounds. Pulmonary: Effort: Pulmonary effort is normal. Breath sounds: Normal breath sounds. Abdominal: General: Abdomen is flat. Lymphadenopathy: Cervical: No cervical adenopathy. Neurological: Mental Status: She is alert. - Onset of symptoms following exposure to daughter's spoon; low-grade fever of 99.5 F, headache, and sensation of a lump in the throat. - Awaiting results of strep PCR test. - Advised use of ibuprofen for symptomatic relief. 1. Sore throat (J02.9) 2. Viral Pharyngitis { and Recording using milog software for draft documentation of the visit was discussed with the patient/authorized telephone service representative; all questions welcomed and answered. Patient/authorized telephone service representative agreed to proceed History and Record Review External record(s) reviewed: prior outpatient record. Findings from review of outpatient records: Previous medical history Differential Diagnoses - Viral pharyngitis is more likely for the following reason(s): suggested by H&P and consistent with laboratory studies - Strep is less likely for the following reason(s): H&P not suggestive and laboratory studies not suggestive - OPERATIONS SUPPORT COORDINATOR is less likely for the following reason(s): H&P not suggestive Disposition The patient was discharged. OTC Medications were advised: Tylenol and Ibuprofen documented in this encounter [facility] 01-30-2022 History of Present illness Narrative Subjective HPI Nontoxic-appearing female presents urgent care chief plaint right ear pain and sore throat. Duration of symptoms upon arising. Associated symptoms listed above. Most prominent symptom today is right ear pain. Has not use any OTC medications. Denies any known sick contacts. 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 Close contact with individuals. History of ear infections this feels similar. Denies any fever body aches chills productive cough chest pain shortness of breath pleuritic pain hemoptysis nausea vomiting abdominal pain change in bowel or bladder habits. Past medical history prescription medication use and allergies reviewed. Denies chance of is not breast-feeding. BP 130/86 Pulse 94 Temp 37.4 C (99.3 F) Resp 20 Wt 87.5 kg (193 lb) LMP 01/20/2018 SpO2 100% BMI 34.19 kg/m .Patient presents with: Ear Pain: R ear pain, ST x today PAST MEDICAL HISTORY Diagnosis Date Allergic rhinitis, cause unspecified Seizure (HCC) febrile seizure x 1 age 2 , no further seizures. PAST SURGICAL HISTORY Procedure Laterality Date TONSILLECTOMY PRIMARY/SECONDARY <AGE 11 Tonsillectomy ALLERGIES Seasonal Allergies MEDICATIONS lidocaine viscous (LIDOCAINE VISCOUS) 2 % solution Gargle and spit 10-15mLs every 3-4 hours as need for throat discomfort. (Patient not taking: Reported on 01/30/2022) FAMILY HISTORY Problem Relation Age of Onset Hypertension Maternal Grandmother other (skin cancer) Maternal Grandmother bc & sc Cancer Paternal Grandmother Stroke Paternal Grandmother Social History Tobacco Use Smoking status: Never Smokeless tobacco: Never Substance Use Topics Alcohol use: No Drug use: No Review of Systems Constitutional: Negative for chills, fever and malaise/fatigue. HENT: Positive for congestion, ear pain and sore throat. Negative for ear discharge and sinus pain. Eyes: Negative for blurred vision, pain, discharge and redness. Respiratory: Negative for cough, hemoptysis, sputum production, shortness of breath, wheezing and stridor. Cardiovascular: Negative for chest pain. Gastrointestinal: Negative for abdominal pain, diarrhea, nausea and vomiting. Musculoskeletal: Negative for myalgias. Skin: Negative for itching and rash. Neurological: Negative for dizziness and headaches. Objective Physical Exam Vitals and nursing note reviewed. Constitutional: General: She is not in acute distress. Appearance: She is not diaphoretic. HENT: Head: Normocephalic and atraumatic. Jaw: No trismus, tenderness, swelling or pain on movement. Right Ear: Hearing, tympanic membrane, ear canal and external ear normal. No decreased hearing noted. No drainage, swelling or tenderness. Tympanic membrane is not perforated, erythematous or bulging. Left Ear: Hearing, ear canal and external ear normal. No decreased hearing noted. No drainage, swelling or tenderness. Tympanic membrane is erythematous and bulging. Tympanic membrane is not perforated. Nose: Congestion present. Mouth/Throat: Lips: [place]. Mouth: Mucous membranes are moist. Pharynx: Oropharynx is clear. Uvula midline. Posterior oropharyngeal erythema present. No pharyngeal swelling, oropharyngeal exudate or uvula swelling. Eyes: General: Right eye: No discharge. Left eye: No discharge. Conjunctiva/sclera: Conjunctivae normal. Pupils: Pupils are equal, round, and reactive to light. Cardiovascular: Rate and Rhythm: Normal rate and regular rhythm. Heart sounds: Normal heart sounds. Pulmonary: Effort: Pulmonary effort is normal. No tachypnea, accessory muscle usage or respiratory distress. Breath sounds: Normal breath sounds. No stridor. No wheezing, rhonchi or rales. Abdominal: Palpations: Abdomen is soft. Tenderness: There is no abdominal tenderness. Musculoskeletal: General: No tenderness. Normal range of motion. Cervical back: Normal range of motion and neck supple. No rigidity or tenderness. No pain with movement. Normal range of motion. Lymphadenopathy: Head: Right side of head: No submental, submandibular, tonsillar, preauricular, posterior auricular or occipital adenopathy. Left side of head: No submental, submandibular, tonsillar, preauricular, posterior auricular or occipital adenopathy. Cervical: No cervical adenopathy. Right cervical: No superficial or posterior cervical adenopathy. Left cervical: No superficial or posterior cervical adenopathy. Skin: General: Skin is warm and dry. Findings: No rash. Neurological: Mental Status: She is alert and oriented to person, place, and time. ASSESSMENT/PLAN: 1. Pharyngitis, unspecified etiology - ICD9: 462, ICD10: J02.9 (primary diagnosis) - STREP A MOLECULAR (POC) 2. Acute otitis media, left - ICD9: 382.9, ICD10: H66.92 Strep test negative. Erythematous bulging right TM. There is no purulent drainage. Discussed most likely this is viral etiology. However with holidays a safety and antibiotic will be sent to pharmacy. We will not fill unless symptoms are worsening. Patient was educated on supportive therapies. Patient will follow up with primary care provider as needed. Patient was instructed to immediately proceed to emergency room for any new, worsening, or symptoms lasting longer than anticipated. The patient's clinical presentation is otherwise unremarkable at this time. Based on exam and clinical finding, the patient is stable for discharge. Plan of care was discussed with patient. Patient verbalizes understanding and agrees to plan of care. This note was generated using [employer] software. It may contain errors in wording, punctuation, or spelling. Kanu Hill APRN.JACKIE documented in this encounter [facility] Evaluation note Diagnosis Pharyngitis, unspecified etiology- Primary Acute otitis media, left Unspecified otitis media [facility] noteNo assessment information availableWTriHealth McCull[facility] Work Phone: Evaluation note* Diagnosis Onset Date Resolution Status Obstructive Sleep Apnea-Hypopnea Syndrome noneactive Encounter for routine gynecological examination noneactive [facility] Work Phone: Evaluation note* Diagnosis Sore throat- Primary Acute pharyngitis Viral pharyngitis Acute pharyngitis [facility] this [facility]* Diagnosis Strep throat- Primary Streptococcal sore throat Sore throat Acute pharyngitis [facility] this [facility]* Diagnosis Migraine without aura and without status migrainosus, not intractable- Primary Migraine without aura, without mention of intractable migraine without mention of status migrainosus documented in this encounter [facility] Summary Purpose Family History No Family History Records Found Relationship Condition Age at Onset Recorded Date/T aga father Cardiac disease Unknown Advance Directives No Advanced Directives Records Found Advance Directive Response Recorded Date/ Time Advance Directives No December 02, 2018 7:27am Living Will No February 24 7:58am Power of Diesel Machinist No February 24, 2021 7:58am Advance Directive Response Recorded Date/ Time Advance Directives No December 02, 2018 8:27am Living Will No February 24 8:58am Power of Diesel Machinist No February 24, 2021 8:58am Chief Complaint and Reason for Visit Chief Complaint HEART MURMUR Chief Complaint HEART MURMUR Sleep apnea Annual (HR MANAGER) AMY Reason for Visit Obstructive Sleep Ap allison-Hypopnea Syndrome Encounter for routine gynecological examination Chief Complaint Sleep apnea Annual (HR MANAGER) AMY Reason for Visit Obstructive Sleep Ap allison-Hypopnea Syndrome Encounter for routine gynecological examination Chief Complaint Acute bronchitis Additional Source Comments INFORMATION SOURCE (unrecogn ized section and content) DATE CREATED AUTHOR 01/20/2018 [facility] DATE CREATED AUTHOR AUTHOR'S ORGANIZ ATION 01/20/2018 [facility] DATE CREATED AUTHOR AUTHOR'S ORGANIZ ATION 02/27/2024 [facility] DATE CREATED AUTHOR AUTHOR'S ORGANIZ ATION 09/03/2024 [facility] Source Comments (unrecognize d section and content) In the event this informatio n is protected by the Federal Confidentiality of Alcohol and Drug Abuse Patient Records regulations: The Federal rules restrict any use of the information to criminally investigate or prosecute any alcohol or drug abuse patient.[facility] the event this information is protected by the Federal Confidentiality of Alcohol and Drug Abuse Patient Records regulations: The Federal rules restrict any use of the information to criminally investigate or prosecute any alcohol or drug abuse patient.[facility] the event this information is protected by the Federal Confidentiality of Alcohol and Drug Abuse Patient Records regulations: The Federal rules restrict any use of the information to criminally investigate or prosecute any alcohol or drug abuse patient.[facility] the event this information is protected by the Federal Confidentiality of Alcohol and Drug Abuse Patient Records regulations: The Federal rules restrict any use of the information to criminally investigate or prosecute any alcohol or drug abuse patient.[facility] Reason for Visit (unrecogniz ed section and content) Reason Comments Ear Pain R ear pain, ST x tod ay Reason Comments Sore Throat ST, MENDEZ x 1 day-strep exposure Reason Comments Sore Throat MENDEZ, sinus congestion x5 days, 07/03 for same Reason Comments Migraine States she has had t hem for 4 months on and off, has seen PCP and had no testing done, placed on muscle relaxer's, and naproxen, same has had no relief, today @ 7:30 and having them weekly, states Behind R eye usually Care Teams (unrecognized sec tion and content) Team Status: Active Member Role Status Dates Dr. Lele Barraza III, MD Family Provider Active Dr. Ailyn Brasher MD Primary Care Provider Active Team Status: Active Member Role Status Dates Dr. Ailyn Brasher MD Primary Care Provider Active Dr. Vimal Kumar MD Attending Provider Active Team Status: Inactive Member Role Status Dates Dr. Ailyn Brasher MD Primary Care Pr ovider, Attending Provider, Referring Provider Active Team Status: Active Member Role Status Dates Dr. Ailyn Brasher MD Primary Care Pr ovider, Attending Provider, Referring Provider Active Team Status: Inactive Member Role Status Dates No Primary Care Physician Referring Provider Active Dr. Gudelia Gilbert DO Attending Provider Activ e Dr. Ailyn Brasher MD Primary Care Provider Active Team Status: Inactive Member Role Status Dates Dr. Ailyn Brasher MD Primary Care Provider, Referr ing Provider Active Dr. Emerson Kimball MD Attending Provider Active Team Status: Inactive Member Role Status Dates Dr. Ailyn Brasher MD Primary Care Provider Active Dr. Emerson Kimball MD Attending Provider Active Team Status: Inactive Member Role Status Dates Dr. Ailyn Brasher MD Primary Care Provider, Attend ing Provider Active Payroll Examiner Relationship Specialty Start Date End Date Ailyn Brasher MD [address] [facility] [address] [place], [place] [id number] PCP - General Family Medicine 07/06/24 Payroll Examiner Relationship Specialty Start Date End Date Ailyn Brasher MD [address] [facility] [address] [place], [place] [id number] PCP - General Family Medicine 07/06/24 Goals (unrecognized section and content) Goals may be documented in a n alternate sectionGoals may be documented in an alternate sectionGoals may be documented in an alternate sectionGoals may be documented in an alternate sectionGoals may be documented in an alternate section FOR RECORDS PERTAINING TO PATIENTS WHO ARE OR HAVE BEEN ENROLLED IN A CHEMICAL DEPENDENCY/SUBSTANCEABUSE PROGRAM, SOME INFORMATION MAY BE OMITTED. This clinical summary was aggregated from multiple sources. Caution should be exercised in using it in the provision of clinical care. This summary normalizes information from multiple sources, and as a consequence, information in this document may materially change the coding, format and clinical context of patient data. In addition, data may be omitted in some cases. CLINICAL DECISIONS SHOULD BE BASED ON THE PRIMARY CLINICAL RECORDS. [employer] provides no warranty or guarantee of the accuracy or completeness of information in this document.
== END | disposition home or self-care (01) ==
LOC: MFPLAB 11:53
PROVIDERS: PCP Family Medicine; Visit Provider Family Medicine
DX: G43.809 Other migraine, not intractable, without status migrainosus (principal)
CPT/HCPCS: 36415; 80053; 84443; 85025

== ENCOUNTER → 2024-10-13 | Outpatient (CLI) | payer MEDICAID, SELFPAY ==
--- NOTE | 2024-10-13 12:45 | CT_ITS ---
PROCEDURE: BRAIN/HEAD WITHOUT CONTRAST 10/13/2024 REASON FOR EXAM: NEW ONSET MIGRAINES IN 29Y WOMAN. ALSO WAKES FROM SLEEP TECHNIQUE: Procedure Code: CTBR Modality: CT Procedure: BRAIN/HEAD WITHOUT CONTRAST Coronal and Sagittal reconstruction series were provided. One or more dose reduction techniques were used (e.g., Automated exposure control, adjustment of the mA and/or kV according to patient size, use of iterative reconstruction technique. RADIATION DOSE SUMMARY: CTDlvol: 47.06 mGy DLP: 855.03 mGycm COMPARISON: None. FINDINGS: There is no evidence of acute intracranial hemorrhage or infarction. There are no abnormal intracranial masses or mass effects. The ventricular system and basilar cisterns are unremarkable. The skull base and calvarium are normal. There is left lawrence bullosa with nasal septal deviation to the right. There is a right-sided nasal spur. The paranasal sinuses and mastoid air cells are unremarkable. The intraorbital contents are normal. The visualized extracranial soft tissues are normal. CT/Brain/Head without Contrast IMPRESSION: No evidence of intracranial pathology. Other findings as noted. Reading Location: [id number]
== END | disposition home or self-care (01) ==
LOC: CT 12:40
PROVIDERS: PCP Family Medicine; Referring Provider Family Medicine; Visit Provider Family Medicine
DX: G43.809 Other migraine, not intractable, without status migrainosus (principal)
CPT/HCPCS: 70450

== ENCOUNTER → 2025-01-16 | Outpatient (CLI) | payer MEDICAID, SELFPAY | END | disposition home or self-care (01) | LOC: SL 17:12 | PROVIDERS: PCP Family Medicine; Referring Provider Otolaryngology; Visit Provider Otolaryngology | DX: G47.33 Obstructive sleep apnea (adult) (pediatric) (principal) | CPT/HCPCS: 95806 ==

== ENCOUNTER 2025-01-18 15:01 | Emergency (ER) | payer MEDICAID, SELFPAY ==
[2025-01-18 15:02] VITALS: BP 136/98; PULSE 77; RESP 15; TEMP 37; O2SAT 100; BMI 35.7
--- NOTE | 2025-01-18 15:51 | ED.VIS.GI ---
HPI HPI - GI History of Present Illness Chief Complaint: Abd Pain Narrative Narrative: Patient is a 29-year-old female presenting to the emergency department for right lower quadrant abdominal pain that started this morning. She states she woke up with the pain. She reports her last menstrual period was about 2 weeks ago. Has had no abnormal vaginal discharge or vaginal bleeding. States that the pain is like a stabbing pain and stays in the right lower quadrant, does not radiate anywhere. Denies any fever or chills. Denies any nausea or vomiting. Denies any dysuria or hematuria. She had 1 episode of nonbloody diarrhea this morning but took some Pepto-Bismol and has not had any since. Denies any past abdominal surgical history. [facility] Medical History Primary snoring macrosomia hemorrhage History of cardiac murmur Family history of heart murmur Home Medications ?Medication ?Instructions ?Recorded ?Last Taken ?Type cholecalciferol (vitamin D3) 50 50 mcg PO QDAY 01/28/24 Unknown History mcg (2,000 unit) capsule vitamin B complex 1 tab PO QDAY 01/28/24 Unknown History Allergy/AdvReac Type Severity Reaction Status Date / Time oxycodone Allergy Intermediate Vomiting Verified 01/18/25 15:04 Family History Father Heart disease Grandmother No problems noted. Surgical History S/P tonsillectomy and adenoidectomy Social History adopted: No household members: spouse and children housing: house number of children: 2 current occupational status: employed current occupation: [employer] Smoking Status: Former smoker second hand exposure: No alcohol intake: never substance use type: does not use what type of physical activity do you participate in: none seatbelt use: always do you feel safe at home: Yes additional social history: Abram Patient works at [employer] ROS ROS ED ROS Narrative see HPI EXAM Physical Exam Narrative Exam Narrative: Vital signs: Reviewed General: Alert and orientedx3. No acute distress. Well appearing, nontoxic. HEENT: Head is normocephalic and atraumatic, sinuses nontender, pupils equal round and reactive. Nares are patent. Oropharynx and throat exams normal. Neck: Supple without lymphadenopathy nontender Cardiovascular: Regular rate and rhythm, no murmurs. No rubs or gallops. Normal S1 and S2 Respiratory: Clear to auscultation bilaterally. No wheezes, rales, rhonchi Abdominal: Soft and tender in the RLQ. Positive Rovsing sign. Normal bowel sounds. No guarding or rebound. Extremities: No tenderness. No bruising. Normal range of motion. Normal sensation. Skin: No rash or redness. The rest of the physical exam is unremarkable Const Vital Signs: 01/18/25 15:02 01/18/25 17:02 01/18/25 19:00 Temperature 98.6 F Temperature Source Oral Pulse Rate 77 72 72 Respiratory Rate 15 14 16 Blood Pressure 136/98 H 132/89 H 134/80 H Blood Pressure Mean 110 103 98 Pulse Ox 100 99 100 Oxygen Delivery Method Room Air Room Air Room Air 01/18/25 20:00 Temperature 97.5 F L Temperature Source Pulse Rate 72 Respiratory Rate 16 Blood Pressure 131/80 H Blood Pressure Mean 97 Pulse Ox 100 Oxygen Delivery Method MDM MDM MDM Narrative Medical decision making narrative: Patient is a 29-year-old female presenting to the emergency department for right lower quadrant abdominal pain and 1 episode of diarrhea. Patient was seen and examined. Vitals are stable. Patient resting in bed comfortably no acute distress. Differential includes but is not limited to: Appendicitis, UTI, colitis, less likely ovarian torsion given patient's pain is fairly mild, appears comfortable and was not sudden in onset. Less likely STI or tubo-ovarian abscess given patient denies any concern for any STDs or abnormal vaginal discharge Patient was offered analgesia but declines at this time. CT imaging with IV contrast and lab work was ordered. CBC with no leukocytosis and a normal hemoglobin. CMP with no significant abnormalities. Lipase within normal limits. Urinalysis shows no evidence of urinary tract infection. Urine negative. CT abdomen pelvis shows no signs of appendicitis, bowel inflammation, perforation or obstruction. Cholelithiasis without signs of acute cholecystitis. No ovarian cyst noted on the right ovary. Patient was updated on the lab and imaging findings. Updated on the negative workup. Patient discharged from the Emergency Department. I do not feel that the patient's evaluation reveals any acute reason for admission at this time. I instructed them to either follow-up with their primary care physician or promptly return to the Emergency Department for reevaluation should symptoms worsen or new symptoms develop. I explained what symptoms would indicate the need to return to the emergency department. Shared decision making was used. The patient voiced understanding of the treatment plan and is agreeable with it. Clinical impression Acute right lower quadrant pain History & Record Review Discussion w/independent historian: Patient Lab Data Attestation: I reviewed the patient's lab results. Labs: Laboratory Results - last 24 hr 01/18/25 01/18/25 16:00 17:40 WBC 9.4 RBC 4.49 Hgb 13.2 Hct 38.9 MCV 86.6 MCH 29.4 MCHC 33.9 RDW Std Deviation 41.0 RDW Coeff of Toni 13.0 Plt Count 330 MPV 9.6 Immature Gran % (Auto) 0.200 Neut % (Auto) 66.6 Lymph % (Auto) 24.5 [place] % (Auto) 6.2 Eos % (Auto) 1.6 Baso % (Auto) 0.9 Absolute Neuts (auto) 6.3 Absolute Lymphs (auto) 2.31 Nucleated RBC % 0 Sodium 137 Potassium 3.8 Chloride 102 Carbon Dioxide 24.8 Anion Gap 10 BUN 12 Creatinine 0.83 Estim Creat Clear Calc 106.50 Est GFR (MDRD) Non-Af 97 BUN/Creatinine Ratio 15.0 Glucose 93 Calcium 9.7 Total Bilirubin 0.22 AST 20 ALT 29 Alkaline Phosphatase 66 Total Protein 7.5 Albumin 4.5 Globulin 3.0 Albumin/Globulin Ratio 1.5 Lipase 24 Urine Color Yellow Urine Clarity Sl. Cloudy Urine pH 7.0 Ur Specific [place] 1.010 Urine Protein Negative Urine Glucose (UA) Normal Urine Ketones Negative Urine Occult Blood Negative Urine Nitrite Negative Urine Bilirubin Negative Urine Urobilinogen Normal Ur Leukocyte Esterase 100 H Urine RBC 0-5 SEEN Urine WBC 0-5 SEEN Ur Squamous Epith Cells 0-5 SEEN Urine Bacteria RARE Urine Mucus 0 SEEN Urine Test Negative Radiography Diagnostic Testing: Clinical Impression(s) from Imaging Studies Abdomen/Pelvis CT 01/18/25 18:15 IMPRESSION: 1. No signs of appendicitis, bowel inflammation, perforation or obstruction. 2. Cholelithiasis without signs of acute cholecystitis. Reading Location: [facility] Discharge Plan Triage Chief Complaint: Abd Pain ED Provider: Orly Gonzalez Dx/Rx/DC Orders Clinical Impression: Acute right lower quadrant pain Instructions: ED Abdominal Pain Unkn Cause Fem Prescriptions: No Action cholecalciferol (vitamin D3) 50 mcg (2,000 unit) capsule 50 mcg PO QDAY vitamin B complex Tablet 1 tab PO QDAY Primary Care Provider: Romeo Leyva Referrals: Romeo Leyva MD [Primary Care Provider, Family Practice] - As soon as possible Activity Restrictions/Additional Instructions: Your evaluation in the Emergency Department did not reveal any acute reason for admission. However, I want to emphasize that you may be early in the course of a disease process or illness even if it is not present. For this reason you should follow-up within 24 hours for reevaluation with either your primary care physician or if necessary back here in the Emergency Department. You should return to the Emergency Department immediately if your symptoms worsen or new symptoms develop. Print Language: Moldovan Disposition Disposition: Home, Self Care Discharge Date/Time: 01/18/25 20:09
[2025-01-18 16:26] LABS: Hematocrit 38.9 % (37-47); Hemoglobin 13.2 g/dL (12.0-15.0); Immature Granulocytes Count 0.020 X10^3/uL (0.0-0.0); Mean Corp Hgb Conc 33.9 g/dL (32-36); Mean Corpuscular Volume 86.6 fL (81-99); Mean Platelet Vol. 9.6 fl (6.2-12.0); NRBC Flagged by Analyzer 0 % (0-5); Platelet Count 330 K/mm3 (150-450); RBC Distribution Width CV 13.0 % (11.6-14.6); RBC Distribution Width SD 41.0 fl (35.1-43.9); Red Blood Count 4.49 M/mm3 (4.2-5.4); White Blood Count 9.4 K/mm3 (4.4-11.0)
[2025-01-18 16:59] LABS: AST(SGOT) 20 U/L (<=31); Alanine Aminotransfer ALT/SGPT 29 U/L (<=34); Albumin, Serum 4.5 g/dL (3.5-5.0); Alkaline Phosphatase 66 U/L (35-104); Anion Gap 10 (5-15); BUN 12 mg/dL (4-19); BUN/Creat Ratio 15.0 RATIO (10-20); Calcium,Total 9.7 mg/dL (7.6-11.0); Carbon Dioxide 24.8 mmol/L (21.0-32.0); Chloride 102 mmol/L (98-108); Globulin 3.0 g/dL (2.2-4.2); Glucose 93 mg/dL (70-99); Lipase 24 U/L (13-75); Potassium 3.8 mmol/L (3.3-5.1)
[2025-01-18 17:02] VITALS: BP 132/89; PULSE 72; RESP 14; O2SAT 99
[2025-01-18 17:55] LABS: Mucous, Urine 0 SEEN /hpf (<or=2+)
[2025-01-18 18:04] LABS: Internal QC Validated? YES +Cl - CLEAR BKGD; Pregnancy, Urine Negative Negative
[2025-01-18 18:08] LABS: Color, Urine Yellow (Yellow); Glucose, Dipstick Normal (Normal); Ketone-Dipstick Negative (Negative); Leukocyte Esterase-Dipstick 100 /ul (Negative); Nitrite-Dipstick Negative (Negative); Occult Blood-Urine Negative /ul (Negative); Protein-Dipstick Negative (Negative); Specific Gravity, Urine 1.010 (1.002-1.030); Urine Bilirubin Dipstick Negative (Negative)
--- NOTE | 2025-01-18 18:15 | CT_ITS ---
PROCEDURE: ABDOMEN/PELVIS W IV CONT ONLY 01/18/2025 REASON FOR EXAM: RLQ pain since 1 a.m.. Diarrhea. TECHNIQUE: Procedure Code: [id number] Modality: CT Procedure: ABDOMEN/PELVIS W IV CONT ONLY Coronal and Sagittal reconstruction series were provided. CONTRAST: Isovue-300 VOLUME: 94 mL One or more dose reduction techniques were used (e.g., Automated exposure control, adjustment of the mA and/or kV according to patient size, use of iterative reconstruction technique. RADIATION DOSE SUMMARY: CTDlvol: 9.97, 20.99 mGy DLP: 1088 mGycm COMPARISON: CT Abdomen and Pelvis w/o contrast, 01/12/2019 FINDINGS: LUNG BASES: No basilar airspace consolidation or pleural effusion. LIVER: Unremarkable. GALLBLADDER: Multiple gallstones. No wall thickening or pericholecystic inflammatory changes. BILE DUCTS: No ductal dilation. PANCREAS: Unremarkable. SPLEEN: Unremarkable. ADRENAL GLANDS: Unremarkable. KIDNEYS: Unremarkable. The kidneys enhance symmetrically. No hydronephrosis or hydroureter. STOMACH AND BOWEL: No obstruction or perforation. No wall thickening. No CT evidence of colitis or acute diverticulitis. APPENDIX: Normal-appearing appendix. No CT evidence for appendicitis. RETRO/PERITONEUM: Minimal pelvic fluid, possibly physiologic. No free air or fluid collections. LYMPH NODES: No lymphadenopathy. PELVIC ORGANS: Decompressed urinary bladder. Unremarkable uterus and right ovary. Irregular rim hyperdense 2.0 cm cystic lesion in the left ovary, likely a corpus luteum. VASCULATURE: No aortic aneurysm. ABDOMINAL WALL AND SOFT TISSUES: Unremarkable. BONES: No fracture or suspicious osseous abnormality. Significant sacroiliac joint sclerosis bilaterally, [id number], unchanged. CT/Abdomen/Pelvis W IV Cont ONLY IMPRESSION: 1. No signs of appendicitis, bowel inflammation, perforation or obstruction. 2. Cholelithiasis without signs of acute cholecystitis. Reading Location: [id number]
[2025-01-18 19:00] VITALS: BP 134/80; PULSE 72; RESP 16; O2SAT 100
[2025-01-18 19:01] LABS: Red Blood Cells-Urine 0-5 SEEN /hpf (0-5)
[2025-01-18 19:02] LABS: Squamous Epithelial Cells - UA 0-5 SEEN /hpf (5-10)
[2025-01-18 20:00] VITALS: BP 131/80; PULSE 72; RESP 16; TEMP 36.4; O2SAT 100
== END 2025-01-18 20:09 | disposition home or self-care (01) ==
PROVIDERS: Emergency Provider Student in an Organized Health Care Education/Training Program; PCP Family Medicine; Visit Provider Student in an Organized Health Care Education/Training Program
DX: R10.31 Right lower quadrant pain (principal); Z87.891 Personal history of nicotine dependence
CPT/HCPCS: 74177; 80053; 81001; 81025; 83690; 85025; 99283; Q9967; A4216